=== PATIENT | female | born 1970 | race Two or more races ===

== ENCOUNTER 2016-12-11 11:17 | Emergency (ER) | payer OTHER ==
[2016-12-11 11:23] VITALS: BP 131/71; PULSE 110; TEMP 99.4; BMI 25.7
[2016-12-11] MEDS ORDERED: HYDROmorphone HCL CARPU-JECT 1 MG/1 ML DISP.SYRIN IM ONE ×2 (12:12→14:23)
[2016-12-11] MEDS ORDERED: HYDROmorphone HCL CARPU-JECT 1 MG/1 ML DISP.SYRIN ONE ×2 (12:18→14:25)
--- NOTE | 2016-12-11 12:35 | PDOC ---
History of Present Illness - General History Source: Patient Exam Limitations: No Limitations - History of Present Illness Initial Comments: 12/11/16 13:39 Patient is a 46 year old female with a significant past medical history of Baastrup syndrome, pancreatitis (s/p cholecystectomy), nephrolithiasis, and diverticulitis and chronic back pain, DVT (4 years ago), who presents to the ED with complaints of left lower leg pain that began 1 day ago. She reports lower left leg pain began suddenly yesterday when she attempted to sit up. Patient states lower left leg pain is a sharp pain that she rates as a 10/10 in intensity that she states feels similar to previous DVT experience. She reports being prescribed Levaquin, and Flagyl for 5 days after being discharged from [facility] for papillary necrosis of right kidney . She reports experiencing intermittent episodes of nausea, and vomiting x1 secondary left lower leg pain. Denies chest pain, SOB. Denies swelling, erythema. Denies recent trauma. Denies any other symptoms Allergies: Flagyl. Surgical history: Gallbladder removed, Appendectomy. Social history PMD: Dr. Baumann. <Joseph Restrepo - Last Filed: 12/11/16 13:39> - General History Source: Patient Exam Limitations: No Limitations <Corby Cotto - Last Filed: 12/11/16 14:17> - General Chief Complaint: Pain, Acute Stated Complaint: LT LEG PAIN Time Seen by Provider: 12/11/16 11:44 Past History <Joseph Restrepo - Last Filed: 12/11/16 13:39> - Past Medical History Anemia: No Asthma: No Cancer: No 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.) CVA: No COPD: No CHF: No Dementia: No Diabetes: No GI Disorders: Yes (PANCREATITIS,DIVERTICULITIS, COLITIS) Disorders: Yes (right renal papillary necrosis; kidney stones; renal stents on the right si) HTN: No Hypercholesterolemia: No Kidney Stones: Yes Liver Disease: No Seizures: No Thyroid Disease: No Other medical history: SPINAL STENOSIS. HERNIATED DISCS. - Surgical History Abdominal Surgery: Yes Appendectomy: Yes Cardiac Surgery: No Cholecystectomy: Yes Lung Surgery: No Neurologic Surgery: No Orthopedic Surgery: No - Family Disease History Family Disease History: Heart Disease: Father - Immunization History Immunization Up to Date: Yes - Suicide/Smoking/Psychosocial Hx Smoking Status: No Smoking History: Never smoked Have you smoked in the past 12 months: No Number of Cigarettes Smoked Daily: 0 Hx Alcohol Use: No Drug/Substance Use Hx: No Substance Use Type: None Hx Substance Use Treatment: No <Corby Cotto - Last Filed: 12/11/16 14:17> - Past Medical History Allergies/Adverse Reactions: Allergies Allergy/AdvReac Type Severity Reaction Status Date / Time lidocaine [From Lidoderm] Allergy Mild itchiness Verified 12/11/16 11:19 vancomycin Allergy Mild Hives Verified 12/11/16 11:19 morphine Allergy Difficulty Verified 12/11/16 11:19 Breathing ketorolac tromethamine AdvReac Verified 12/11/16 11:19 [From Toradol] NSAIDS (Non-Steroidal AdvReac Verified 12/11/16 11:19 Anti-Inflamma Home Medications: Ambulatory Orders FENTANYL 50mcg PATCH [DURAGESIC 50 mcg PATCH -] 1 each TD Q72H #10 patch.td72 Cyclobenzaprine HCl [Flexeril -] 10 mg PO TID 10/05/15 Gabapentin 300 mg PO TID 10/05/15 Hydrocodone/Acetaminophen [Lorcet 5-325 mg Tablet] 1 each PO PRN PRN 12/11/16 Tramadol HCl 50 mg PO Q6H PRN #12 tablet MDD 4 12/11/16 Review of Systems - Review of Systems Able to Perform ROS?: Yes Comments:: 12/11/16 13:39 GENERAL/CONSTITUTIONAL: No fever or chills. No weakness. HEAD, EYES, EARS, NOSE AND THROAT: No change in vision. No ear pain or discharge. No sore throat. CARDIOVASCULAR: No chest pain or shortness of breath. RESPIRATORY: No cough, wheezing, or hemoptysis. GASTROINTESTINAL: No nausea, vomiting, diarrhea or constipation. GENITOURINARY: No dysuria, frequency, or change in urination. MUSCULOSKELETAL: +Lower left extremity pain No joint or muscle swelling. No neck or back pain. SKIN: No rash NEUROLOGIC: No headache, vertigo, loss of consciousness, or change in strength/ sensation. ENDOCRINE: No increased thirst. No abnormal weight change. HEMATOLOGIC/LYMPHATIC: No anemia, easy bleeding, or history of blood clots. ALLERGIC/IMMUNOLOGIC: No hives or skin allergy. All Other Systems: Reviewed and Negative <Kaye,Joseph - Last Filed: 12/11/16 13:39> *Physical Exam - Vital Signs Last Vital Signs Temp Pulse Resp BP Pulse Ox 99.4 F 110 H 18 131/71 99 12/11/16 11:18 12/11/16 11:18 12/11/16 11:18 12/11/16 11:18 12/11/16 11:18 - Physical Exam Comments: 12/11/16 13:40 GENERAL: Awake, alert, and fully oriented, in no acute distress HEAD: No signs of trauma EYES: PERRLA, EOMI, sclera anicteric, conjunctiva clear ENT: Auricles normal inspection, hearing grossly normal, nares patent, oropharynx clear without exudates. Moist mucosa NECK: Normal ROM, supple, no lymphadenopathy, JVD, or masses LUNGS: Breath sounds equal, clear to auscultation bilaterally. No wheezes, and no crackles HEART: Regular rate and rhythm, normal S1 and S2, no murmurs, rubs or gallops ABDOMEN: Soft, nontender, normoactive bowel sounds. No guarding, no rebound. No masses EXTREMITIES: 2+ DP pulse. +Tenderness to distal calf. +sensation intact. + Tenderness to palpation distal left calf. Negative Margareth sign. Normal range of motion, no edema. No clubbing or cyanosis. No cords, erythema, or tenderness NEUROLOGICAL: Cranial nerves II through XII grossly intact. Normal speech, normal gait SKIN: Warm, Dry, normal turgor, no rashes or lesions noted. <Joseph Restrepo - Last Filed: 12/11/16 13:39> - Vital Signs Last Vital Signs Temp Pulse Resp BP Pulse Ox 99.4 F 110 H 18 131/71 99 12/11/16 11:18 12/11/16 11:18 12/11/16 11:18 12/11/16 11:18 12/11/16 11:18 <Corby Cotto - Last Filed: 12/11/16 14:17> ED Treatment Course - Medications Given in the ED: ED Medications Discontinued Medications Generic Name Dose Route Start Last Admin Trade Name Freq PRN Reason Stop Dose Admin Hydromorphone HCl 1 mg 12/11/16 12:12 12/11/16 12:17 Dilaudid Injection - IM 12/11/16 12:13 1 mg ONCE ONE Administration <Joseph Restrepo - Last Filed: 12/11/16 13:39> - RADIOLOGY Radiology Studies Ordered: Category Date Time Status DUPLEX VASCUL US-1 LEG [US] Stat Ultrasound 12/11/16 12:12 Ordered - Medications Given in the ED: ED Medications Discontinued Medications Generic Name Dose Route Start Last Admin Trade Name Freq PRN Reason Stop Dose Admin Hydromorphone HCl 1 mg 12/11/16 12:12 12/11/16 12:17 Dilaudid Injection - IM 12/11/16 12:13 1 mg ONCE ONE Administration <Corby Cotto - Last Filed: 12/11/16 14:17> Medical Decision Making - Medical Decision Making 12/11/16 12:30 A portion of this note was documented by scribe services under my direction. I have reviewed the details of the note, within reason, and agree with the documentation with the following case summary and management plan written by me. Patient treated in the ED. Nursing notes are reviewed and incorporated into the medical decision-making. Vital signs reviewed. Vital Signs Temp Pulse Resp BP Pulse Ox 99.4 F 110 H 18 131/71 99 12/11/16 11:18 12/11/16 11:18 12/11/16 11:18 12/11/16 11:18 12/11/16 11:18 46 year old female c/ hx of Baastrup Syndrome, DJD and chronic back pain p/w left lower calf pain. The patient reported sudden pain yesterday, and thought this was secondary to a DVT. However, pt was recently discharged several days ago for pseudomonas UTI and discharged on levaquin. No fevers, chills. Differential includes DVT vs. adverse reaction (tendonitis) 2/2 fluoroquinolone. Ultrasound reviewed. No DVTs. 12/11/16 14:[address] Alon Cabrera (ID). Dr. Cabrera at bedside and examined patient. Also feels that fluoroquinolones may be potential cause of leg pain. We both recommended to discontinue the fluoroquinolone. Given that the patient has no symptoms, no fever, no pain, will not recommend any new antibiotics. Return precautions given including reoccurence of fevers or urinary symptoms. Pt feels better and understands to be cautious with ambulation as to avoid tendon rupture. Pt verbalizes understanding and agrees with plan. Will discharge with tramadol. Pt states that she had tolerated tramadol with no allergic reaction I discussed the physical exam findings, ancillary test results and final diagnoses with the patient. I answered all of the patient's questions. The patient was satisfied with the care received and felt comfortable with the discharge plan and treatment plan. The patient will call their primary care physician within 24 hours to arrange follow-up and will return to the Emergency Department with any new, persistant or worsening symptoms. <Corby Cotto - Last Filed: 12/11/16 14:17> *DC/Admit/Observation/Transfer - Attestations Scribe Attestion: 12/11/16 13:40 Documentation prepared by Joseph Restrepo, acting as medical policy specialist for Corby Cotto MD. <Joseph Restrepo - Last Filed: 12/11/16 13:39> - Discharge Dispostion Admit: No <Corby Cotto - Last Filed: 12/11/16 14:17> Diagnosis at time of Disposition: Tendonitis - Discharge Dispostion Disposition: HOME Condition at time of disposition: Stable - Prescriptions Prescriptions: Tramadol HCl 50 mg PO Q6H PRN #12 tablet MDD 4 PRN Reason: Severe Pain - Referrals Referrals: Rina Baumann MD [Primary Care Provider] - - Patient Instructions Printed Discharge Instructions: DI for Tendinitis, DI for Achilles Tendinopathy Additional Instructions: Please STOP the levaquin. Your tendinitis may be from the antibiotics. Please elevate the leg and do not participate in heavy physical activity until your pain has resolved. Follow up with your doctor.
--- NOTE | 2016-12-11 13:47 | PN ---
Progress Note, Physician Chief Complaint: ID 46 year old Mike Erwin female recently discharged from [facility] where she was treated for Psuedomonal UTI. Apparently spent 3-4 days after she presented with RUQ pain and diagnosed with UTI per patient. She had no venous access and was given oral Levofloxacin for a few days in the hospital and given Rx at home whcih she took for a 2-3 days. She presents now complaining of pain in the left calf area radiating into her achilles area and heel. Pain ful to walk. A doppler here negative for DVT. She has no fever chills urinary complaints. She reports a history of papillary necrosis of the right kidney. Other history chronic back pain ?neprolithiasis DVT years ago cholecystectomy. Lives with her mom locally. - Objective Vital Signs: Vital Signs Temperature 99.4 F 12/11/16 11:18 Pulse Rate 110 H 12/11/16 11:18 Respiratory Rate 18 12/11/16 11:18 Blood Pressure 131/71 12/11/16 11:18 O2 Sat by Pulse Oximetry (%) 99 12/11/16 11:18 Constitutional: Yes: Well Nourished, No Distress Eyes: Yes: WNL, Conjunctiva Clear HENT: Yes: WNL, Atraumatic Neck: Yes: WNL, Supple Cardiovascular: Yes: WNL, Regular Rate and Rhythm, S1, S2 Respiratory: Yes: WNL, Regular, CTA Bilaterally Gastrointestinal: Yes: WNL, Normal Bowel Sounds, Soft. No: Tenderness, Tenderness, Epigastrium, Tenderness, Rebound Extremities: Yes: Other (Tender long left medialcalf area extendingto achilles tendon) Edema: No Problem List - Problems (1) Renal papillary necrosis Code(s): N17.2 - ACUTE KIDNEY FAILURE WITH MEDULLARY NECROSIS (2) Pseudomonas urinary tract infection Code(s): N39.0 - URINARY TRACT INFECTION, SITE NOT SPECIFIED B96.5 - PSEUDOMONAS (MALLEI) CAUSING DISEASES CLASSD ELSWHR (3) Achilles tendinitis Code(s): M76.60 - ACHILLES TENDINITIS, UNSPECIFIED LEG Assessment/Plan Assessment Suspect floroquinolone induced tendinitis involving the achilles tendon Recent pseudomonal UTI per patient with currently no symptoms Plan Would discontinue Levoflox immediately. Advise follow up with orthopedics should pain worsen or persist Minimize weight bearing for a while Patient has poor venous access She is not febrile and has no urinary complaints.The oral options are none and she did take 6 doses of a quinolone which hopefully is enough to treat ? UTI Follow up PMD Rick DELGADO
== END 2016-12-11 14:30 | disposition home or self-care (01) ==
LOC: JER 11:17
PROC: 3E023NZ Introduction of Analgesics, Hypnotics, Sedatives into Muscle, Percutaneous Approach (ICD-10-PCS; principal; 2016-12-11)
DX: M77.9 Enthesopathy, unspecified (principal); M48.20 Kissing spine, site unspecified; N20.0 Calculus of kidney; G89.29 Other chronic pain; Z86.718 Personal history of other venous thrombosis and embolism
CPT/HCPCS: 93971-TC; 96372; 99282-25

== ENCOUNTER 2017-03-08 09:35 | Inpatient (IN) | payer OTHER ==
--- NOTE | 2017-03-08 09:52 | PDOC ---
History of Present Illness - History of Present Illness Initial Comments: 03/08/17 10:07 CC: N/V/abdominal pain HPI: 46 year old female with a significant past medical history of Baastrup syndrome, pancreatitis (s/p cholecystectomy), nephrolithiasis, and diverticulitis and chronic back pain, DVT (4 years ago), who presents to the ED Nausea vomiting diffuse abdominal pain maximally in the epigastrium since yesterday greater than 10 episodes of vomiting inability tolerate fluids also complaining of decreased flatus symptoms are moderate to severe persistent constant no exacerbating or alleviating factors Allergies: Flagyl. Surgical history: Gallbladder removed, Appendectomy. Social history PMD: Dr. Baumann. <Jae King - Last Filed: 03/08/17 16:45> - General History Source: Patient Exam Limitations: No Limitations <Karen Mejia - Last Filed: 03/08/17 16:53> - General Chief Complaint: Nausea/Vomiting Stated Complaint: VOMITING, PAIN/ ABD, BACK Time Seen by Provider: 03/08/17 09:48 Past History - Past Medical History Anemia: No Asthma: No Cancer: No 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.) CVA: No COPD: No CHF: No Dementia: No Diabetes: No GI Disorders: Yes (PANCREATITIS,DIVERTICULITIS, COLITIS) Disorders: Yes (right renal papillary necrosis; kidney stones; renal stents on the right si) HTN: No Hypercholesterolemia: No Kidney Stones: Yes Liver Disease: No Seizures: No Thyroid Disease: No - Surgical History Abdominal Surgery: Yes Appendectomy: Yes Cardiac Surgery: No Cholecystectomy: Yes Lung Surgery: No Neurologic Surgery: No Orthopedic Surgery: No - Family Disease History Family Disease History: Heart Disease: Father - Immunization History Immunization Up to Date: Yes - Suicide/Smoking/Psychosocial Hx Smoking Status: No Smoking History: Never smoked Have you smoked in the past 12 months: No Number of Cigarettes Smoked Daily: 0 Hx Alcohol Use: No Drug/Substance Use Hx: No Substance Use Type: None Hx Substance Use Treatment: No <Jae King - Last Filed: 03/08/17 16:45> <Karen Mejia - Last Filed: 03/08/17 16:53> - Past Medical History Allergies/Adverse Reactions: Allergies Allergy/AdvReac Type Severity Reaction Status Date / Time lidocaine [From Lidoderm] Allergy Mild itchiness Verified 03/08/17 09:43 vancomycin Allergy Mild Hives Verified 03/08/17 09:43 gentamicin Allergy Verified 03/08/17 10:16 morphine Allergy Difficulty Verified 03/08/17 09:43 Breathing ketorolac tromethamine AdvReac Verified 03/08/17 09:43 [From Toradol] NSAIDS (Non-Steroidal AdvReac Verified 03/08/17 09:43 Anti-Inflamma Home Medications: Ambulatory Orders FENTANYL 50mcg PATCH [DURAGESIC 50 mcg PATCH -] 1 each TD Q72H #10 patch.td72 Cyclobenzaprine HCl [Flexeril -] 10 mg PO TID 10/05/15 Gabapentin 300 mg PO TID 10/05/15 Hydrocodone/Acetaminophen [Lorcet 5-325 mg Tablet] 1 each PO PRN PRN 12/11/16 Tramadol HCl 50 mg PO Q6H PRN #12 tablet MDD 4 12/11/16 Review of Systems - Review of Systems Comments:: 03/08/17 12:09 ROS: A complete review of 10 out of 10 review of systems is taken and is negative apart from what is previously mentioned below and in the HPI. <Jae King - Last Filed: 03/08/17 16:45> *Physical Exam - Physical Exam Comments: 03/08/17 12:09 Vitals: Triage Vital signs reviewed General Appearance: Moderate acute distress, well nourished well developed, Head: Atraumatic, Neck: Supple;No Nucal rigidity Chest Wall: Nontender Cardiac: Regular rate and rhythym, no murmurs, no rubs, no gallops, Lungs: Clear to auscultation bilateral, good air movement bilaterally, Abdomen: Soft, non distended, normal bowel sounds, epigastric tenderness to palpation Extremities: Full range of motion to all extremities, no cyanosis, clubbing, or edema Skin: Warm and dry, no rashes or lesions, no rash, no petechiae Neuro: AOX3; Cranial Nerves 2-12 grossly intact, Strength intact to all extremities, Sensation intact to all extremities,gait normal Psych: normal mood, normal affect <Jae King - Last Filed: 03/08/17 16:45> - Vital Signs Last Vital Signs Temp Pulse Resp BP Pulse Ox 101 H 20 139/95 100 03/08/17 10:14 03/08/17 10:14 03/08/17 10:14 03/08/17 10:14 <Karen Mejia - Last Filed: 03/08/17 16:53> ED Treatment Course - LABORATORY CBC & Chemistry Diagram: 03/08/17 11:41 03/08/17 11:41 <Jae King - Last Filed: 03/08/17 16:45> - LABORATORY CBC & Chemistry Diagram: 03/08/17 11:41 03/08/17 11:41 - Medications Given in the ED: ED Medications Discontinued Medications Generic Name Dose Route Start Last Admin Trade Name Freq PRN Reason Stop Dose Admin Ondansetron HCl 4 mg 03/08/17 10:07 03/08/17 10:10 Zofran Odt - SL 03/08/17 10:08 4 mg ONCE ONE Administration <Karen Mejia - Last Filed: 03/08/17 16:53> Medical Decision Making - Medical Decision Making 03/08/17 16:46 CT findings as dictated. Case discussed with radiologist. Slight stranding around the right kidney there is hydronephrosis and evidence of obstructing stone , urology consulted at 428pm. Patient will need stent placement. Patient made nothing by mouth preoperative labs ordered Zosyn given We will admit to medicine for further management patient to have stent placed this evening. <Jae King - Last Filed: 03/08/17 16:45> - Medical Decision Making 03/08/17 11:24 46 year old female with a significant past medical history of Baastrup syndrome , pancreatitis (s/p cholecystectomy), nephrolithiasis, and diverticulitis and chronic back pain, DVT (4 years ago), who presents to the ED with complaints of left lower leg pain that began 1 day ago. Imaging: CT Abdomen & Pelvis w/o contrast Reported by: Dr. Watkins Reviewed by: Dr. King Impression: A 1.0 * 0.5 cm distal right ureteral calculus is seen adjacent to the level of the ureterovesical junction. There is resultant hydronephrosis which is at least moderate. Plan Blood Bank: Type and Screen Medications: Fentanyl Injection, Zofran, Normal Saline, Hydromorphone, Lorazepam , Piperacillin CT Scan: Abdomen and Pelvis with contrast Cardiology: EKG Radiology: Chest XR Labs: CBC, CMP, lactic acid, lipase <Karen Mejia - Last Filed: 03/08/17 16:53> *DC/Admit/Observation/Transfer - Discharge Dispostion Admit: Yes <Jae King - Last Filed: 03/08/17 16:45> - Attestations Scribe Attestion: 03/08/17 11:28 Documentation prepared by Karen Mejia, acting as biomedical equipment tech for Jae King MD. <Karen Mejia - Last Filed: 03/08/17 16:53> Diagnosis at time of Disposition: Hydronephrosis with obstructing calculus
[2017-03-08] MEDS ORDERED: SODIUM CHLORIDE 0.9% 1000 ML INFUS.BAG IV ONE ×2 (09:59→12:59)
[2017-03-08] MEDS ORDERED: ONDANSETRON 4 MG/2 ML VIAL IVPUSH ONE (09:59)
[2017-03-08] MEDS ORDERED: ONDANSETRON *ODT* 4 MG TABLET SL ONE (10:07)
[2017-03-08] MEDS ORDERED: ONDANSETRON *ODT* 4 MG TABLET ONE (10:11)
[2017-03-08] MEDS ORDERED: ONDANSETRON 4 MG/2 ML VIAL ONE (10:11)
[2017-03-08 11:56] LABS: HEMATOCRIT 42.4 % (32.4-45.2); HEMOGLOBIN 13.6 GM/dL (10.7-15.3); MCHC 32.1 g/dl (32.0-36.0); MEAN CELL VOLUME 87.1 fl (80-96); MEAN PLT VOLUME 7.7 fl (7.5-11.1); PLATELET COUNT 439 K/MM3 (134-434); RBC 4.86 M/mm3 (3.60-5.2); RDW 15.9 % (11.6-15.6); WHITE BLOOD COUNT 21.4 K/mm3 (4.0-10.0)
[2017-03-08 12:23] LABS: ALBUMIN 4.4 g/dl (3.4-5.0); ANION GAP 12 (8-16); BILIRUBIN,TOTAL 0.8 mg/dL (0.2-1.0); BLOOD UREA NITROGEN 13 mg/dL (7-18); CHLORIDE 105 mmol/L (98-107); CO2 21 mmol/L (21-32); CREATININE 1.1 mg/dL (0.55-1.02); GLUCOSE,RANDOM 93 mg/dL (74-106); LIPASE 83 U/L (73-393); POTASSIUM 3.5 mmol/L (3.5-5.1); SGOT/AST 20 U/L (15-37); SGPT/ALT 28 U/L (12-78); SODIUM 138 mmol/L (136-145); TOT PROT 8.5 g/dl (6.4-8.2)
[2017-03-08 12:24] LABS: ALK PHOS 88 U/L (45-117)
[2017-03-08 12:51] LABS: PLATELET ESTIMATE INCREASED
[2017-03-08] MEDS ORDERED: PIPERACIL/TAZOB 3.375 GM 3.375 GM/50 ML PREMIX IVPB ONE (13:00)
[2017-03-08] MEDS ORDERED: PIPERACILLIN/TAZOB 3.375 GM 3.375 GM in DEXTROSE 5%-WATER - 100 ML IVPB ONE ×2 (14:00→14:45)
[2017-03-08] MEDS ORDERED: HYDROmorphone HCL CARPU-JECT 2 MG/1 ML DISP.SYRIN ONE (14:30)
[2017-03-08 15:11] LABS: URINE APPEARANCE CLEAR; URINE BILIRUBIN NEGATIVE (NEGATIVE); URINE BLOOD NEGATIVE (NEGATIVE); URINE COLOR STRAW; URINE GLUCOSE (UA) NEGATIVE (NEGATIVE); URINE KETONE TRACE (NEGATIVE); URINE LEUK ESTERASE TRACE (NEGATIVE); URINE NITRITE NEGATIVE (NEGATIVE); URINE PROTEIN NEGATIVE (NEGATIVE); URINE UROBILINOGEN NEGATIVE mg/dL (0.2-1.0)
[2017-03-08] MEDS ORDERED: HYDROmorphone HCL CARPU-JECT 1 MG/1 ML DISP.SYRIN IVPUSH ONE (15:11)
[2017-03-08 15:12] LABS: EPI CELLS RARE /HPF (FEW); URINE MUCUS RARE
--- NOTE | 2017-03-08 16:37 | HP ---
CHIEF COMPLAINT: " Right sided abdominal pain" PCP: WOLFGANG Baumann. HISTORY OF PRESENT ILLNESS: Patient is a 46 year old female presented to the ED with the chief complaint of worsening right abdominal pain since 3 days. As per the patient, the pain started 3 days ago, worsening since last night at around 11pm and this morning at 5am waking up from her sleep. She describes the pain to be excruciating, 10/ 10 in intensity, cramping in nature, non radiating, associated with nausea and more than 10 episodes of vomiting. Vomitus mainly contained food particles and later it was greenish in color. Also reports to have chills but no fever or rigors. She then came to the ED for further evaluation. Patient also mentions to have chest pain, occasionally, centrally located, pressure type, lasting for few seconds. Denies palpitation, sob, cough, headache, loc, trauma, hematuria, dysuria, urgency or frequency. Has chronic back pain for which she takes pain meds. Is on disabilty. Uses cane for support. Lives with her mother. Sleep/Appetite normal prior to illness. ER course was notable for: (1) Afebrile, tachycardic, Leukocytosis, lactic acidosis (2) Abdominal/Pelvis CT with IV contrast: Obstructed right uteteral stone at UVP junction with right moderate hydronephrosis (3) IV Fluids, IV Zosyn, Fentanyl, Zofran Recent Travel: PAST MEDICAL HISTORY: Baastrup syndrome, Gallstone pancreatitis, Had ERCP and cholecystectomy, diverticulitis, colitis, H.Pylori on 11/29, Renal Calculi, ( papillary necrosis, multiple renal stent- removed, chronic back pain, DVT (4 years ago) PAST SURGICAL HISTORY: Tubal ligation in 1997, Appendectomy, Cholecystectomy Social History: Smoking: Denies Alcohol: Denies Drugs: Denies Family History: Allergies lidocaine [From Lidoderm] Allergy (Mild, Verified 03/08/17 09:43) itchiness vancomycin Allergy (Mild, Verified 03/08/17 09:43) Hives gentamicin Allergy (Verified 03/08/17 10:16) morphine Allergy (Verified 03/08/17 09:43) Difficulty Breathing ketorolac tromethamine [From Toradol] Adverse Reaction (Verified 03/08/17 09:43) KIDNEY BLEEDING NSAIDS (Non-Steroidal Anti-Inflamma Adverse Reaction (Verified 03/08/17 09:43) due to increased bleeding due to necrosis HOME MEDICATIONS: Home Medications Medication Instructions Recorded FENTANYL 50mcg PATCH [DURAGESIC 50 1 each TD Q72H #10 patch.td72 07/16/14 mcg PATCH -] Cyclobenzaprine HCl [Flexeril -] 10 mg PO TID 10/05/15 Gabapentin 300 mg PO TID 10/05/15 Hydrocodone/Acetaminophen [Lorcet 1 each PO PRN PRN 12/11/16 5-325 mg Tablet] Tramadol HCl 50 mg PO Q6H PRN #12 tablet MDD 4 12/11/16 REVIEW OF SYSTEMS CONSTITUTIONAL: Present: generalized weakness, Absent: fever, chills, diaphoresis, malaise, loss of appetite, weight change HEENT: Absent: rhinorrhea, nasal congestion, throat pain, throat swelling, difficulty swallowing, mouth swelling, ear pain, eye pain, visual changes CARDIOVASCULAR: Absent: chest pain, syncope, palpitations, irregular heart rate, lightheadedness , peripheral edema RESPIRATORY: Absent: cough, shortness of breath, dyspnea with exertion, orthopnea, wheezing, stridor, hemoptysis GASTROINTESTINAL: Present: nausea, vomiting, Absent: abdominal pain, abdominal distension, diarrhea, constipation, melena, hematochezia GENITOURINARY: Present: flank pain Absent: dysuria, frequency, urgency, hesitancy, hematuria, genital pain MUSCULOSKELETAL: Absent: myalgia, arthralgia, joint swelling, back pain, neck pain SKIN: Absent: rash, itching, pallor HEMATOLOGIC/IMMUNOLOGIC: Absent: easy bleeding, easy bruising, lymphadenopathy, frequent infections ENDOCRINE: Absent: unexplained weight gain, unexplained weight loss, heat intolerance, cold intolerance NEUROLOGIC: Absent: headache, focal weakness or paresthesias, dizziness, unsteady gait, seizure, mental status changes, bladder or bowel incontinence PSYCHIATRIC: Absent: anxiety, depression, suicidal or homicidal ideation, hallucinations. PHYSICAL EXAMINATION Vital Signs - 24 hr 03/08/17 03/08/17 03/08/17 10:14 11:45 14:14 Temperature 98.2 F Pulse Rate 101 H Pulse Rate [ 103 H Apical] Respiratory 20 Rate Blood Pressure 139/95 Blood Pressure 129/67 [Left Arm] O2 Sat by Pulse 100 99 Oximetry (%) GENERAL: Awake, alert, and fully oriented, in no acute distress. HEAD: Normal with no signs of trauma. EYES: Pupils equal, round and reactive to light, extraocular movements intact, sclera anicteric, conjunctiva clear. No lid lag. EARS, NOSE, THROAT: Ears normal, nares patent, oropharynx clear without exudates. Moist mucous membranes. NECK: Normal range of motion, supple without lymphadenopathy, JVD, or masses. LUNGS: Breath sounds equal, clear to auscultation bilaterally. No wheezes, and no crackles. No accessory muscle use. HEART: Regular rate and rhythm, normal S1 and S2 without murmur, rub or gallop. ABDOMEN: Soft, nontender, not distended, normoactive bowel sounds, no guarding, no rebound, no masses. No hepatomegaly or splenomegaly. MUSCULOSKELETAL: Normal range of motion at all joints. No bony deformities or tenderness. No CVA tenderness. UPPER EXTREMITIES: 2+ pulses, warm, well-perfused. No cyanosis. No clubbing. No peripheral edema. LOWER EXTREMITIES: 2+ pulses, warm, well-perfused. No calf tenderness. No peripheral edema. NEUROLOGICAL: Cranial nerves II-XII intact. Normal speech. Normal gait. PSYCHIATRIC: Cooperative. Good eye contact. Appropriate mood and affect. SKIN: Warm, dry, normal turgor, no rashes or lesions noted, normal capillary refill. Laboratory Results - last 24 hr 03/08/17 03/08/17 03/08/17 11:41 11:41 11:41 WBC 21.4 H D RBC 4.86 Hgb 13.6 Hct 42.4 MCV 87.1 MCH 28.0 MCHC 32.1 RDW 15.9 H Plt Count 439 H MPV 7.7 Total Counted 100 Neutrophils % No Result Required. Neutrophils % (Manual) 80.0 Lymphocytes % No Result Required. Lymphocytes % (Manual) 12.0 Monocytes % (Manual) 8 Platelet Estimate Increased Platelet Comment No clumping noted Sodium 138 Potassium 3.5 Chloride 105 Carbon Dioxide 21 Anion Gap 12 BUN 13 D Creatinine 1.1 H D Creat Clearance w eGFR 53.71 Random Glucose 93 Lactic Acid 2.3 H* Calcium 9.0 Total Bilirubin 0.8 AST 20 ALT 28 Alkaline Phosphatase 88 Total Protein 8.5 H Albumin 4.4 Lipase 83 Urine Color Urine Appearance Urine pH Ur Specific Brandywine Urine Protein Urine Glucose (UA) Urine Ketones Urine Blood Urine Nitrite Urine Bilirubin Urine Urobilinogen Urine WBC (Auto) Urine RBC (Auto) Ur Epithelial Cells Urine Mucus 03/08/17 15:03 WBC RBC Hgb Hct MCV MCH MCHC RDW Plt Count MPV Total Counted Neutrophils % Neutrophils % (Manual) Lymphocytes % Lymphocytes % (Manual) Monocytes % (Manual) Platelet Estimate Platelet Comment Sodium Potassium Chloride Carbon Dioxide Anion Gap BUN Creatinine Creat Clearance w eGFR Random Glucose Lactic Acid Calcium Total Bilirubin AST ALT Alkaline Phosphatase Total Protein Albumin Lipase Urine Color Straw Urine Appearance Clear Urine pH 7.0 Ur Specific [place] 1.024 Urine Protein Negative Urine Glucose (UA) Negative Urine Ketones Trace H Urine Blood Negative Urine Nitrite Negative Urine Bilirubin Negative Urine Urobilinogen Negative Urine WBC (Auto) 1 Urine RBC (Auto) 1 Ur Epithelial Cells Rare Urine Mucus Rare ASSESSMENT/PLAN: Patient is a 46-year old female with significant past medical history of Baastrup syndrome, Gallstone pancreatitis, Had ERCP and cholecystectomy, diverticulitis, colitis, H.Pylori on 11/29, Renal Calculi, (papillary necrosis, multiple renal stent- removed, chronic back pain, DVT (4 years ago) presented with abdominal pain, vomiting was found to be in Obstructed right ureteral stone at UVP junction with right moderate hydronephrosis. # Sepsis secondary to Obstructed right ureteral stone at UVP junction with right moderate hydronephrosis/ likely has pyelonephritis c/o abdominal pain associated with >10 episodes of vomiting, h/o renal stent in the past On arrival, she was afebrile, tachycardic, Leukocytosis, lactic acidosis Patient going to OR from ED for a stent placement, Dr. Perez consult requested. Preop eval- EKG, CXR, Coags, type and screen. Admit in Med-Surg NPO Continue IV NS @ 100mls/hr IV Zosyn 3.375mg, will place ID consult for approval IV Dilaudid 0.5 mg Q4H PRN Fentanyl patch changed today, to be changed on 05/06/2017 midnight IV Phenargan Q6H PRN Villarreal catheter, monitor output Lactic acid resolved f/up urine and blood cultures Needs outpatient follow up with urology # Occasional Chest pain Needs stress test as outpatient. ON admission, EKG normal sinus # Chronic back pain likely due to Basstrup syndrome Hold home pain meds, patient is already on IV Dilaudid Continue Gabapentin 300mg TID after surgery Reevaluate in am and adjust the medication # FEN IV NS @ 100mls/hr Electrolytes to be repeated in AM NPO, can eat after surgery # Prophylaxis For DVT: Heparin 5000 IU sq TID, post operative care For GI: Not indicated # Code Status: Full Code Illness, Investigation and Plan of care to be explained to the patient. Case discussed with Dr. Valenzuela. Visit type - Emergency Visit Emergency Visit: Yes ED Registration Date: 03/08/17 Care time: The patient presented to the Emergency Department on the above date and was hospitalized for further evaluation of their emergent condition. - New Patient This patient is new to me today: Yes Date on this admission: 03/08/17 - Critical Care Critical Care patient: No
--- NOTE | 2017-03-08 16:47 | HP ---
CHIEF COMPLAINT: n/v/abdominal pain PCP: [facility] Management: Justin Min HISTORY OF PRESENT ILLNESS: 46yo woman with PMH of recurrent UTIs (h/o Pseudomonas in 12/2016), nephrolithiasis s/p multiple stents, R renal papillary necrosis, pancreatitis (s /p cholecystectomy), diverticulitis, H. pylori, mastoiditis, provoked DVT (4 years ago), chronic back pain who p/w acute onset of R abdominal/flank pain, nausea and vomiting since early this morning. For the past 2-3 days the patient initially had nausea, non-bloody diarrhea, and some abdominal pain. She ate some dinner last night, but starting around 3AM she had severe R-sided abdominal pain that woke her from her sleep. The pain is 10/10 concentrated in RUQ that is worse with movement. She has had over 10 episodes of non-bloody emesis since the pain started, including in the ED. Denies hematuria (but endorsed to Dr. Valenzuela). Endorses chills without fever. Patient also reports history of intermittent chest pressure that lasts for several minutes. She describes the pain as heavy pressure or sometimes a "burning" sensation. Currently denies any chest symptoms. Reports that she has had EKG in the past, which have all been "normal". 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, 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, , lives at home with mom and 2 of 3 daughters; ambulates with cane at baseline Smoking: Never smoker Alcohol: no Drugs: no Family History: Father - heart disease; uncles with renal stones; maternal grandmother - " of kidney disease" (no DM) Allergies: lidocaine [From Lidoderm] Allergy (Mild, Verified 03/08/17 09:43) --> itchiness vancomycin Allergy (Mild, Verified 03/08/17 09:43) -> Hives gentamicin Allergy (Verified 03/08/17 10:16) -> upset stomache morphine Allergy (Verified 03/08/17 09:43) -> tongue/lip swelling (reports hydromorphone no adverse reaction) Levoquin --> tendonitis HOME MEDICATIONS: Fentanyl 50mcg Patch q3days Gabapentin 300mg PO TID Hydrocodone 10mg PO PRN (MDD 60mg) REVIEW OF SYSTEMS CONSTITUTIONAL: +chills Absent: fever, chills, diaphoresis, generalized weakness, malaise, loss of appetite, weight change HEENT: Absent: rhinorrhea, nasal congestion, throat pain, throat swelling, difficulty swallowing, mouth swelling, ear pain, eye pain, visual changes CARDIOVASCULAR: +chest pressure Absent: chest pain, syncope, palpitations, irregular heart rate, lightheadedness , peripheral edema RESPIRATORY: Absent: cough, shortness of breath, dyspnea with exertion, orthopnea, wheezing, stridor, hemoptysis GASTROINTESTINAL: +nausea, vomiting, abdominal pain, diarrhea Absent: abdominal distension, constipation, melena, hematochezia GENITOURINARY: +R flank pain Absent: dysuria, frequency, urgency, hesitancy, hematuria, genital pain MUSCULOSKELETAL: +chronic back pain Absent: myalgia, arthralgia, joint swelling, neck pain SKIN: Absent: rash, itching, pallor HEMATOLOGIC/IMMUNOLOGIC: Absent: easy bleeding, easy bruising, lymphadenopathy, frequent infections ENDOCRINE: Absent: unexplained weight gain, unexplained weight loss, heat intolerance, cold intolerance NEUROLOGIC: Absent: headache, focal weakness or paresthesias, dizziness, unsteady gait, seizure, mental status changes, bladder or bowel incontinence PSYCHIATRIC: Absent: anxiety, depression, suicidal or homicidal ideation, hallucinations. PHYSICAL EXAMINATION Vital Signs - 24 hr 03/08/17 03/08/17 03/08/17 10:14 11:45 14:14 Temperature 98.2 F Pulse Rate 101 H Pulse Rate [ 103 H Apical] Respiratory 20 Rate Blood Pressure 139/95 Blood Pressure 129/67 [Left Arm] O2 Sat by Pulse 100 99 Oximetry (%) GENERAL: moderate distress, writhing in pain, aaox3 EYES: EOMI, PERRLA, sclera anicteric, conjunctiva clear ENT:oropharynx clear without exudates, cracked lips LUNGS: CTAB HEART: RRR, normal s1/s2, no m/r/g, (-) JVD ABDOMEN: soft, non-distended, ttp RUQ/RLQ, no rebound or guarding, well healed CCY scar : R CVA tenderness, no suprapubic tenderness MSK: lower lumbar/sacral paravertebral ttp LOWER EXTREMITIES: 2+ DP pulses, wwp, no no calf tenderness. no edema. NEUROLOGICAL: CN II-XII intact. Normal speech. gross sensation intact, MS 5/5 in all four extremities CBC, BMP 03/08/17 11:41 03/08/17 11:41 Hepatic Panel Total Bilirubin 0.8 mg/dL (0.2-1.0) 03/08/17 11:41 AST 20 U/L (15-37) 03/08/17 11:41 ALT 28 U/L (12-78) 03/08/17 11:41 Alkaline Phosphatase 88 U/L (45-117) 03/08/17 11:41 Albumin 4.4 g/dl (3.4-5.0) 03/08/17 11:41 Urine Test Results Urine Color Straw 03/08/17 15:03 Urine Appearance Clear 03/08/17 15:03 Urine pH 7.0 (5.0-8.0) 03/08/17 15:03 Ur Specific D[place] 1.024 (1.001-1.035) 03/08/17 15:03 Urine Protein Negative (NEGATIVE) 03/08/17 15:03 Urine Glucose (UA) Negative (NEGATIVE) 03/08/17 15:03 Urine Ketones Trace (NEGATIVE) H 03/08/17 15:03 Urine Blood Negative (NEGATIVE) 03/08/17 15:03 Urine Nitrite Negative (NEGATIVE) 03/08/17 15:03 Urine Bilirubin Negative (NEGATIVE) 03/08/17 15:03 Ur Epithelial Cells Rare /HPF (FEW) 03/08/17 15:03 Urine Mucus Rare 03/08/17 15:03 IMAGING: Addendum: The right renal nephrogram demonstrates a striated appearance within the upper and lower poles suggestive of superimposed acute pyelonephritis. ORIGINAL REPORT Abdomen and pelvis CT (without contrast) Clinical information: delayed study Multiplanar imaging was performed approximately 1 hour following completion of contrast-enhanced CT in order to allow opacification the right renal collecting system and ureter. The current exam demonstrates interval appearance of contrast within the right renal collecting system and ureter to the level of the ureterovesical junction. There is contrast opacification allows definite localization of a 1.0 x 0.5 cm calculus within the right ureter immediately above the level of the ureterovesical junction with resultant hydronephrosis which is at least moderate. In retrospect only this distal right ureteral calculus was present on a prior CT studies of 01/14/2014 and 11/23/2013 although simulating a phlebolith (given the lack of hydronephrosis or hydroureter at that time). Impression: A 1.0 x 0.5 cm distal right ureteral calculus is seen adjacent to the level of the ureterovesical junction. There is resultant hydronephrosis which is at least moderate. EKG: NSR, normal axis and intervals, QTc 469msec Active Medications Acetaminophen (Tylenol -) 325 mg PO Q6H PRN PRN Reason: PAIN Fentanyl (Duragesic 50mcg Patch -) 1 patch TD Q72H [facility] Last Admin: 03/08/17 19:59 Dose: Not Given Gabapentin (Neurontin -) 300 mg PO TID [facility] Heparin Sodium (Porcine) (Heparin -) 5,000 unit SQ TID [facility] Hydromorphone HCl (Dilaudid Injection -) 0.5 mg IVPB Q4H PRN PRN Reason: PAIN Sodium Chloride (Normal Saline -) 1,000 mls @ 125 mls/hr IV ASDIR [facility] Last Admin: 03/08/17 17:36 Dose: 125 mls/hr Piperacillin Sod/Tazobactam (Sod 3.375 gm/ Dextrose) 100 mls @ 200 mls/hr IVPB Q8H-IV [facility] Last Admin: 03/08/17 19:58 Dose: 200 mls/hr Miscellaneous (Duragesic Patch Waste) 1 each TD PRN PRN Oxycodone HCl (Roxicodone -) 5 mg PO Q6H PRN PRN Reason: PAIN Promethazine HCl (Phenergan Injection -) 12.5 mg IVPB Q6H PRN PRN Reason: NAUSEA AND/OR VOMITING ASSESSMENT/PLAN: 46yo woman with PMH of recurrent UTIs, recurrent nephrolithiasis s/p multiple stent placements and lithotripsy, R renal papillary necrosis, pancreatitis s/p CCY and other medical problems who p/w acute onset of severe RUQ abdominal pain , R flank pain with n/v and found to be septic with large 10mm obstructing stone in distal R ureter. #Sepsis 2/2 pyelonephritis due to obstructing stone in R distal ureter -Urology consulted. ED attending discussed with Dr. Perez, who will do urgent stent placement this evening -Continue IVF -ID consulted. Case d/w Dr. Ernandez. Will continue Zosyn 3.375mg Q8H for empiric treatment -f/u urine and blood cultures -pain control Dilaudid 0.5mg IVP Q4H PRN (reports no allergy) and Percocet 5- 325mg Q6H PRN -Phenergan PRN for nausea #SHELBY, last known baseline -Continue IVF #chronic back pain -Continue home fentanyl patch and gabapentin. will hold hydrocodone for now. #FEN: NS@125cc/ lytes wnl / NPO, can resume regular diet after procedure #DVT PPX - SCD's, encourage early ambulation #DISPO: M/S FULL code d/w Dr. Nicolas Cotter MD PGY1 - Internal Medicine Visit type - Emergency Visit Emergency Visit: Yes ED Registration Date: 03/08/17 Care time: The patient presented to the Emergency Department on the above date and was hospitalized for further evaluation of their emergent condition. - New Patient This patient is new to me today: Yes Date on this admission: 03/08/17 - Critical Care Critical Care patient: No
[2017-03-08] MEDS ORDERED: ONDANSETRON 4 MG/2 ML VIAL IVPUSH PRN (17:00)
--- NOTE | 2017-03-08 17:35 | PN ---
Teaching Attending Note Name of Resident: Sharonda Cotter ATTENDING PHYSICIAN STATEMENT I saw and evaluated the patient. I reviewed the resident's note and discussed the case with the resident. I agree with the resident's findings and plan as documented. CC: R abd pain, N/V HPI: 46 y/o lady with h/o nephrolithiasis, diverticulitis , pancreatitis , s/p CCY, chronic back pain due to herniated disks and spinal stenosis , R renal papillary necrosis , h/o pseudomonas UTI, Helicobacter pylori, LLe DVT, mastoiditis and other medical problems who presented with R upper abd pain. in past 2-3 days she has jazmyen having N/V/an non bloody diarhea as well as hematuria. with intermittent RUQ and R flank pain. this am at 3 am, she developed severe , constant, pain in RUQ and R flank. pain is worse with body movements and with palpating the area. in ER she was given IVf, zosyn and urology was called after finding an obstructing stone in R distal ureter with R hydronephrosis . She reports an intermittent CP which feels like pressure, lasts for 2 min .now Cp free OBJECTIVE: AAOx3 , shivering in bed. HEENT: EOMI, round equal pupils , reactive to light , no facial droop, slightly dry MM. No JVD. CV: RRR, no MRG Lungs : ctab ext : no edema or erythema abd: soft, TTP in RLQ, RUQ with no rebound tenderness or guarding. NL BS . R CVA tenderness Neuro : EOMI, round equal pupils , reactive to light , no facial droop, tongue and uvula at mid line . strength 5/5 in upper and lower extremities proximally and distally. ASSESSMENT AND PLAN: 6 y/o lady with h/o nephrolithiasis, diverticulitis , pancreatitis , s/p CCY, chronic back pain due to herniated disks and spinal stenosis , R renal papillary necrosis , h/o pseudomonas UTI, Helicobacter pylori, mastoiditis and other medical problems who presented with R upper abd pain, she was found to be septic with an obstructing R distal ureteral stone . 1- Sepsis 2/2 complicated UTI/pyelonephritis from an obstructing R distal ureteral stone with hydronephrosis. - Stat dose of zosyn given after urine and blood cx were sent - Dr. Perez was called by Dr. King, and is on way for stent placement - Give IVF - cont zosyn. will call ID - pain control, cont her fentanyl patch and give morphine if needed - lactic normalized - follow urine and blood cx - pain control with 0.5 mg of dilaudid q 4 hrs , and percocet in addition to her fentanyl patch. can probably dc dilaudid in am - Pre-op risk stratification: this is an urgent intermediate risk procedure . Due to the urgency of the procedure , cardiac w/u is not indicated as it will delay the procedure and infection could be life threatening. 2- SHELBY: due to volume depletion and obstruction - IVF 3- H/o chronic back pain: - cont fentayl patch - cont neurontin, - for now on dilaudid and percocet for the acute pain. 5-H/o CP; need stress test as out pt 6- DVT PX
[2017-03-08] MEDS: SODIUM CHLORIDE 1,000 ML IV SCH ×2 (17:36→22:55)
[2017-03-08 17:38] LABS: INR 0.97 (0.82-1.09)
[2017-03-08 17:40] LABS: ACTIVATED PTT 23.6 SECONDS (26.9-34.4)
[2017-03-08 18:45] VITALS: BMI 27.3
[2017-03-08] MEDS ORDERED: HYDROmorphone HCL CARPU-JECT 1 MG/1 ML DISP.SYRIN IVPUSH PRN (19:04)
[2017-03-08] MEDS ORDERED: HYDROmorphone HCL CARPU-JECT 1 MG/1 ML DISP.SYRIN IVPB PRN (19:43)
[2017-03-08] MEDS ORDERED: FENTANYL PATCH WASTE TD PRN (19:47)
[2017-03-08] MEDS ORDERED: ACETAMINOPHEN 325 MG TABLET (FP) PO PRN (19:50)
[2017-03-08] MEDS ORDERED: oxyCODONE HCL 5 MG TABLET PO PRN (19:50)
[2017-03-08] MEDS: PIPERACILLIN/TAZOB 3.375 GM 3.375 GM in DEXTROSE 5%-WATER - 100 ML IVPB SCH (19:58)
[2017-03-08] MEDS: fentaNYL 50mcg/hr PATCH.TD72 TD SCH (19:59)
[2017-03-08] MEDS: HYDROmorphone HCL CARPU-JECT 2 MG/1 ML DISP.SYRIN IVPB PRN (20:08)
--- NOTE | 2017-03-08 20:27 | CON.GU ---
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 UTI/pyelo and cons req. - History Source History Provided By: Medical Record Limitations to Obtaining History: No Limitations - Past Medical History Gastrointestinal: Yes: Diverticulitis, Diverticulosis, Pancreatitis ( recurrent... 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 Home Medications - Allergies Allergies/Adverse Reactions: Allergies Allergy/AdvReac Type Severity Reaction Status Date / Time lidocaine [From Lidoderm] Allergy Mild itchiness Verified 03/08/17 09:43 vancomycin Allergy Mild Hives Verified 03/08/17 09:43 gentamicin Allergy Verified 03/08/17 10:16 morphine Allergy Difficulty Verified 03/08/17 09:43 Breathing ketorolac tromethamine AdvReac Verified 03/08/17 09:43 [From Toradol] NSAIDS (Non-Steroidal AdvReac Verified 03/08/17 09:43 Anti-Inflamma - Home Medications Home Medications: Ambulatory Orders FENTANYL 50mcg PATCH [DURAGESIC 50 mcg PATCH -] 1 each TD Q72H #10 patch.td72 Cyclobenzaprine HCl [Flexeril -] 10 mg PO TID 10/05/15 Gabapentin 300 mg PO TID 10/05/15 Hydrocodone/Acetaminophen [Lorcet 5-325 mg Tablet] 1 each PO PRN PRN 12/11/16 Tramadol HCl 50 mg PO Q6H PRN #12 tablet MDD 4 12/11/16 Family Disease History - Family Disease History Family Disease History: Diabetes: Mother (HTN, breast cancer), CA: Mother Review of Systems - Review of Systems Gastrointestinal: reports: Abdominal Pain Genitourinary: reports: Flank Pain Physical Exam- Vital Signs: Vital Signs Temperature 98.2 F 03/08/17 11:45 Pulse Rate 81 03/08/17 18:10 Respiratory Rate 20 03/08/17 10:14 Blood Pressure 140/71 03/08/17 18:10 O2 Sat by Pulse Oximetry (%) 100 03/08/17 18:10 Constitutional: Yes: Well Nourished, Calm Eyes: Yes: WNL, Conjunctiva Clear, EOM Intact HENT: Yes: WNL Cardiovascular: Yes: WNL Respiratory: Yes: WNL, Regular, CTA Bilaterally Gastrointestinal: Yes: WNL, Soft, Tenderness Renal/: Yes: CVA Tenderness - Right Labs: CBC, BMP 03/08/17 11:41 03/08/17 11:41 Imaging - Results Cat Scan: Report Reviewed, Image Reviewed Problem List - Problems (1) Ureteral calculus Code(s): N20.1 - CALCULUS OF URETER (2) Hydronephrosis Code(s): N13.30 - UNSPECIFIED HYDRONEPHROSIS Qualifiers: Hydronephrosis type: with ureteral calculous obstruction Qualified Code(s) : N13.2 - Hydronephrosis with renal and ureteral calculous obstruction (3) Leukocytosis Code(s): D72.829 - ELEVATED WHITE BLOOD CELL COUNT, UNSPECIFIED Qualifiers: Leukocytosis type: unspecified Qualified Code(s): D72.829 - Elevated white blood cell count, unspecified Assessment/Plan Imp: 1 cm obstructing R UVJ calculus w mod R hydro, UTI/pyelo, leukocytosis Rec: urine c+s, iv ceftriaxone, flomax, strain urine, analgesia, cysto R JJ stent insertion. F/U after disch to schedule ESWL vs RULL JJ change after UTI resolved.
--- NOTE | 2017-03-08 20:36 | OP ---
Operative Note - Note: Operative Date: 03/08/17 Pre-Operative Diagnosis: R ureteral calculus, R hydronephrosis, UTI Operation: cystoscopy R JJ stent insertion Findings: 1 cm R UVJ calculus w mod R hydronephrosis Post-Operative Diagnosis: Same as Pre-op Surgeon: Deni Perez Anesthesiologist/SCRIBING MACHINE OPERATOR: Destiny Couch Anesthesia: General Estimated Blood Loss (mls): 0 Drains & Tubes with Location: 6 fr 24 cm R JJ stent Operative Report Dictated: Yes
[2017-03-08] MEDS ORDERED: LACTATED RINGERS SOLUTION 1,000 ML IV SCH (20:45)
[2017-03-08] MEDS ORDERED: PROPOFOL 20 ML ONE ×2 (20:54→21:25)
[2017-03-08] MEDS ORDERED: GENTAMICIN SO4 80 MG/2 ML VIAL ONE (21:32)
[2017-03-08] MEDS ORDERED: GENTAMICIN SO4 80 MG/2 ML VIAL IVPB ONE (21:35)
[2017-03-08] MEDS ORDERED: DEXAMETHASONE SOD PHOSPHATE 4 MG/1 ML VIAL ONE (21:35)
[2017-03-08] MEDS ORDERED: IOHEXOL 300 MG/ML INFUS..BTL IJ ONE (21:38)
--- NOTE | 2017-03-08 21:59 | OP ---
DATE OF OPERATION: 03/08/2017 PREOPERATIVE DIAGNOSIS: Right ureteral calculus, right hydronephrosis urinary tract infection. POSTOPERATIVE DIAGNOSIS: Right ureteral calculus, right hydronephrosis urinary tract infection. PROCEDURE: Cystoscopy, right Double J stent insertion. SURGEON: Deni Perez M.D. FULL SERVICE VENDING DRIVER: None. ANESTHESIA: General via laryngeal mask. ANESTHESIOLOGIST: Destiny Couch D.O. SPECIMENS: None. CULTURES: None. DRAINS: 6 B[place]ud[place] 24 cm right Double J stent. ESTIMATED BLOOD LOSS: Negligible. COMPLICATIONS: None. DESCRIPTION OF PROCEDURE: Patient was brought into the operating room, placed on the operating table in the supine position. After administration of intravenous antibiotics, general anesthesia was administered via laryngeal mask, the patient was positioned in a dorsal lithotomy position. The vagina and perineum were prepped and draped in the usual sterile manner. The 22 B[place] cystoscope was inserted into the bladder wit the obturator in place. The obturator was removed, and urine was evacuated. A 30-degree telescope was inserted, and cystoscopy was performed. This demonstrated no foreign bodies, tumors, stones, inflammation. Both ureteral orifices were in the usual location with no efflux from right ureteral orifice. The right ureteral orifice was now cannulated with a 0.03 guidewire, which was advanced to the level of the right renal pelvis under fluoroscopic and direct visual guidance. The lumen catheter was inserted, retrograde pyelogram done demonstrating the wire was coiled in the right renal pelvis which was moderately distended. The lumen catheter was removed, and a 6 [place] 24 cm right Double J stent was inserted over the guidewire under direct visual and fluoroscopic guidance, leaving 1 coil in the renal pelvis and 1 coil in the bladder. She tolerated procedure well was awoken from anesthesia, instruments removed, and she was transferred to recovery room in stable condition. DENI PEREZ M.D. [id number]
[2017-03-08] MEDS ORDERED: ACETAMINOPHEN INJECTION 100 ML IVPB ONE (22:03)
[2017-03-08] MEDS ORDERED: ACETAMINOPHEN 1000 MG/100 ML VIAL (NON FORMULARY) IVPB ONE (22:06)
[2017-03-08] MEDS: GABAPENTIN 300 MG CAPSULE (FP) PO SCH (23:25)
[2017-03-09] MEDS ORDERED: PIPERACILLIN/TAZOB 3.375 GM 50 ML IVPB SCH (02:00)
[2017-03-09] MEDS: PIPERACILLIN/TAZOB 3.375 GM 3.375 GM in DEXTROSE 5%-WATER - 100 ML IVPB SCH ×3 (02:03→17:35)
[2017-03-09] MEDS: HYDROmorphone HCL CARPU-JECT 2 MG/1 ML DISP.SYRIN IVPB PRN ×2 (02:16→10:34)
[2017-03-09] MEDS: ONDANSETRON 4 MG/2 ML VIAL IVPUSH PRN ×2 (03:10→14:24)
[2017-03-09] MEDS ORDERED: PIPERACILLIN/TAZOB 3.375 GM 50 ML IVPB ONE ×2 (05:00→23:00)
[2017-03-09] MEDS: GABAPENTIN 300 MG CAPSULE (FP) PO SCH ×3 (06:22→21:29)
[2017-03-09] MEDS: HEPARIN NA (PORCINE) 5,000 UNITS/ML 1ML VIAL SQ SCH ×3 (06:22→21:28)
--- NOTE | 2017-03-09 06:40 | PN ---
Physical Exam: SUBJECTIVE: Patient seen and examined. Continues to have nausea, no vomiting or diarrhea. No fever or chills. continues to have RUQ/ R flank pain. OBJECTIVE: Vital Signs Period Temp Pulse Resp BP Sys/Jackson Pulse Ox Last 24 Hr 98.2 F-100.5 F 65-105 18-22 95-140/53-95 96-100 GENERAL: lying comfortably in bed, nad, aaox3 EYES: sclera anicteric, conjunctiva clear LUNGS: CTAB HEART: RRR, normal s1/s2, no m/r/g, (-) JVD ABDOMEN: soft, non-distended, ttp RLQ, no rebound or guarding, normoactive BS LOWER EXTREMITIES: 2+ DP pulses, wwp, no no calf tenderness. no edema. CBC, BMP 03/09/17 07:35 03/09/17 07:35 Hepatic Panel Total Bilirubin 0.9 mg/dL (0.2-1.0) 03/09/17 07:35 AST 19 U/L (15-37) 03/09/17 07:35 ALT 19 U/L (12-78) D 03/09/17 07:35 Alkaline Phosphatase 66 U/L (45-117) D 03/09/17 07:35 Albumin 3.0 g/dl (3.4-5.0) L D 03/09/17 07:35 Microbiology 03/08/17 16:00 Blood - Peripheral Venous Blood Culture - Preliminary NO GROWTH OBTAINED AFTER 24 HOURS, INCUBATION TO CONTINUE FOR 4 DAYS. 03/08/17 16:00 Blood - Peripheral Venous Blood Culture - Preliminary NO GROWTH OBTAINED AFTER 24 HOURS, INCUBATION TO CONTINUE FOR 4 DAYS. 03/08/17 15:03 Urine - Urine Clean Catch Urine Culture - Final Contaminated: Please Repeat Active Medications Acetaminophen (Tylenol -) 325 mg PO Q4H PRN PRN Reason: PAIN Last Admin: 03/09/17 21:28 Dose: 325 mg Fentanyl (Duragesic 50mcg Patch -) 1 patch TD Q72H [facility] Last Admin: 03/08/17 19:59 Dose: Not Given Gabapentin (Neurontin -) 300 mg PO TID [facility] Last Admin: 03/09/17 21:29 Dose: 300 mg Heparin Sodium (Porcine) (Heparin -) 5,000 unit SQ TID [facility] Last Admin: 03/09/17 21:28 Dose: 5,000 unit Piperacillin Sod/Tazobactam (Sod 3.375 gm/ Dextrose) 100 mls @ 200 mls/hr IVPB Q8H-IV [facility] Last Admin: 03/09/17 17:35 Dose: 200 mls/hr Miscellaneous (Duragesic Patch Waste) 1 each TD PRN PRN PRN Reason: PAIN Oxycodone HCl (Roxicodone -) 5 mg PO Q4H PRN PRN Reason: PAIN Last Admin: 03/09/17 21:29 Dose: 5 mg Promethazine HCl (Phenergan Injection -) 12.5 mg IVPB Q6H PRN PRN Reason: NAUSEA AND/OR VOMITING Last Admin: 03/09/17 21:27 Dose: 12.5 mg Tamsulosin HCl (Flomax -) 0.4 mg PO DAILY@0830 [facility] ASSESSMENT/PLAN: 46yo woman with PMH of recurrent UTIs, recurrent nephrolithiasis s/p multiple stent placements and lithotripsy, R renal papillary necrosis, pancreatitis s/p CCY and other medical problems who p/w acute onset of severe RUQ abdominal pain , R flank pain with n/v and found to be septic with large 10mm obstructing stone in distal R ureter. #Sepsis 2/2 UTI/pyelonephritis due to obstructing stone in R distal ureter, s/p R Stent placed yesterday; Stone not removed, will require OP lithotripsy -started on daily flomax per urology -ID consulted. Will continue Zosyn 3.375mg Q8H for empiric treatment -f/u urine and blood cultures -Pain meds: dilaudid d/c; patient refusing increase in fentanyl patch and toradol; will continue home fentanyl patch and Percocet 5-325mg Q4H PRN -Zofran and Phenergan PRN for nausea #SHELBY, resolved - d/c IVFs #chronic back pain -Continue home fentanyl patch and gabapentin. will hold hydrocodone for now. #FEN: PO hydration/ lytes wnl / Regular diet #DVT PPX - SCD's, encourage early ambulation #DISPO: anticipate d/c home in next 24-48hours FULL code d/w Dr. Nicolas Cotter MD PGY1 - Internal Medicine Visit type - Emergency Visit Emergency Visit: No - New Patient This patient is new to me today: No - Critical Care Critical Care patient: No
[2017-03-09 08:23] LABS: BASO % 0.3 % (0-2.0); HEMATOCRIT 34.9 % (32.4-45.2); HEMOGLOBIN 11.2 GM/dL (10.7-15.3); LYMPH % 10.6 % (8-40); MEAN CELL VOLUME 87.5 fl (80-96); MEAN PLT VOLUME 7.6 fl (7.5-11.1); MONO % 3.4 % (3.8-10.2); NEUT % 85.7 % (42.8-82.8); PLATELET COUNT 345 K/MM3 (134-434); RBC 3.98 M/mm3 (3.60-5.2); RDW 16.1 % (11.6-15.6); WHITE BLOOD COUNT 10.6 K/mm3 (4.0-10.0)
[2017-03-09] MEDS: SODIUM CHLORIDE 1,000 ML IV SCH (08:36)
--- NOTE | 2017-03-09 08:49 | PN ---
Progress Note (short form) - Note Progress Note: Anesthesia Post Op Pt seen and examined S:alert and awake,c/o pain and nausea O: Vital Signs Temperature 98.4 F 03/09/17 08:23 Pulse Rate 102 H 03/09/17 08:23 Respiratory Rate 20 03/09/17 08:23 Blood Pressure 128/61 03/09/17 08:23 O2 Sat by Pulse Oximetry (%) 96 03/08/17 23:42 CBC, BMP 03/09/17 07:35 A/P; Current Active Problems Hydronephrosis (Acute) Leukocytosis (Acute) Ureteral calculus (Acute) s/p cysto doing well post op control pain. Continue current care Angel Rodriguez MD
[2017-03-09 09:01] LABS: ANION GAP 9 (8-16); BLOOD UREA NITROGEN 7 mg/dL (7-18); CALCIUM 7.6 mg/dL (8.5-10.1); CHLORIDE 112 mmol/L (98-107); CO2 20 mmol/L (21-32); CREATININE 0.7 mg/dL (0.55-1.02); GLUCOSE,RANDOM 108 mg/dL (74-106); POTASSIUM 4.1 mmol/L (3.5-5.1); SGOT/AST 19 U/L (15-37); SGPT/ALT 19 U/L (12-78); SODIUM 141 mmol/L (136-145)
[2017-03-09 09:03] LABS: ALK PHOS 66 U/L (45-117); BILIRUBIN,TOTAL 0.9 mg/dL (0.2-1.0)
--- NOTE | 2017-03-09 09:16 | PN ---
Progress Note (short form) - Note Progress Note: ID Consult dictated Obstructing R ureteral nephrolith s/p cysto/ stent Recurrent UTI Leukocytosis- improved Lactic acidosis- resolved Multiple antibiotic allergies Await c/s Continue zosyn
--- NOTE | 2017-03-09 10:19 | CONS ---
INFECTIOUS DISEASE CONSULTATION DATE OF CONSULTATION: DATE OF DICTATION: 03/09/2017 HISTORY OF PRESENT ILLNESS: A 46-year-old female with a history of recurrent nephrolithiasis, history of obstructive uropathies in the past requiring percutaneous nephrostomy tubes and ureteral stents, now evaluated for recurrent obstructive nephrolithiasis and sepsis. She presented to the hospital on March 08, 2017, with complaints of abdominal pain, nausea, vomiting. She describes pain in the epigastric area as well as the periumbilical area, associated with nausea and non-bilious vomiting. She denied any dysuria or hematuria. A CAT scan of the abdomen and pelvis showed a stone at the right UV junction with resultant hydronephrosis. Cultures were obtained, and she was empirically treated with Zosyn. She was taken to the operating room last night, where a cystoscopy and right ureteral stent placement was done. Her course was complicated by fever, elevated white blood cell count, lactic acidosis, tachycardia. Patient reports having multiple episodes of nephrolithiasis, had been hospitalized at [facility] earlier this year with a pseudomonas urinary tract infection. She has a history of MULTIPLE ANTIBIOTIC ALLERGIES. At the present time, she is awake and alert. She complains of right mid abdominal pain and nausea. PAST MEDICAL HISTORY: Positive for recurrent nephrolithiasis with obstructive uropathy, history of recurrent urinary tract infections, Baastrup syndrome, a history of pancreatitis, diverticulitis, and DVT. PAST SURGICAL HISTORY: Status post cholecystectomy, appendectomy, history of nephrostomies, and ureteral stents. ALLERGIES: LIDOCAINE, VANCOMYCIN (hives), GENTAMICIN (GI upset), MORPHINE, NONSTEROIDALS, and LEVAQUIN (tendinitis). LABORATORY DATA: White count on admission 21,000, presently 10.6; hematocrit 34.9; platelet count 345. BUN 7, creatinine 0.7. Urinalysis: White cells 1. Cultures pending. Lactic acid 2.3. PHYSICAL EXAMINATION: General: She is awake. She is in moderate distress secondary to abdominal pain and nausea. Vital Signs: Temperature 98.4, T-max 100.5; blood pressure 128/61; pulse 102; respirations 20 per minute. HEENT: Sclerae are anicteric. Heart: Sounds S1, S2. Lungs: Clear. Abdomen: Soft. There is right upper quadrant and periumbilical tenderness. There is right CVA tenderness to palpation. Extremities: Positive for edema. IMPRESSION: 1. Obstructing right ureteral stone status post cystoscopy and stent placement. 2. Fever, leukocytosis, lactic acidosis; possible sepsis secondary to urinary tract focus. 3. History of MULTIPLE ANTIBIOTIC ALLERGIES. 4. History of positive urine culture, pseudomonas. RECOMMENDATIONS: Await culture results, empiric antibiotic coverage with Zosyn 3.375 g IV piggyback every 8 hours, urology followup. Will follow. Thank you for the kind referral. BONNIE MARQUES M.D. [id number]
[2017-03-09] MEDS ORDERED: FENTANYL PATCH WASTE TD PRN (12:44)
[2017-03-09] MEDS ORDERED: fentaNYL 12mcg/hr PATCH.TD72 TD SCH (12:45)
[2017-03-09] MEDS ORDERED: KETOROLAC TROMETHAMINE 30 MG/1 ML VIAL IVPUSH ONE (13:28)
[2017-03-09] MEDS ORDERED: PT OWN MED DRAWER 7, Y5N ONE ×2 (17:23→22:48)
--- NOTE | 2017-03-09 19:29 | PN ---
Teaching Attending Note Name of Resident: Sharonda Cotter ATTENDING PHYSICIAN STATEMENT I saw and evaluated the patient. I reviewed the resident's note and discussed the case with the resident. I agree with the resident's findings and plan as documented. SUBJECTIVE: No fever or chills. complains of pain in RLQ. no vomiting , but a little nauseous OBJECTIVE: AAOx3. comfortable in bed HEENT:MMM CV: RRR, no MRG Lungs : CTAB Ext : no edema or erythema Abd: soft, TTP in RLQ, no rebound tenderness or guarding ASSESSMENT AND PLAN: 6 y/o lady with h/o nephrolithiasis, diverticulitis , pancreatitis , s/p CCY, chronic back pain due to herniated disks and spinal stenosis , R renal papillary necrosis , h/o pseudomonas UTI, Helicobacter pylori, mastoiditis and other medical problems who presented with R upper abd pain, she was found to be septic with an obstructing R distal ureteral stone . 1- Sepsis 2/2 complicated UTI/pyelonephritis from an obstructing R distal ureteral stone with hydronephrosis. S/p stent placement. stone was not removed. - cont zosyn - repeat urine cx to r/o resistant organism - follow blood cx - for pain : dc dilaudid. pt was offered increasing fentanyl patch dose and adding toradol, she refused . will cont with oxycodone + her home dose fentanyl patch 2- SHELBY: due to volume depletion and obstruction - resolved - dc IVF 3- H/o chronic back pain: - cont fentayl patch - cont neurontin, - oxycodone PRN while here only . she follows with a pain management doctor 5-H/o CP; need stress test as out pt 6- DVT PX
[2017-03-09] MEDS: PROMETHAZINE HCL 25 MG/1 ML VIAL IVPB PRN (21:27)
[2017-03-09] MEDS: ACETAMINOPHEN 325 MG TABLET (FP) PO PRN (21:28)
[2017-03-09] MEDS: oxyCODONE HCL 5 MG TABLET PO PRN (21:29)
[2017-03-09] MEDS ORDERED: MELATONIN 5 MG TABLETS PO ONE (22:45)
[2017-03-10] MEDS: PIPERACILLIN/TAZOB 3.375 GM 3.375 GM in DEXTROSE 5%-WATER - 100 ML IVPB SCH ×3 (01:38→18:28)
[2017-03-10] MEDS: HEPARIN NA (PORCINE) 5,000 UNITS/ML 1ML VIAL SQ SCH ×3 (05:33→21:03)
[2017-03-10] MEDS: GABAPENTIN 300 MG CAPSULE (FP) PO SCH ×3 (05:33→21:03)
[2017-03-10] MEDS: PROMETHAZINE HCL 25 MG/1 ML VIAL IVPB PRN ×3 (05:44→20:25)
[2017-03-10] MEDS: ACETAMINOPHEN 325 MG TABLET (FP) PO PRN ×3 (05:52→20:26)
[2017-03-10] MEDS: oxyCODONE HCL 5 MG TABLET PO PRN ×3 (05:52→20:26)
[2017-03-10] MEDS: TAMSULOSIN HCL 0.4 MG CAP.ER.24H (FP) PO SCH (08:10)
[2017-03-10] MEDS ORDERED: PT OWN MED DRAWER 7, Y5N ONE ×2 (09:28→18:06)
[2017-03-10 09:37] LABS: HEMATOCRIT 35.5 % (32.4-45.2); HEMOGLOBIN 11.5 GM/dL (10.7-15.3); MCH 28.4 pg (25.7-33.7); MCHC 32.3 g/dl (32.0-36.0); MEAN CELL VOLUME 87.8 fl (80-96); PLATELET COUNT 338 K/MM3 (134-434); RBC 4.05 M/mm3 (3.60-5.2); RDW 15.9 % (11.6-15.6); WHITE BLOOD COUNT 9.8 K/mm3 (4.0-10.0)
[2017-03-10 09:57] LABS: ANION GAP 11 (8-16); BLOOD UREA NITROGEN 6 mg/dL (7-18); CALCIUM 8.7 mg/dL (8.5-10.1); CHLORIDE 108 mmol/L (98-107); CO2 23 mmol/L (21-32); CREATININE 0.8 mg/dL (0.55-1.02); GLUCOSE,RANDOM 130 mg/dL (74-106); POTASSIUM 3.4 mmol/L (3.5-5.1); SODIUM 142 mmol/L (136-145)
--- NOTE | 2017-03-10 10:22 | PN ---
Progress Note, Physician History of Present Illness: C/O R sided abdominal pain and R flank pain + Urinary frequency No c/o dysuria/ hematuria Temps, WBC improved BC no growth Repeat urine c/s pending - Current Medication List Current Medications: Active Medications Acetaminophen (Tylenol -) 325 mg PO Q4H PRN PRN Reason: PAIN Last Admin: 03/10/17 05:52 Dose: 325 mg Fentanyl (Duragesic 50mcg Patch -) 1 patch TD Q72H [facility] Last Admin: 03/08/17 19:59 Dose: Not Given Gabapentin (Neurontin -) 300 mg PO TID [facility] Last Admin: 03/10/17 05:33 Dose: 300 mg Heparin Sodium (Porcine) (Heparin -) 5,000 unit SQ TID [facility] Last Admin: 03/10/17 05:33 Dose: 5,000 unit Piperacillin Sod/Tazobactam (Sod 3.375 gm/ Dextrose) 100 mls @ 200 mls/hr IVPB Q8H-IV [facility] Last Admin: 03/10/17 09:35 Dose: 200 mls/hr Miscellaneous (Duragesic Patch Waste) 1 each TD PRN PRN PRN Reason: PAIN Oxycodone HCl (Roxicodone -) 5 mg PO Q4H PRN PRN Reason: PAIN Last Admin: 03/10/17 05:52 Dose: 5 mg Promethazine HCl (Phenergan Injection -) 12.5 mg IVPB Q6H PRN PRN Reason: NAUSEA AND/OR VOMITING Last Admin: 03/10/17 05:44 Dose: 12.5 mg Tamsulosin HCl (Flomax -) 0.4 mg PO DAILY@0830 [facility] Last Admin: 03/10/17 08:10 Dose: 0.4 mg - Objective Vital Signs: Vital Signs Temperature 98.6 F 03/10/17 08:00 Pulse Rate 88 03/10/17 08:00 Respiratory Rate 18 03/10/17 08:00 Blood Pressure 112/70 03/10/17 08:00 O2 Sat by Pulse Oximetry (%) 97 03/10/17 08:51 Constitutional: Yes: No Distress Eyes: Yes: Conjunctiva Clear Cardiovascular: Yes: Regular Rate and Rhythm, S1 Respiratory: Yes: CTA Bilaterally Gastrointestinal: Yes: Normal Bowel Sounds, Soft, Tenderness, Other (R mid abdominal tenderness) Genitourinary: Yes: CVA Tenderness - Right Edema: No Labs: CBC, BMP 03/10/17 09:14 03/10/17 09:14 INR, PTT INR 0.97 (0.82-1.09) 03/08/17 16:00 Assessment/Plan Nephrolithiasis/ obstructive uropathy s/p cysto/ ureteral stent Recurrent UTIs Fever/ leukocytosis Multiple antibiotic allergies Check repeat urine c/s--> switch to po ?Augmentin ( multiple antibiotic allergies)
--- NOTE | 2017-03-10 13:21 | EKG ---
Test Reason : Blood Pressure : / mmHG Vent. Rate : 097 BPM Atrial Rate : 097 BPM P-R Int : 138 ms QRS Dur : 070 ms QT Int : 370 ms P-R-T Axes : 073 052 048 degrees QTc Int : 469 ms NORMAL SINUS RHYTHM NORMAL ECG WHEN COMPARED WITH ECG OF 05-OCT-2015 15:42, NO SIGNIFICANT CHANGE WAS FOUND Confirmed by LUKE AKHTAR MD ([id number]) on 03/10/2017 1:21:47 PM Referred By: Confirmed By:LUKE AKHTAR MD
[2017-03-10] MEDS ORDERED: POTASSIUM CHLORIDE ORAL LIQUID 20 MEQ/15 ML PO ONE (13:51)
--- NOTE | 2017-03-10 14:14 | PN ---
Physical Exam: SUBJECTIVE: Patient seen and examined. Continues to have R abdominal and flank pain. Some discomfort when voiding. No fever or chills. No vomiting. OBJECTIVE: Vital Signs Period Temp Pulse Resp BP Sys/Jackson Pulse Ox Last 24 Hr 97.9 F-98.6 F 84-88 18-20 112-121/70-80 97-98 GENERAL: nad, aaox3 EYES: sclera anicteric, conjunctiva clear LUNGS: CTAB HEART: RRR, normal s1/s2, no m/r/g, (-) JVD ABDOMEN: soft, non-distended, mild RUQ ttp, no rebound or guarding, normoactive BS : R CVA tenderness, no suprapubic ttp LOWER EXTREMITIES: 2+ DP pulses, wwp, no no calf tenderness. no edema. CBC, BMP 03/10/17 09:14 03/10/17 09:14 Hepatic Panel Total Bilirubin 0.9 mg/dL (0.2-1.0) 03/09/17 07:35 AST 19 U/L (15-37) 03/09/17 07:35 ALT 19 U/L (12-78) D 03/09/17 07:35 Alkaline Phosphatase 66 U/L (45-117) D 03/09/17 07:35 Albumin 3.0 g/dl (3.4-5.0) L D 03/09/17 07:35 Microbiology 03/08/17 16:00 Blood - Peripheral Venous Blood Culture - Preliminary NO GROWTH OBTAINED AFTER 24 HOURS, INCUBATION TO CONTINUE FOR 4 DAYS. 03/08/17 16:00 Blood - Peripheral Venous Blood Culture - Preliminary NO GROWTH OBTAINED AFTER 24 HOURS, INCUBATION TO CONTINUE FOR 4 DAYS. 03/08/17 15:03 Urine - Urine Clean Catch Urine Culture - Final Contaminated: Please Repeat Active Medications Acetaminophen (Tylenol -) 325 mg PO Q4H PRN PRN Reason: PAIN Last Admin: 03/10/17 13:00 Dose: 325 mg Fentanyl (Duragesic 50mcg Patch -) 1 patch TD Q72H [facility] Last Admin: 03/08/17 19:59 Dose: Not Given Gabapentin (Neurontin -) 300 mg PO TID [facility] Last Admin: 03/10/17 05:33 Dose: 300 mg Heparin Sodium (Porcine) (Heparin -) 5,000 unit SQ TID [facility] Last Admin: 03/10/17 05:33 Dose: 5,000 unit Piperacillin Sod/Tazobactam (Sod 3.375 gm/ Dextrose) 100 mls @ 200 mls/hr IVPB Q8H-IV [facility] Last Admin: 03/10/17 09:35 Dose: 200 mls/hr Miscellaneous (Duragesic Patch Waste) 1 each TD PRN PRN PRN Reason: PAIN Oxycodone HCl (Roxicodone -) 5 mg PO Q4H PRN PRN Reason: PAIN Last Admin: 03/10/17 13:01 Dose: 5 mg Potassium Chloride (Potassium Chloride Oral Liquid) 40 meq PO ONCE ONE Stop: 03/10/17 13:52 Promethazine HCl (Phenergan Injection -) 12.5 mg IVPB Q6H PRN PRN Reason: NAUSEA AND/OR VOMITING Last Admin: 03/10/17 11:49 Dose: 12.5 mg Tamsulosin HCl (Flomax -) 0.4 mg PO DAILY@0830 [facility] Last Admin: 03/10/17 08:10 Dose: 0.4 mg ASSESSMENT/PLAN: 46yo woman with PMH of recurrent UTIs, recurrent nephrolithiasis s/p multiple stent placements and lithotripsy, R renal papillary necrosis, pancreatitis s/p CCY and other medical problems who p/w acute onset of severe RUQ abdominal pain , R flank pain with n/v and found to be septic with large 10mm obstructing stone in distal R ureter. #Sepsis 2/2 UTI/pyelonephritis due to obstructing stone in R distal ureter, s/p R Stent placed 03/08; Stone not removed, will require OP lithotripsy -Continue daily flomax per urology -ID consulted. Continue Zosyn 3.375mg Q8H for empiric treatment - Day 3, will switch to PO after urine c/s results -Repeat UCx pending to r/o resistant organism -Pain control with Percocet 5-325 q4h prn and home fentanyl patch -Zofran and Phenergan PRN for nausea #SHELBY, resolved - d/c IVFs #chronic back pain -Continue home fentanyl patch and gabapentin. will hold hydrocodone for now. #FEN: PO hydration/ hypoK - repleting with 40mEq KCl PO/ Regular diet #DVT PPX - SCD's, encourage early ambulation #DISPO: anticipate d/c in next 24-48hours FULL code d/w Dr. Eva Cotter MD PGY1 - Internal Medicine Visit type - Emergency Visit Emergency Visit: No - New Patient This patient is new to me today: No - Critical Care Critical Care patient: No
--- NOTE | 2017-03-10 16:56 | PN ---
Teaching Attending Note Name of Resident: Sharonda Cotter ATTENDING PHYSICIAN STATEMENT I saw and evaluated the patient. I reviewed the resident's note and discussed the case with the resident. I agree with the resident's findings and plan as documented. SUBJECTIVE: Patient feels better post stent. No fever or chills, no shortness of breath. OBJECTIVE: Vital Signs Temperature 99.3 F 03/10/17 15:13 Pulse Rate 91 H 03/10/17 15:13 Respiratory Rate 18 03/10/17 08:00 Blood Pressure 104/60 03/10/17 15:13 O2 Sat by Pulse Oximetry (%) 97 03/10/17 08:51 CBCD WBC 9.8 K/mm3 (4.0-10.0) 03/10/17 09:14 RBC 4.05 M/mm3 (3.60-5.2) 03/10/17 09:14 Hgb 11.5 GM/dL (10.7-15.3) 03/10/17 09:14 Hct 35.5 % (32.4-45.2) 03/10/17 09:14 MCV 87.8 fl (80-96) 03/10/17 09:14 MCHC 32.3 g/dl (32.0-36.0) 03/10/17 09:14 RDW 15.9 % (11.6-15.6) H 03/10/17 09:14 Plt Count 338 K/MM3 (134-434) 03/10/17 09:14 MPV 8.0 fl (7.5-11.1) 03/10/17 09:14 CMP Sodium 142 mmol/L (136-145) 03/10/17 09:14 Potassium 3.4 mmol/L (3.5-5.1) L 03/10/17 09:14 Chloride 108 mmol/L (98-107) H 03/10/17 09:14 Carbon Dioxide 23 mmol/L (21-32) 03/10/17 09:14 Anion Gap 11 (8-16) 03/10/17 09:14 BUN 6 mg/dL (7-18) L 03/10/17 09:14 Creatinine 0.8 mg/dL (0.55-1.02) 03/10/17 09:14 Creat Clearance w eGFR > 60 (>60) 03/09/17 07:35 Random Glucose 130 mg/dL (74-106) H D 03/10/17 09:14 Calcium 8.7 mg/dL (8.5-10.1) 03/10/17 09:14 Total Bilirubin 0.9 mg/dL (0.2-1.0) 03/09/17 07:35 AST 19 U/L (15-37) 03/09/17 07:35 ALT 19 U/L (12-78) D 03/09/17 07:35 Alkaline Phosphatase 66 U/L (45-117) D 03/09/17 07:35 Total Protein 6.0 g/dl (6.4-8.2) L D 03/09/17 07:35 Albumin 3.0 g/dl (3.4-5.0) L D 03/09/17 07:35 Current Medications Generic Name Dose Route Start Last Admin Trade Name Freq PRN Reason Stop Dose Admin Acetaminophen 325 mg 03/09/17 18:59 03/10/17 13:00 Tylenol - PO 325 mg Q4H PRN Administration PAIN Fentanyl 1 patch 03/08/17 19:30 03/08/17 19:59 Duragesic 50mcg Patch - TD Not Given Q72H JACQUELYN Gabapentin 300 mg 03/08/17 22:00 03/10/17 14:57 Neurontin - PO 300 mg TID JACQUELYN Administration Heparin Sodium (Porcine) 5,000 unit 03/09/17 07:00 03/10/17 14:56 Heparin - SQ 5,000 unit TID JACQUELYN Administration Piperacillin Sod/Tazobactam 100 mls @ 200 mls/hr 03/08/17 19:30 03/10/17 09: 35 Sod 3.375 gm/ Dextrose IVPB 200 mls/hr Q8H-IV JACQUELYN Administration Miscellaneous 1 each 03/09/17 12:44 Duragesic Patch Waste TD PRN PRN PAIN Oxycodone HCl 5 mg 03/09/17 19:00 03/10/17 13:01 Roxicodone - PO 5 mg Q4H PRN Administration PAIN Promethazine HCl 12.5 mg 03/08/17 19:00 03/10/17 11:49 Phenergan Injection - IVPB 12.5 mg Q6H PRN Administration NAUSEA AND/OR VOMITING Tamsulosin HCl 0.4 mg 03/10/17 08:30 03/10/17 08:10 Flomax - PO 0.4 mg DAILY@0830 [facility] Administration Home Medications Medication Instructions Recorded FENTANYL 50mcg PATCH [DURAGESIC 50 1 each TD Q72H #10 patch.td72 07/16/14 mcg PATCH -] Cyclobenzaprine HCl [Flexeril -] 10 mg PO TID 10/05/15 Gabapentin 300 mg PO TID 10/05/15 Hydrocodone/Acetaminophen [Lorcet 1 each PO PRN PRN 12/11/16 5-325 mg Tablet] Tramadol HCl 50 mg PO Q6H PRN #12 tablet MDD 4 12/11/16 PE: per resident's note ASSESSMENT AND PLAN: Patient is a 46 y/o lady with PMHx of nephrolithiasis, pseudomonas UTI, diverticulitis , pancreatitis , s/p CCY, chronic back pain due to herniated disks and spinal stenosis , R renal papillary necrosis , Helicobacter pylori, mastoiditis who presented with abdominal pain and was found to be septic with an obstructing Right distal ureteral stone . # S/p Sepsis due to a complicated UTI/pyelonephritis/ obstructive uropathy s/p cysto and ureteral stent placement, due to having an obstructing Right distal ureteral stone with hydronephrosis s/p stent placement by urologist Dr.Janice Cheema but stone was not removed hence needs Lithotripsy , will have it as an outpatient. On IV zosyn , ID on the case, follow Urine and Blood Cx. Patient has multiple antibiotic allergies. As per ID can go home with Augmentin, follow repeat urine cx. result. Continue Oxycodone, patient keeps asking for Dilaudid since was discontinued . On Flomax continue. # SHELBY: due to dehydration s/p IVF , resolved #H/o chronic back pain: on Fentayl patch , neurontin, oxycodone PRN while here only . Follow with her own pain management doctor upon discharge. # H/o CP; need stress test as out pt DVT PX: Heparin sq
[2017-03-10] MEDS ORDERED: MELATONIN 5 MG TABLETS PO PRN (23:43)
[2017-03-10 23:51] LABS: URINE APPEARANCE CLOUDY; URINE BILIRUBIN NEGATIVE (NEGATIVE); URINE BLOOD 3+ (NEGATIVE); URINE COLOR LTYELLOW; URINE GLUCOSE (UA) NEGATIVE (NEGATIVE); URINE KETONE NEGATIVE (NEGATIVE); URINE NITRITE NEGATIVE (NEGATIVE); URINE PROTEIN 1+ (NEGATIVE); URINE UROBILINOGEN NEGATIVE mg/dL (0.2-1.0)
[2017-03-10 23:52] LABS: URINE LEUK ESTERASE 3+ (NEGATIVE)
[2017-03-11 01:20] LABS: EPI CELLS MANY /HPF (FEW); URINE MUCUS RARE
[2017-03-11] MEDS: PIPERACILLIN/TAZOB 3.375 GM 3.375 GM in DEXTROSE 5%-WATER - 100 ML IVPB SCH ×2 (02:53→09:43)
[2017-03-11] MEDS: PROMETHAZINE HCL 25 MG/1 ML VIAL IVPB PRN (03:11)
[2017-03-11] MEDS: oxyCODONE HCL 5 MG TABLET PO PRN ×2 (03:12→14:54)
[2017-03-11] MEDS: ACETAMINOPHEN 325 MG TABLET (FP) PO PRN (03:12)
[2017-03-11] MEDS: HEPARIN NA (PORCINE) 5,000 UNITS/ML 1ML VIAL SQ SCH ×3 (05:58→21:10)
[2017-03-11] MEDS: GABAPENTIN 300 MG CAPSULE (FP) PO SCH ×3 (05:58→21:10)
[2017-03-11 08:40] LABS: HEMATOCRIT 35.5 % (32.4-45.2); HEMOGLOBIN 11.4 GM/dL (10.7-15.3); MCH 28.4 pg (25.7-33.7); MCHC 32.2 g/dl (32.0-36.0); MEAN CELL VOLUME 88.3 fl (80-96); MEAN PLT VOLUME 7.8 fl (7.5-11.1); PLATELET COUNT 336 K/MM3 (134-434); RBC 4.02 M/mm3 (3.60-5.2); RDW 15.9 % (11.6-15.6); WHITE BLOOD COUNT 8.9 K/mm3 (4.0-10.0)
[2017-03-11 09:09] LABS: ANION GAP 5 (8-16); BLOOD UREA NITROGEN 10 mg/dL (7-18); CALCIUM 8.6 mg/dL (8.5-10.1); CHLORIDE 109 mmol/L (98-107); CO2 27 mmol/L (21-32); CREATININE 0.6 mg/dL (0.55-1.02); GLUCOSE,RANDOM 84 mg/dL (74-106); MAGNESIUM 1.8 mg/dL (1.8-2.4); POTASSIUM 4.1 mmol/L (3.5-5.1); SODIUM 141 mmol/L (136-145)
[2017-03-11] MEDS ORDERED: PT OWN MED DRAWER 7, Y5N ONE (09:41)
[2017-03-11] MEDS: TAMSULOSIN HCL 0.4 MG CAP.ER.24H (FP) PO SCH (09:43)
--- NOTE | 2017-03-11 10:27 | PN ---
Progress Note, Physician History of Present Illness: Less R sided abdominal pain and R flank pain C/O suprapubic pressure + Urinary frequency No c/o dysuria/ hematuria Temps, WBC improved BC no growth Repeat urine c/s no growth - Current Medication List Current Medications: Active Medications Acetaminophen (Tylenol -) 325 mg PO Q4H PRN PRN Reason: PAIN Last Admin: 03/11/17 03:12 Dose: 325 mg Fentanyl (Duragesic 50mcg Patch -) 1 patch TD Q72H [facility] Last Admin: 03/08/17 19:59 Dose: Not Given Gabapentin (Neurontin -) 300 mg PO TID [facility] Last Admin: 03/11/17 05:58 Dose: 300 mg Heparin Sodium (Porcine) (Heparin -) 5,000 unit SQ TID [facility] Last Admin: 03/11/17 05:58 Dose: 5,000 unit Piperacillin Sod/Tazobactam (Sod 3.375 gm/ Dextrose) 100 mls @ 200 mls/hr IVPB Q8H-IV [facility] Last Admin: 03/11/17 09:43 Dose: 200 mls/hr Melatonin (Melatonin) 5 mg PO HS PRN PRN Reason: INSOMNIA Last Admin: 03/11/17 00:24 Dose: 5 mg Miscellaneous (Duragesic Patch Waste) 1 each TD PRN PRN PRN Reason: PAIN Oxycodone HCl (Roxicodone -) 5 mg PO Q4H PRN PRN Reason: PAIN Last Admin: 03/11/17 03:12 Dose: 5 mg Promethazine HCl (Phenergan Injection -) 12.5 mg IVPB Q6H PRN PRN Reason: NAUSEA AND/OR VOMITING Last Admin: 03/11/17 03:11 Dose: 12.5 mg Tamsulosin HCl (Flomax -) 0.4 mg PO DAILY@0830 [facility] Last Admin: 03/11/17 09:43 Dose: 0.4 mg - Objective Vital Signs: Vital Signs Temperature 99.0 F 03/11/17 08:37 Pulse Rate 90 03/11/17 08:37 Respiratory Rate 18 03/11/17 08:37 Blood Pressure 120/65 03/11/17 08:37 O2 Sat by Pulse Oximetry (%) 98 03/11/17 08:47 Constitutional: Yes: No Distress Eyes: Yes: Conjunctiva Clear Cardiovascular: Yes: Regular Rate and Rhythm, S1, S2 Respiratory: Yes: CTA Bilaterally Gastrointestinal: Yes: Normal Bowel Sounds, Soft, Tenderness, Other (mild R sided abdominal tenderness) Edema: No Labs: CBC, BMP 03/11/17 08:10 INR, PTT INR 0.97 (0.82-1.09) 03/08/17 16:00 Assessment/Plan Nephrolithiasis/ obstructive uropathy s/p cysto/ ureteral stent Recurrent UTIs Fever/ leukocytosis resolved Multiple antibiotic allergies switch to po Augmentin x 3d
[2017-03-11] MEDS ORDERED: ONDANSETRON 4 MG TABLET PO ONE ×2 (14:16→23:45)
--- NOTE | 2017-03-11 15:08 | PN ---
Physical Exam: SUBJECTIVE: Patient seen and examined. No fever or chill. Tolerating diet and voiding well. C/o discomfort when urinating due to stent. R abdominal/flank pain improved. OBJECTIVE: Vital Signs Period Temp Pulse Resp BP Sys/Jackson Pulse Ox Last 24 Hr 98.6 F-99.9 F 75-93 18-20 104-131/60-80 98-98 GENERAL: nad, aaox3 EYES: sclera anicteric, conjunctiva clear LUNGS: CTAB HEART: RRR, normal s1/s2, no m/r/g, (-) JVD ABDOMEN: soft, ntnd, mild discomfort in RUQ and R flank LOWER EXTREMITIES: 2+ DP pulses, wwp, no no calf tenderness. no edema. CBC, BMP 03/11/17 08:10 03/11/17 08:10 Hepatic Panel Total Bilirubin 0.9 mg/dL (0.2-1.0) 03/09/17 07:35 AST 19 U/L (15-37) 03/09/17 07:35 ALT 19 U/L (12-78) D 03/09/17 07:35 Alkaline Phosphatase 66 U/L (45-117) D 03/09/17 07:35 Albumin 3.0 g/dl (3.4-5.0) L D 03/09/17 07:35 Microbiology 03/09/17 16:45 Urine - Urine Clean Catch Urine Culture - Final NO GROWTH OBTAINED 03/08/17 16:00 Blood - Peripheral Venous Blood Culture - Preliminary NO GROWTH OBTAINED AFTER 48 HOURS, INCUBATION TO CONTINUE FOR 3 DAYS. 03/08/17 16:00 Blood - Peripheral Venous Blood Culture - Preliminary NO GROWTH OBTAINED AFTER 48 HOURS, INCUBATION TO CONTINUE FOR 3 DAYS. 03/08/17 15:03 Urine - Urine Clean Catch Urine Culture - Final Contaminated: Please Repeat Active Medications Acetaminophen (Tylenol -) 325 mg PO Q4H PRN PRN Reason: PAIN Last Admin: 03/11/17 03:12 Dose: 325 mg Amoxicillin/Clavulanate Potassium (Augmentin - 875mg Tablet) 1 tab PO BID@0800, 1730 [facility] Fentanyl (Duragesic 50mcg Patch -) 1 patch TD Q72H [facility] Last Admin: 03/08/17 19:59 Dose: Not Given Gabapentin (Neurontin -) 300 mg PO TID [facility] Last Admin: 03/11/17 14:15 Dose: 300 mg Heparin Sodium (Porcine) (Heparin -) 5,000 unit SQ TID [facility] Last Admin: 03/11/17 14:15 Dose: 5,000 unit Melatonin (Melatonin) 5 mg PO HS PRN PRN Reason: INSOMNIA Last Admin: 03/11/17 00:24 Dose: 5 mg Miscellaneous (Duragesic Patch Waste) 1 each TD PRN PRN PRN Reason: PAIN Oxycodone HCl (Roxicodone -) 5 mg PO Q4H PRN PRN Reason: PAIN Last Admin: 03/11/17 14:54 Dose: 5 mg Promethazine HCl (Phenergan Injection -) 12.5 mg IVPB Q6H PRN PRN Reason: NAUSEA AND/OR VOMITING Last Admin: 03/11/17 03:11 Dose: 12.5 mg Tamsulosin HCl (Flomax -) 0.4 mg PO DAILY@0830 [facility] Last Admin: 03/11/17 09:43 Dose: 0.4 mg ASSESSMENT/PLAN: 46yo woman with PMH of recurrent UTIs, recurrent nephrolithiasis s/p multiple stent placements and lithotripsy, R renal papillary necrosis, pancreatitis s/p CCY and other medical problems who p/w acute onset of severe RUQ abdominal pain , R flank pain with n/v and found to be septic with large 10mm obstructing stone in distal R ureter. #Sepsis, resolved, repeat urine cultures negative 2/2 UTI/pyelonephritis due to obstructing stone in R distal ureter, s/p R Stent placed 03/08; Stone not removed, will require OP lithotripsy -Continue daily flomax per urology -ID consulted. Treated with 3days Zosyn. Switched to Augmentin PO today, continue for 3 days total -Pain control with Percocet 5-325 q4h prn and home fentanyl patch -Zofran and Phenergan PRN for nausea #SHELBY, resolved - d/c IVFs #chronic back pain -Continue home fentanyl patch and gabapentin. will hold hydrocodone for now. #FEN: PO hydration/ lytes wnl / Regular diet #DVT PPX - SCD's, encourage early ambulation #DISPO: can be discharged home within next 24hours FULL code d/w Dr. Eva Cotter MD PGY1 - Internal Medicine Visit type - Emergency Visit Emergency Visit: No - New Patient This patient is new to me today: No - Critical Care Critical Care patient: No - Discharge Referral Referred to [facility] No
[2017-03-11] MEDS: AMOX TR/POT CLAV 875MG/125MG TABLETS (FP) PO SCH (17:32)
[2017-03-11] MEDS: fentaNYL 50mcg/hr PATCH.TD72 TD SCH (19:31)
--- NOTE | 2017-03-11 20:14 | PN ---
Teaching Attending Note Name of Resident: Sharonda Cotter ATTENDING PHYSICIAN STATEMENT I saw and evaluated the patient. I reviewed the resident's note and discussed the case with the resident. I agree with the resident's findings and plan as documented. SUBJECTIVE: Patient is feeling better , tolerating diet well, decreased abdominal pain without having any urinary difficulty. OBJECTIVE: Vital Signs Temperature 99.9 F H 03/11/17 14:17 Pulse Rate 93 H 03/11/17 14:17 Respiratory Rate 18 03/11/17 08:37 Blood Pressure 124/75 03/11/17 14:17 O2 Sat by Pulse Oximetry (%) 98 03/11/17 08:47 CBCD WBC 8.9 K/mm3 (4.0-10.0) 03/11/17 08:10 RBC 4.02 M/mm3 (3.60-5.2) 03/11/17 08:10 Hgb 11.4 GM/dL (10.7-15.3) 03/11/17 08:10 Hct 35.5 % (32.4-45.2) 03/11/17 08:10 MCV 88.3 fl (80-96) 03/11/17 08:10 MCHC 32.2 g/dl (32.0-36.0) 03/11/17 08:10 RDW 15.9 % (11.6-15.6) H 03/11/17 08:10 Plt Count 336 K/MM3 (134-434) 03/11/17 08:10 MPV 7.8 fl (7.5-11.1) 03/11/17 08:10 CMP Sodium 141 mmol/L (136-145) 03/11/17 08:10 Potassium 4.1 mmol/L (3.5-5.1) D 03/11/17 08:10 Chloride 109 mmol/L (98-107) H 03/11/17 08:10 Carbon Dioxide 27 mmol/L (21-32) 03/11/17 08:10 Anion Gap 5 (8-16) L 03/11/17 08:10 BUN 10 mg/dL (7-18) D 03/11/17 08:10 Creatinine 0.6 mg/dL (0.55-1.02) D 03/11/17 08:10 Creat Clearance w eGFR > 60 (>60) 03/09/17 07:35 Random Glucose 84 mg/dL (74-106) D 03/11/17 08:10 Calcium 8.6 mg/dL (8.5-10.1) 03/11/17 08:10 Total Bilirubin 0.9 mg/dL (0.2-1.0) 03/09/17 07:35 AST 19 U/L (15-37) 03/09/17 07:35 ALT 19 U/L (12-78) D 03/09/17 07:35 Alkaline Phosphatase 66 U/L (45-117) D 03/09/17 07:35 Total Protein 6.0 g/dl (6.4-8.2) L D 03/09/17 07:35 Albumin 3.0 g/dl (3.4-5.0) L D 03/09/17 07:35 Current Medications Generic Name Dose Route Start Last Admin Trade Name Freq PRN Reason Stop Dose Admin Acetaminophen 325 mg 03/09/17 18:59 03/11/17 03:12 Tylenol - PO 325 mg Q4H PRN Administration PAIN Amoxicillin/Clavulanate Potassium 1 tab 03/11/17 17:30 03/11/17 17:32 Augmentin - 875mg Tablet PO 1 tab BID@0800,1730 JACQUELYN Administration Fentanyl 1 patch 03/08/17 19:30 03/11/17 19:31 Duragesic 50mcg Patch - TD 1 patch Q72H JACQUELYN Administration Gabapentin 300 mg 03/08/17 22:00 03/11/17 14:15 Neurontin - PO 300 mg TID JACQUELYN Administration Heparin Sodium (Porcine) 5,000 unit 03/09/17 07:00 03/11/17 14:15 Heparin - SQ 5,000 unit TID JACQUELYN Administration Melatonin 5 mg 03/10/17 23:43 03/11/17 00:24 Melatonin PO 5 mg HS PRN Administration INSOMNIA Miscellaneous 1 each 03/09/17 12:44 Duragesic Patch Waste TD PRN PRN PAIN Oxycodone HCl 5 mg 03/09/17 19:00 03/11/17 14:54 Roxicodone - PO 5 mg Q4H PRN Administration PAIN Promethazine HCl 12.5 mg 03/08/17 19:00 03/11/17 03:11 Phenergan Injection - IVPB 12.5 mg Q6H PRN Administration NAUSEA AND/OR VOMITING Tamsulosin HCl 0.4 mg 03/10/17 08:30 03/11/17 09:43 Flomax - PO 0.4 mg DAILY@0830 JACQUELYN Administration Home Medications Medication Instructions Recorded FENTANYL 50mcg PATCH [DURAGESIC 50 1 each TD Q72H #10 patch.td72 07/16/14 mcg PATCH -] Cyclobenzaprine HCl [Flexeril -] 10 mg PO TID 10/05/15 Gabapentin 300 mg PO TID 10/05/15 Hydrocodone/Acetaminophen [Lorcet 1 each PO PRN PRN 12/11/16 5-325 mg Tablet] Tramadol HCl 50 mg PO Q6H PRN #12 tablet MDD 4 12/11/16 Microbiology 03/08/17 16:00 Blood - Peripheral Venous Blood Culture - Preliminary NO GROWTH OBTAINED AFTER 72 HOURS, INCUBATION TO CONTINUE FOR 2 DAYS. 03/08/17 16:00 Blood - Peripheral Venous Blood Culture - Preliminary NO GROWTH OBTAINED AFTER 72 HOURS, INCUBATION TO CONTINUE FOR 2 DAYS. 03/09/17 16:45 Urine - Urine Clean Catch Urine Culture - Final NO GROWTH OBTAINED 03/08/17 15:03 Urine - Urine Clean Catch Urine Culture - Final Contaminated: Please Repeat PE: per resident's note ASSESSMENT AND PLAN: Patient is a 46 y/o lady with PMHx of nephrolithiasis, pseudomonas UTI, diverticulitis , pancreatitis , s/p CCY, chronic back pain due to herniated disks and spinal stenosis , R renal papillary necrosis , Helicobacter pylori, mastoiditis who presented with abdominal pain and was found to be septic with an obstructing Right distal ureteral stone . # S/p Sepsis due to a complicated UTI/pyelonephritis/ obstructive uropathy s/p cysto and ureteral stent placement, due to having an obstructing Right distal ureteral stone with hydronephrosis s/p stent placement by urologist Dr.Janice Cheema but stone was not removed hence needs Lithotripsy , will have it as an outpatient. s/p Iv zosyn , will start the patient on po Augmentin. No growth so far. Patient has multiple antibiotic allergies. As per ID can go home with Augmentin. Continue Oxycodone, patient keeps asking for Dilaudid since was discontinued . On Flomax continue. # SHELBY: due to dehydration s/p IVF , resolved #H/o chronic back pain: on Fentayl patch , neurontin, oxycodone PRN while here only . Follow with her own pain management doctor upon discharge. # H/o CP; need stress test as out pt DVT PX: Heparin sq if stabke can go home in AM
[2017-03-11] MEDS ORDERED: MELATONIN 5 MG TABLETS PO ONE (23:45)
[2017-03-12] MEDS: oxyCODONE HCL 5 MG TABLET PO PRN ×2 (00:13→08:42)
[2017-03-12] MEDS: ACETAMINOPHEN 325 MG TABLET (FP) PO PRN ×2 (00:13→08:43)
[2017-03-12] MEDS: GABAPENTIN 300 MG CAPSULE (FP) PO SCH (06:13)
[2017-03-12] MEDS: HEPARIN NA (PORCINE) 5,000 UNITS/ML 1ML VIAL SQ SCH (06:13)
[2017-03-12] MEDS: AMOX TR/POT CLAV 875MG/125MG TABLETS (FP) PO SCH (08:42)
[2017-03-12] MEDS: TAMSULOSIN HCL 0.4 MG CAP.ER.24H (FP) PO SCH (08:43)
--- NOTE | 2017-03-12 09:32 | PN ---
Teaching Attending Note Name of Resident: Sharonda Cotter ATTENDING PHYSICIAN STATEMENT I saw and evaluated the patient. I reviewed the resident's note and discussed the case with the resident. I agree with the resident's findings and plan as documented. SUBJECTIVE: Patient is comfortable feeling better with no acute distress. Pain is better, no difficulty with urination. OBJECTIVE: Vital Signs Temperature 98.6 F 03/12/17 06:00 Pulse Rate 70 03/12/17 06:00 Respiratory Rate 16 03/12/17 06:00 Blood Pressure 127/77 03/12/17 06:00 O2 Sat by Pulse Oximetry (%) 98 03/11/17 20:24 CBCD WBC 8.9 K/mm3 (4.0-10.0) 03/11/17 08:10 RBC 4.02 M/mm3 (3.60-5.2) 03/11/17 08:10 Hgb 11.4 GM/dL (10.7-15.3) 03/11/17 08:10 Hct 35.5 % (32.4-45.2) 03/11/17 08:10 MCV 88.3 fl (80-96) 03/11/17 08:10 MCHC 32.2 g/dl (32.0-36.0) 03/11/17 08:10 RDW 15.9 % (11.6-15.6) H 03/11/17 08:10 Plt Count 336 K/MM3 (134-434) 03/11/17 08:10 MPV 7.8 fl (7.5-11.1) 03/11/17 08:10 CMP Sodium 141 mmol/L (136-145) 03/11/17 08:10 Potassium 4.1 mmol/L (3.5-5.1) D 03/11/17 08:10 Chloride 109 mmol/L (98-107) H 03/11/17 08:10 Carbon Dioxide 27 mmol/L (21-32) 03/11/17 08:10 Anion Gap 5 (8-16) L 03/11/17 08:10 BUN 10 mg/dL (7-18) D 03/11/17 08:10 Creatinine 0.6 mg/dL (0.55-1.02) D 03/11/17 08:10 Creat Clearance w eGFR > 60 (>60) 03/09/17 07:35 Random Glucose 84 mg/dL (74-106) D 03/11/17 08:10 Calcium 8.6 mg/dL (8.5-10.1) 03/11/17 08:10 Total Bilirubin 0.9 mg/dL (0.2-1.0) 03/09/17 07:35 AST 19 U/L (15-37) 03/09/17 07:35 ALT 19 U/L (12-78) D 03/09/17 07:35 Alkaline Phosphatase 66 U/L (45-117) D 03/09/17 07:35 Total Protein 6.0 g/dl (6.4-8.2) L D 03/09/17 07:35 Albumin 3.0 g/dl (3.4-5.0) L D 03/09/17 07:35 Current Medications Generic Name Dose Route Start Last Admin Trade Name Freq PRN Reason Stop Dose Admin Acetaminophen 325 mg 03/09/17 18:59 03/12/17 08:43 Tylenol - PO 325 mg Q4H PRN Administration PAIN Amoxicillin/Clavulanate Potassium 1 tab 03/11/17 17:30 03/12/17 08:42 Augmentin - 875mg Tablet PO 1 tab BID@0800,1730 JACQUELYN Administration Fentanyl 1 patch 03/08/17 19:30 03/11/17 19:31 Duragesic 50mcg Patch - TD 1 patch Q72H JACQUELYN Administration Gabapentin 300 mg 03/08/17 22:00 03/12/17 06:13 Neurontin - PO 300 mg TID JACQUELYN Administration Heparin Sodium (Porcine) 5,000 unit 03/09/17 07:00 03/12/17 06:13 Heparin - SQ 5,000 unit TID JACQUELYN Administration Melatonin 5 mg 03/10/17 23:43 03/11/17 00:24 Melatonin PO 5 mg HS PRN Administration INSOMNIA Miscellaneous 1 each 03/09/17 12:44 Duragesic Patch Waste TD PRN PRN PAIN Oxycodone HCl 5 mg 03/09/17 19:00 03/12/17 08:42 Roxicodone - PO 5 mg Q4H PRN Administration PAIN Promethazine HCl 12.5 mg 03/08/17 19:00 03/11/17 03:11 Phenergan Injection - IVPB 12.5 mg Q6H PRN Administration NAUSEA AND/OR VOMITING Tamsulosin HCl 0.4 mg 03/10/17 08:30 03/12/17 08:43 Flomax - PO 0.4 mg DAILY@0830 JACQUELYN Administration Home Medications Medication Instructions Recorded FENTANYL 50mcg PATCH [DURAGESIC 50 1 each TD Q72H #10 patch.td72 07/16/14 mcg PATCH -] Cyclobenzaprine HCl [Flexeril -] 10 mg PO TID 10/05/15 Gabapentin 300 mg PO TID 10/05/15 Hydrocodone/Acetaminophen [Lorcet 1 each PO PRN PRN 12/11/16 5-325 mg Tablet] Tramadol HCl 50 mg PO Q6H PRN #12 tablet MDD 4 12/11/16 Amox-Tr/K Cl [Augmentin 875-125mg 1 tab PO BID@0800,1730 #5 tablet 03/12/17 Tablet -] Tamsulosin HCl [Flomax -] 0.4 mg PO DAILY@0830 #14 cap.er.24h 03/12/17 PE: per resident's note ASSESSMENT AND PLAN: Patient is a 46 y/o lady with PMHx of nephrolithiasis, pseudomonas UTI, diverticulitis , pancreatitis , s/p CCY, chronic back pain due to herniated disks and spinal stenosis , R renal papillary necrosis , Helicobacter pylori, mastoiditis who presented with abdominal pain and was found to be septic with an obstructing Right distal ureteral stone . # S/p Sepsis due to a complicated UTI/pyelonephritis/ obstructive uropathy s/p cysto and ureteral stent placement, due to having an obstructing Right distal ureteral stone with hydronephrosis s/p stent placement by urologist Dr.Janice Cheema but stone was not removed hence needs Lithotripsy as an outpatient. Patient will will followed with dr.Marc Sagastume as an outpatient. s/p Iv zosyn , will continue with po Augmentin. No growth so far. Patient has multiple antibiotic allergies. As per ID can go home with Augmentin. Patient has pain meds at home since she follows with the pain management doctor. Continue Flomax. # SHELBY: due to dehydration s/p IVF , resolved #H/o chronic back pain: Follow with her own pain management doctor. # H/o CP; need stress test as out pt discharge patient home today.
[2017-03-12 11:22] VITALS: BP 125/75; PULSE 89; TEMP 98.5
--- NOTE | 2017-03-12 11:39 | DS ---
Physical Exam: SUBJECTIVE: Patient seen and examined OBJECTIVE: Vital Signs Period Temp Pulse Resp BP Sys/Jackson Pulse Ox Last 24 Hr 98.5 F-99.9 F 70-93 16-20 120-127/70-77 98-98 PHYSICAL EXAM GENERAL: The patient is awake, alert, and fully oriented, in no acute distress. HEAD: Normal with no signs of trauma. EYES: PERRL, extraocular movements intact, sclera anicteric, conjunctiva clear. ENT: Ears normal, nares patent, oropharynx clear without exudates, moist mucous membranes. NECK: Trachea midline, full range of motion, supple. LUNGS: Breath sounds equal, clear to auscultation bilaterally, no wheezes, no crackles, no accessory muscle use. HEART: Regular rate and rhythm, S1, S2 without murmur, rub or gallop. ABDOMEN: Soft, nontender, nondistended, normoactive bowel sounds, no guarding, no rebound, no hepatosplenomegaly, no masses. EXTREMITIES: 2+ pulses, warm, well-perfused, no edema. NEUROLOGICAL: Cranial nerves II through XII grossly intact. Normal speech, gait not observed. PSYCH: Normal mood, normal affect. SKIN: Warm, dry, normal turgor, no rashes or lesions noted. LABS Laboratory Results - last 24 hr 03/11/17 08:10 Sodium 141 Potassium 4.1 D Chloride 109 H Carbon Dioxide 27 Anion Gap 5 L BUN 10 D Creatinine 0.6 D Random Glucose 84 D Calcium 8.6 Magnesium 1.8 HOSPITAL COURSE: Date of Admission:03/08/17 Date of Discharge: 03/12/17 Discharge Summary Reason For Visit: HYDRONEPHROSIS W/ OBSTRUCTING CALCULUS Current Active Problems Hydronephrosis (Acute) Ureteral calculus (Acute) Condition: Improved - Instructions Diet, Activity, Other Instructions: You were admitted to the hospital for a large (1cm) kidney stone affecting your right kidney. You were treated with antibiotics and a stent was placed in your right ureter. You need to have the stent removed and the stone removed by a procedure called lithotripsy next week by Dr. Perez. Recommendations: -You may resume your regular daily activities and diet as tolerated. Drink plenty of fluids to stay hydrated. Medications: -Continue taking your regular daily medications with the following additions below. Please call your pain management doctor for pain medications. (1) Take Augmentin 875mg (an antibiotic) once this evening with food. On Wednesday and Wednesday you will take it two times per day (12 hours apart). Take the pills with food. (2) Take Flomax 0.4mg daily until you see Dr. Perez. Discuss with him when you should stop taking this medication. (3) Take Bacid (a probiotic) two times per day with meals for 2 weeks. (4) You are prescribed two tablets of Zofran. You can it every 6 hours apart for severe nausea. Follow-ups: -Make an appointment next week with Dr. Perez to have the stent and kidney stone removed. Discuss with him when you should stop taking Flomax. -Make an appointment with a zoogler to have a stress test performed for the chest pressure/pain you have been experiencing. This will help your doctors determine if you have any heart disease. Please return to the Emergency Department if you have worsening abdominal pain, pain in your side, fever, chills, chest pain, or any new or concerning symptoms. Referrals: Deni Perez MD [Staff Physician] - 1 Week Eber Mims MD [Staff Physician] - Disposition: HOME - Home Medications Comprehensive Discharge Medication List: Ambulatory Orders FENTANYL 50mcg PATCH [DURAGESIC 50 mcg PATCH -] 1 each TD Q72H #10 patch.td72 Cyclobenzaprine HCl [Flexeril -] 10 mg PO TID 10/05/15 Gabapentin 300 mg PO TID 10/05/15 Hydrocodone/Acetaminophen [Lorcet 5-325 mg Tablet] 1 each PO PRN PRN 12/11/16 Tramadol HCl 50 mg PO Q6H PRN #12 tablet MDD 4 12/11/16 Amox-Tr/K Cl [Augmentin 875-125mg Tablet -] 1 tab PO BID@0800,1730 #5 tablet 07/23 Lactobacillus Acidophilus [Bacid -] 1 each PO BID #28 capsule 03/12/17 Ondansetron HCl [Zofran] 4 mg PO Q6H PRN #2 tablet 03/12/17 Tamsulosin HCl [Flomax -] 0.4 mg PO DAILY@0830 #14 cap.er.24h 03/12/17 - Discharge Referral Referred to [facility] No
== END 2017-03-12 13:11 | disposition home or self-care (01) | DRG 720 ==
LOC: JER 09:35 → JERBED 16:47 → J6S 19:36
PROVIDERS: ADMIT Internal Medicine; ATTEND Internal Medicine
PROC: BT1DYZZ Fluoroscopy of Right Kidney, Ureter and Bladder using Other Contrast (ICD-10-PCS; 2017-03-08)
PROC: 0T768DZ Dilation of Right Ureter with Intraluminal Device, Via Natural or Artificial Opening Endoscopic (ICD-10-PCS; principal; 2017-03-08 20:57)
DX: A41.9 Sepsis, unspecified organism (principal); N13.2 Hydronephrosis with renal and ureteral calculous obstruction; N17.9 Acute kidney failure, unspecified; E87.2 Acidosis; N39.0 Urinary tract infection, site not specified; E86.0 Dehydration; N10 Acute pyelonephritis; Z87.440 Personal history of urinary (tract) infections; R07.9 Chest pain, unspecified; Z86.718 Personal history of other venous thrombosis and embolism; M48.20 Kissing spine, site unspecified; E86.9 Volume depletion, unspecified
CPT/HCPCS: 36415; 71045-TC; 74176-TC; 74177-TC; 76000-TC; 80048; 80053; 81003; 81015; 83605; 83690; 83735; 85025; 85027; 85610; 85730; 86850; 86900; 86901; 87040; 87086; 93005; 93010; 94760; 99284-25; J1644

== ENCOUNTER 2017-07-16 12:12 | Emergency (ER) | payer OTHER ==
[2017-07-16 12:17] VITALS: BMI 27.7
--- NOTE | 2017-07-16 12:35 | PDOC ---
Attending Attestation - Resident Resident Name: Sharon Pack - ED Attending Attestation I have performed the following: I have examined & evaluated the patient, The case was reviewed & discussed with the resident, I agree w/resident's findings & plan, Exceptions are as noted - HPI HPI: 07/16/17 13:35 47y F hx of renal papillary necrosis, kidney stones, spinal stenosis/herniated disks with chronic back pain (on fentanyl patch) gall stone pancreatitis s/p cholecystectomy presents wiht diffuse upper abdominal pain since yesterday approx 4pm, pain is intermittent, crampy, associated vomiting/diarrhea. voimting x5 or so, is yellowish, 1x streaked with blood approx, preceede diarrhe which are yellowish and watery. no fever/chills/ pt endorsed brief episode of sharp pain lasting a second when she was vomiting earlier today. no recent traval, or abx use. GENERAL: The patient is awake, alert, and fully oriented, Nontoxic - in no acute distress. HEAD: Normocephalic, atraumatic. EYES: extraocular movements intact, sclera anicteric, conjunctiva clear. ENT: Normal voice, dry mucous membranes. NECK: Normal range of motion, supple LUNGS: Breath sounds equal, clear to auscultation bilaterally. No wheezes, no rhonchi, no rales. HEART: tacchcyardic, ABDOMEN: Soft, mild epigastric tenderness, no CVA tenderness, no rebound/guardng EXTREMITIES: Normal range of motion, no edema. No clubbing or cyanosis. No cords, erythema, or tenderness. NEUROLOGICAL: No facial assymetry, Normal speech, PSYCH: Normal mood, normal affect. SKIN: Warm, Dry, normal turgor, - Physicial Exam PE: 07/20/17 05:47 see above - Medical Decision Making 07/16/17 13:38 hr elevated, will hydration with fliuds ddx - gastritis, pancreattis, kidney stones, gastroenteritis, pyelo/uti will obtain blood work, consider ct abd Heart Score/ECG Review - ECG Impressions Comment:: 07/16/17 14:20 Twelve-lead EKG was performed and reviewed by me. There is normal sinus rhythm with a normal rate. Rate of 93 The axis is normal. The intervals are normal. There is normal R wave progression There are no ST or T wave abnormalities. Impression: Normal twelve-lead EKG
[2017-07-16] MEDS ORDERED: FAMOTIDINE 20 MG/50 ML IVPB 20 MG/50 ML MG IVPB ONE ×2 (12:58→13:14)
[2017-07-16] MEDS ORDERED: ACETAMINOPHEN 1000 MG/100 ML VIAL (NON FORMULARY) IVPB ONE (12:58)
--- NOTE | 2017-07-16 12:58 | PDOC ---
History of Present Illness - General Chief Complaint: Pain, Acute Stated Complaint: ABD PAIN, VOMITING Time Seen by Provider: 07/16/17 12:26 History Source: Patient Exam Limitations: No Limitations - History of Present Illness Initial Comments: This is a 47 YOF with h/o gallstone pancreatitis now s/p cholecystectomy, renal stones (c/b obstructive uropathy and infection in 03/2017), renal papillary necrosis, chronic back pain (DDD and spinal stenosis), appendectomy, and undifferentiated chest pain/palpitations for which she has not yet followed up with recommended stress test, who p/w one day of worsening diffuse L>R sharp non -radiating upper abdominal pain up to 10/ similar to her prior gallstone pancreatitis and to her prior kidney stones. She additionally notes nausea and 5 episodes of vomiting since yesterday with her one most recent episode with green and streaks of blood. She reports brown watery diarrhea as well. She expresses concern that her uncle (with whom she has spent a great deal of time with lately) was recently admitted to the ICU and has MRSA, and she is sure she had exposure to this. She additionally endorses chills, congestion, and throat itching, but denies any fever or other symptoms. She has been using her normal Fentanyl patch for pain. Past History - Past Medical History Allergies/Adverse Reactions: Allergies Allergy/AdvReac Type Severity Reaction Status Date / Time lidocaine [From Lidoderm] Allergy Mild itchiness Verified 07/16/17 12:14 vancomycin Allergy Mild Hives Verified 07/16/17 12:14 gentamicin Allergy Verified 07/16/17 12:14 morphine Allergy Difficulty Verified 07/16/17 12:14 Breathing ketorolac tromethamine AdvReac Verified 07/16/17 12:14 [From Toradol] NSAIDS (Non-Steroidal AdvReac Verified 07/16/17 12:14 Anti-Inflamma Home Medications: Ambulatory Orders FENTANYL 50mcg PATCH [DURAGESIC 50 mcg PATCH -] 1 each TD Q72H #10 patch.td72 Cyclobenzaprine HCl [Flexeril -] 10 mg PO TID 10/05/15 Gabapentin 300 mg PO TID 10/05/15 Hydrocodone/Acetaminophen [Lorcet 5-325 mg Tablet] 1 each PO PRN PRN 12/11/16 Tramadol HCl 50 mg PO Q6H PRN #12 tablet MDD 4 10/06/17 Lactobacillus Acidophilus [Bacid -] 1 each PO BID #28 capsule 03/12/17 Ondansetron HCl [Zofran] 4 mg PO Q6H PRN #2 tablet 03/12/17 Tamsulosin HCl [Flomax -] 0.4 mg PO DAILY@0830 #14 cap.er.24h 03/12/17 Amoxicillin/Potassium Clav [Augmentin 875-125 Tablet] 1 each PO TID #24 tablet 07/16/17 Anemia: No Asthma: No Cancer: No 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.) CVA: No COPD: No CHF: No Dementia: No Diabetes: No GI Disorders: Yes (PANCREATITIS,DIVERTICULITIS, COLITIS) Disorders: Yes (right renal papillary necrosis; kidney stones; renal stents on the right si) HTN: No Hypercholesterolemia: No Kidney Stones: Yes Liver Disease: No Seizures: No Thyroid Disease: No - Surgical History Abdominal Surgery: Yes Appendectomy: Yes Cardiac Surgery: No Cholecystectomy: Yes Lung Surgery: No Neurologic Surgery: No Orthopedic Surgery: No - Family Disease History Family Disease History: Heart Disease: Father - Immunization History Immunization Up to Date: Yes - Suicide/Smoking/Psychosocial Hx Smoking Status: No Smoking History: Never smoked Have you smoked in the past 12 months: No Number of Cigarettes Smoked Daily: 0 Information on smoking cessation initiated: No Hx Alcohol Use: No Drug/Substance Use Hx: No Substance Use Type: None Hx Substance Use Treatment: No Abd/GI Specific PMHX - Complaint Specific PMHX Colitis: Yes Diverticulitis: Yes Pancreatitis: Yes Review of Systems - Review of Systems Able to Perform ROS?: Yes Constitutional: No: Chills, Fever, Unexplained wgt Loss HEENTM: Yes: Nose Congestion. No: Throat Pain Respiratory: Yes: Cough. No: Shortness of Breath Cardiac (ROS): No: Chest Pain, Palpitations ABD/GI: Yes: Diarrhea, Nausea, Vomiting, Other (abdominal pain). No: Constipated : No: Burning, Dysuria Musculoskeletal: No: Back Pain, Neck Pain Integumentary: No: Bruising, Rash Neurological: No: Headache, Numbness, Tingling, Weakness, Dizziness Endocrine: No: Unexplained Weight Gain, Unexplained Weight Loss *Physical Exam - Vital Signs Last Vital Signs Temp Pulse Resp BP Pulse Ox 99.1 F 119 H 18 117/97 100 07/16/17 12:14 07/16/17 12:14 07/16/17 12:14 07/16/17 12:14 07/16/17 12:14 - Physical Exam General Appearance: Yes: Nourished, Appropriately Dressed, Mild Distress, Other (uncomfortable appearing adult female who is splinting her upper abdomen with her right hand and laying on her left side, answering questions appropriately) HEENT: positive: EOMI, NEERAJ, Normal Voice, Hearing Grossly Normal. negative: Scleral Icterus (R), Scleral Icterus (L), Nasal Congestion Neck: positive: Trachea midline, Supple. negative: Tender, Rigid Respiratory/Chest: positive: Lungs Clear, Normal Breath Sounds. negative: Respiratory Distress, Crackles, Rhonchi, Stridor, Wheezing Cardiovascular: positive: Regular Rhythm, Regular Rate. negative: Murmur Gastrointestinal/Abdominal: positive: Normal Bowel Sounds, Tender (diffuse upper abdominal tenderness worse in the epigastrium and LUQ, no rebound), Soft. negative: Organomegaly, Pulsatile Mass, Guarding Musculoskeletal: positive: Normal Inspection. negative: Decreased Range of Motion, Vertebral Tenderness Extremity: positive: Normal Capillary Refill, Normal Inspection, Normal Range of Motion. negative: Tender, Cyanosis Integumentary: positive: Normal Color, Dry, Warm. negative: Erythema, Rash, Bruising Neurologic: positive: pet caregiver II-XII NML intact (grossly), Fully Oriented, Alert, Normal Mood/Affect, Normal Response, Motor Strength 5/5 Heart Score/ECG Review #1 NSR, rate of 93, normal axis and intervals, no ischemic changes ED Treatment Course - LABORATORY CBC & Chemistry Diagram: 07/16/17 15:51 07/16/17 15:51 Medical Decision Making - Medical Decision Making Adult female patient p/w epigastric and left-sided abdominal pain. Initial Vital Signs Temp Pulse Resp BP Pulse Ox 99.1 F 119 H 18 117/97 100 07/16/17 12:14 07/16/17 12:14 07/16/17 12:14 07/16/17 12:14 07/16/17 12:14 Exam: appears uncomfortable, diffuse upper abdominal tenderness worse in the epigastrium and LUQ, no rebound DDX IBNLT: UTI/pyelonephritis, diverticulitis wwo abscess or perforation, colitis, ovarian torsion, PID, TOA, ovarian cyst, malignancy, hernia, AAA/AD, pancreatitis, appendicitis, gastritis, PUD, ACS, renal colic, SBO, bowel ischemia, bowel perforation, cholecystitis, musculoskeletal, constipation, etc. W/U ordered: CBCD CMP UA UCx GC/Chlamydia/Trich TOLU US TX ordered: IVF, Ofirmev, Zofran SL, Pepcid Patient is a very difficult stick. US guided EJ placement attempted and failed. US guided left AC PIV is placed and blood is drawn but line infiltrates. Patient was able to receive IVF and Ofirmev and Pepcid before line infiltrated. Will get non-contrast ab/pel CT as patient remains tender. Unlikely UTI/pyelonephritis as patient has no dysuria, strange colors/smells, no h/o recurrent UTI. Unlikely diverticulitis as patient has no known h/o diverticulosis/ diverticulitis. Unlikely colitis as clinically pts abdomen is not distended/no ascites, no fever, other VS wnl. Unlikely ovarian torsion as patient has no adnexal ttp on bimanual exam. Unlikely PID/TOA as patient denies h/o STIs, no report of abnormal discharge no adnexal ttp, VS are wnl. Unlikely ovarian cyst as patient denies h/o ovarian cysts, unlikely hemorrhagic as pt denies sxs of anemia. Unlikely malignancy as patient has no palpable mass, no reported recent B symptoms. Unlikely hernia as there is no outwardly palpable lump. Unlikely AAA/AD as no midline pulsatile mass or h/o AAA/AD, denies h/o HTN or connective tissue d/o. Unlikely pancreatitis as pt denies EtOH use, h/o gallstones, no known hypercalcemia. Unlikely appendicitis as pt has no fever, RLQ or umbilical abdominal pain, or anorexia. Unlikely gastritis as pt denies h/o significant GERD, no overuse of EtOH. Unlikely PUD as pt does not report relief of pain ~2 hours postprandially or with antacids. Unlikely ACS as patient has few risk factors, no associated SOB or typical arm/ neck radiation. Unlikely renal stone as patient notes no clinical hematuria, has no CVA ttp. Unlikely SBO as patient has been passing stool and gas normally per their baseline. Unlikely mesenteric ischemia as patient has no known A-fib or coagulopathy, no pain out of proportion. Unlikely bowel perforation as patient does not appear to have acute abdomen, no peritoneal signs. Unlikely cholecystitis as no postprandial worsening. Causes of splenomegaly: SPLEEN -Sequestration (RBC defects) -Proliferation (hyperreactive lymphocyte generation from infection like EBV, or autoimmune process) -Lipid deposition (inborn error of metabolism like Gauchers, Neimann-Pick, amyloidosis, etc) -Endowment (e.g. cyst or congenital) -Engorgement (backup from portal HTN) -Neoplasm (mets or leukemia/lymphoma) EKG: NSR, rate of 93, normal axis and intervals, no ischemic changes CXR: NADP Laboratory Tests 07/16/17 07/16/17 07/16/17 15:51 15:51 15:51 WBC 10.1 H RBC 4.04 Hgb 11.7 Hct 34.7 MCV 86.0 MCH 29.0 MCHC 33.8 RDW 15.8 H Plt Count 395 MPV 7.8 Neutrophils % 61.8 D Lymphocytes % 31.3 D Monocytes % 6.0 Eosinophils % 0.2 D Basophils % 0.7 Sodium 142 Potassium 3.7 Chloride 109 H Carbon Dioxide 24 Anion Gap 9 BUN 7 Creatinine 0.7 Creat Clearance w eGFR > 60 Random Glucose 84 Lactic Acid Calcium 8.9 Phosphorus 2.8 Magnesium 2.1 Total Bilirubin 0.4 D AST 18 ALT 26 Alkaline Phosphatase 73 Creatine Kinase 79 Cancelled Troponin I < 0.02 Cancelled Total Protein 7.4 Albumin 3.9 Lipase 109 Urine Color Urine Appearance Urine pH Ur Specific [place] Urine Protein Urine Glucose (UA) Urine Ketones Urine Blood Urine Nitrite Urine Bilirubin Urine Urobilinogen Ur Leukocyte Esterase Urine WBC (Auto) Urine RBC (Auto) Ur Epithelial Cells Urine Bacteria Urine Mucus Urine HCG, Qual 07/16/17 07/16/17 07/16/17 15:51 15:51 17:00 WBC RBC Hgb Hct MCV MCH MCHC RDW Plt Count MPV Neutrophils % Lymphocytes % Monocytes % Eosinophils % Basophils % Sodium Potassium Chloride Carbon Dioxide Anion Gap BUN Creatinine Creat Clearance w eGFR Random Glucose Lactic Acid 1.4 Calcium Phosphorus Magnesium Total Bilirubin AST ALT Alkaline Phosphatase Creatine Kinase Troponin I Total Protein Albumin Lipase Cancelled Urine Color Yellow Urine Appearance Slcloudy Urine pH 8.0 D Ur Specific [place] 1.023 Urine Protein Negative Urine Glucose (UA) Negative Urine Ketones Negative Urine Blood Negative Urine Nitrite Negative Urine Bilirubin Negative Urine Urobilinogen Negative Ur Leukocyte Esterase Trace Urine WBC (Auto) 10 Urine RBC (Auto) 1 Ur Epithelial Cells Moderate Urine Bacteria Moderate Urine Mucus Few Urine HCG, Qual Negative CT A/P: On reassessment: Repeat VS: DISCHARGE The patient has gotten significant relief of symptoms with ED medications. Workup is not concerning for emergency-level pathology at this time. The patient is appropriate for discharge with close outpatient follow up. She comfortable with this plan and will follow up with her PCP in 1-3 days. Return precautions are discussed and they will come back to the ER if necessary. *DC/Admit/Observation/Transfer Diagnosis at time of Disposition: Colitis, Renal stones Abdominal pain Qualifiers: Abdominal location: unspecified location Qualified Code(s): R10.9 - Unspecified abdominal pain Vomiting Qualifiers: Vomiting type: unspecified Vomiting Intractability: non-intractable Nausea presence: with nausea Qualified Code(s): R11.2 - Nausea with vomiting, unspecified - Discharge Dispostion Disposition: HOME Condition at time of disposition: Stable Decision to Admit order: No - Prescriptions Prescriptions: Amoxicillin/Potassium Clav [Augmentin 875-125 Tablet] 1 each PO TID #24 tablet - Referrals Referrals: Rina Baumann MD [Primary Care Provider] - Vivek Fuentes MD [Staff Physician] - - Patient Instructions Printed Discharge Instructions: DI for Colitis Additional Instructions: You were seen in the ER for abdominal pain, vomiting, and diarrhea. We did lab work, an X-ray, an EKG, and a CT scan and found inflammation of the colon with possible infection. Your pain and nausea improved with medications here in the ER. After our assessment, we do not believe you are having a medical emergency at this time, and we believe you are safe to go home. Please follow up with your regular PCP doctor in 1-3 days. Call their clinic as soon as possible, tell them you were seen in the ER, and tell them you need an appointment. 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 Take Tylenol and your regular pain medications for pain. If you have any new or worsening symptoms, please come back to the ER at any time (24 hours a day). If you are having severe or life threatening symptoms, or symptoms that make it unsafe to drive or have someone drive you, please call 911. - Post Discharge Activity
[2017-07-16] MEDS ORDERED: ONDANSETRON 4 MG/2 ML VIAL IVPUSH ONE (12:59)
[2017-07-16] MEDS ORDERED: SODIUM CHLORIDE 0.9% 500 ML INFUS.BAG IV ONE (13:00)
[2017-07-16] MEDS ORDERED: ACETAMINOPHEN INJECTION 100 ML IVPB ONE (13:14)
[2017-07-16] MEDS ORDERED: ONDANSETRON 4 MG/2 ML VIAL ONE (13:14)
[2017-07-16] MEDS ORDERED: ONDANSETRON *ODT* 4 MG TABLET SL ONE (13:33)
[2017-07-16] MEDS ORDERED: ONDANSETRON *ODT* 4 MG TABLET ONE (14:05)
[2017-07-16 16:13] LABS: BASO % 0.7 % (0-2.0); EOS % 0.2 % (0-4.5); HEMATOCRIT 34.7 % (32.4-45.2); HEMOGLOBIN 11.7 GM/dL (10.7-15.3); LYMPH % 31.3 % (8-40); MCHC 33.8 g/dl (32.0-36.0); MEAN PLT VOLUME 7.8 fl (7.5-11.1); NEUT % 61.8 % (42.8-82.8); PLATELET COUNT 395 K/MM3 (134-434); RBC 4.04 M/mm3 (3.60-5.2); RDW 15.8 % (11.6-15.6); WHITE BLOOD COUNT 10.1 K/mm3 (4.0-10.0)
[2017-07-16 16:41] LABS: ALBUMIN 3.9 g/dl (3.4-5.0); ANION GAP 9 (8-16); BILIRUBIN,TOTAL 0.4 mg/dL (0.2-1.0); BLOOD UREA NITROGEN 7 mg/dL (7-18); CALCIUM 8.9 mg/dL (8.5-10.1); CHLORIDE 109 mmol/L (98-107); CO2 24 mmol/L (21-32); CREATININE 0.7 mg/dL (0.55-1.02); GLUCOSE,RANDOM 84 mg/dL (74-106); LIPASE 109 U/L (73-393); MAGNESIUM 2.1 mg/dL (1.8-2.4); PHOSPHOROUS 2.8 mg/dL (2.5-4.9); POTASSIUM 3.7 mmol/L (3.5-5.1); SGOT/AST 18 U/L (15-37); SGPT/ALT 26 U/L (12-78); SODIUM 142 mmol/L (136-145); TOT PROT 7.4 g/dl (6.4-8.2)
[2017-07-16 16:42] LABS: ALK PHOS 73 U/L (45-117)
[2017-07-16 17:10] VITALS: BP 129/88; PULSE 94; TEMP 99
[2017-07-16 17:19] LABS: HCG,QUALITATIVE URINE NEGATIVE
[2017-07-16 17:33] LABS: URINE APPEARANCE SLCLOUDY; URINE BILIRUBIN NEGATIVE (<2.0 mg/dL); URINE COLOR YELLOW; URINE GLUCOSE (UA) NEGATIVE (NEGATIVE); URINE KETONE NEGATIVE (NEGATIVE); URINE LEUK ESTERASE TRACE (NEGATIVE); URINE NITRITE NEGATIVE (NEGATIVE); URINE PROTEIN NEGATIVE (NEGATIVE); URINE UROBILINOGEN NEGATIVE mg/dL (0.2-1.0)
[2017-07-16 17:49] LABS: EPI CELLS MODERATE /HPF (FEW); URINE BACTERIA MODERATE /hpf (NONE SEEN); URINE MUCUS FEW
[2017-07-16] MEDS ORDERED: ACETAMINOPHEN 500 MG TABLET (FP) PO ONE (20:15)
[2017-07-16] MEDS ORDERED: ACETAMINOPHEN 325 MG TABLET (FP) ONE (20:42)
--- NOTE | 2017-07-17 08:21 | EKG ---
Test Reason : Blood Pressure : / mmHG Vent. Rate : 093 BPM Atrial Rate : 093 BPM P-R Int : 138 ms QRS Dur : 070 ms QT Int : 356 ms P-R-T Axes : 075 048 043 degrees QTc Int : 442 ms NORMAL SINUS RHYTHM NORMAL ECG WHEN COMPARED WITH ECG OF 08-MAR-2017 17:17, NO SIGNIFICANT CHANGE WAS FOUND Confirmed by BETY ELIZABETH MD ([id number]) on 07/17/2017 8:20:50 AM Referred By: Confirmed By:BETY ELIZABETH MD
--- NOTE | 2017-07-19 07:35 | PDOC ---
Patient Follow-up (Call Back) - Post ED Follow - Up Condition at time of discharge: Stable Disposition at time of original discharge: HOME Reason for Call Back: Abnwl. Microbiology Signs/Symptoms Improved: No - Disposition Additional Instructions/Notes: Urine culture +. Spoke to patient. Sent rx for cipro to treat pseudomonas UTI
== END 2017-07-16 20:46 | disposition home or self-care (01) ==
LOC: JER 12:12
PROC: 3E033GC Introduction of Other Therapeutic Substance into Peripheral Vein, Percutaneous Approach (ICD-10-PCS; principal; 2017-07-16)
PROC: 3E033NZ Introduction of Analgesics, Hypnotics, Sedatives into Peripheral Vein, Percutaneous Approach (ICD-10-PCS; 2017-07-16)
DX: K52.9 Noninfective gastroenteritis and colitis, unspecified (principal); N20.0 Calculus of kidney; Z87.442 Personal history of urinary calculi; M54.5 Low back pain; G89.29 Other chronic pain; Z87.19 Personal history of other diseases of the digestive system; Z90.49 Acquired absence of other specified parts of digestive tract
CPT/HCPCS: 36415; 71045-TC-FY; 74176-TC; 80053; 81003; 81015; 82550; 83605; 83690; 83735; 84100; 84484; 84703; 85025; 87086; 87186; 93005; 93010; 96365; 96375; 99283-25; J0131; Q0162

== ENCOUNTER 2017-12-30 20:14 | Emergency (ER) | payer OTHER ==
[2017-12-30 20:25] VITALS: BMI 27.9
--- NOTE | 2017-12-30 20:25 | PDOC ---
Rapid Medical Evaluation Chief Complaint: Pain Time Seen by Provider: 12/30/17 20:19 Medical Evaluation: Allergies Allergy/AdvReac Type Severity Reaction Status Date / Time lidocaine [From Lidoderm] Allergy Mild itchiness Verified 07/16/17 12:14 vancomycin Allergy Mild Hives Verified 07/16/17 12:14 gentamicin Allergy Verified 07/16/17 12:14 morphine Allergy Difficulty Verified 07/16/17 12:14 Breathing ketorolac tromethamine AdvReac Verified 07/16/17 12:14 [From Toradol] NSAIDS (Non-Steroidal AdvReac Verified 07/16/17 12:14 Anti-Inflamma 12/30/17 20:20 I have performed a brief in person evaluation of this patient. The patient present with a CC of: Bilateral UE pain and "burning on the plantar aspect of feet bilaterally Pt is a 47 YO chronic pain patient who states over the past 2-3 days she has had bilateral UE and LE pain. Pain 9/10. Pt has a Fentanyl patch, Hydrocodone. Pertinent PE findings: Lungs Clear Heart RRR MS: Moves all extremities without difficulty. Neuro: Alert and oriented Psych: Appropriate affect Basic labs with influenza swab The patient will proceed to the ED for further evaluation: Discharge Disposition - Diagnosis Fever Qualifiers: Fever type: unspecified Qualified Code(s): R50.9 - Fever, unspecified - Referrals - Patient Instructions - Post Discharge Activity
[2017-12-30] MEDS ORDERED: ACETAMINOPHEN 1000 MG/100 ML VIAL (NON FORMULARY) IVPB ONE (21:46)
[2017-12-30] MEDS ORDERED: SODIUM CHLORIDE 0.9% 500 ML INFUS.BAG IV ONE ×2 (21:46→23:49)
--- NOTE | 2017-12-30 21:59 | PDOC ---
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 Ms Turner states that she always has low back pain, but recently she has had severe, 10/10 sharp and burning pain in both her hands that radiates up her forearms. She additoinally has continued low back pain that moves up to her b/l shoulders as well as burning to the soles of both feet. She has tried her usual home fentanyl patch but states that it "must not be working." She tried a hot water bottle without relief. She additionally reports that she had 5-6 episodes of vomiting two days ago, 3- 4 episodes today, and an additional episode of emesis this morning. She has been unable to eat or drink much for several days as she had emesis whenever she tried to eat or drink. Additionally, she reports nasal congestion and rhinorrhea. She denies fevers, shaking chills, change in bowel habits, hematemesis, urinary frequency, or dysuria at home. Past History - Past Medical History Allergies/Adverse Reactions: Allergies Allergy/AdvReac Type Severity Reaction Status Date / Time lidocaine [From Lidoderm] Allergy Mild itchiness Verified 12/30/17 21:09 vancomycin Allergy Mild Hives Verified 12/30/17 21:09 gentamicin Allergy Verified 12/30/17 21:09 ketorolac tromethamine AdvReac Verified 12/30/17 21:09 [From Toradol] NSAIDS (Non-Steroidal AdvReac Verified 12/30/17 21:09 Anti-Inflamma Home Medications: Ambulatory Orders FENTANYL 50mcg PATCH [DURAGESIC 50 mcg PATCH -] 1 each TD Q72H #10 patch.td72 Cyclobenzaprine HCl [Flexeril -] 10 mg PO TID 10/05/15 Gabapentin 300 mg PO TID 10/05/15 Hydrocodone/Acetaminophen [Lorcet 5-325 mg Tablet] 1 each PO PRN PRN 12/11/16 Tramadol HCl 50 mg PO Q6H PRN #12 tablet MDD 4 12/11/16 Lactobacillus Acidophilus [Bacid -] 1 each PO BID #28 capsule 03/12/17 Ondansetron HCl [Zofran] 4 mg PO Q6H PRN #2 tablet 03/12/17 Tamsulosin HCl [Flomax -] 0.4 mg PO DAILY@0830 #14 cap.er.24h 03/12/17 Amoxicillin/Potassium Clav [Augmentin 875-125 Tablet] 1 each PO TID #24 tablet 07/16/17 Ciprofloxacin [Cipro -] 500 mg PO Q12H #14 tablet 07/19/17 Anemia: No Asthma: No Cancer: No 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.) CVA: No COPD: No CHF: No Dementia: No Diabetes: No GI Disorders: Yes (PANCREATITIS,DIVERTICULITIS, COLITIS) Disorders: Yes (right renal papillary necrosis; kidney stones; renal stents on the right si) HTN: No Hypercholesterolemia: No Kidney Stones: Yes Liver Disease: No Seizures: No Thyroid Disease: No Other medical history: herniated disc, spinal stenosis - Surgical History Abdominal Surgery: Yes Appendectomy: Yes Cardiac Surgery: No Cholecystectomy: Yes Lung Surgery: No Neurologic Surgery: No Orthopedic Surgery: No - Family Disease History Family Disease History: Heart Disease: Father - Immunization History Immunization Up to Date: Yes - Suicide/Smoking/Psychosocial Hx Smoking Status: No Smoking History: Never smoked Have you smoked in the past 12 months: No Number of Cigarettes Smoked Daily: 0 Information on smoking cessation initiated: No Hx Alcohol Use: No Drug/Substance Use Hx: No Substance Use Type: None Hx Substance Use Treatment: No Review of Systems - Review of Systems Comments:: General: No fevers, no chills, no weight or appetite change, no malaise HEENT: No changes in vision, no changes in hearing. +Congestion, +runny nose CV: No chest pain, no palpitations, no LE edema Pulm: No SOB, no cough, no wheezing GI: +Nausea, vomiting. No change in bowel habits, no melena : No frequency, no urgency, no dysuria Musc: +Chronic and acute back pain. BUE and B/L foot pain. No joint swelling, no recent injury Skin: No rash, no lesions, no erythema Endo: No excessive thirst, no heat/cold intolerance Heme: No unusual bruising or bleeding, no swollen glands Neuro: No syncope, no numbness/tingling, no focal weakness Vasc: No claudication Psych: No recent change in mood, no SI or HI *Physical Exam - Vital Signs Last Vital Signs Temp Pulse Resp BP Pulse Ox 100.5 F H 113 H 22 H 146/80 100 12/30/17 20:21 12/30/17 20:21 12/30/17 20:21 12/30/17 20:21 12/30/17 20:21 - Physical Exam Comments: General: Uncomfortable HEENT: PERRL, EOMI, MMM, voice normal. No pharyngeal erythema or exudate. No sinus tenderness. Cards: Tacycardic, regular Pulm: Comfortable on room air, clear to auscultation bilaterally Abd: Soft, nontender, nondistended. Healing linear wound to abdomen, no surrounding erythema or edema, no drainage or purulence. Back: Tender to tough along entire spine and paraspinal muscles. Ext: Atraumatic. No LE edema. ROM intact. Trigger finger in R 4th finger Vasc: Extremities WWP. Skin: Normal color, no rashes or lesions Neuro: A&Ox3, CN grossly intact, normal speech. Strength 5/5 and equal bilaterally in shoulders, elbows, wrists, hands, hips, knees, and feet. Sensation to light touch grossly intact in b/l upper and lower extremities. No focal deficits. Psych: Upset ED Treatment Course - LABORATORY CBC & Chemistry Diagram: 12/30/17 22:04 12/30/17 21:21 Medical Decision Making - Medical Decision Making Carmen Turner is a 47yo woman with a PMH of chronic back pain and renal papillary necrosis who presents to the ED complaining of b/l hand, forearm, shoulder and foot pain for 3 days along with multiple episodes of vomiting. - Tachycardic and febrile on arrival - No neurological deficits on exam, reassuring given h/o spinal stenosis - Most likely ddx dehydration secondary to vomiting, electrolyte abnormality, body aches secondary to sepsis w/ as yet undetermined source - Symptoms of nasal congestion, vomiting, body aches consistent with viral illness. Flu sent in triage - negative. - Labs sent aside from cultures. Patient is a hard stick and required multiple attempts. Will evaluate CBC prior to additional attempts to obtain cultures. - 1L fluid bolus and IV Tylenol for low grade fever, pain, and dehydration. 12/30/17 23:36 - CBC returned without abnormalities - 1x doses of Valium, dilaudid, gabapentin for continued pain per Dr Wiseman - Chemistry pending. UA needs to be collected. 12/31/17 00:16 - Chemistry unremarkable - Additional 1L IVF for suspected dehydration - EKG completed. NSR, no abnormalities noted - CXR to be completed, UA needs to be collected. Patient signed out to Dr Villarreal for the remainder of her care. Seen and discussed with Dr Wiseman. Ashlie Davis PGY1 *DC/Admit/Observation/Transfer Diagnosis at time of Disposition: Low back pain, Vomiting Fever Qualifiers: Fever type: unspecified Qualified Code(s): R50.9 - Fever, unspecified - Referrals Referrals: Rina Baumann MD [Primary Care Provider] - - Patient Instructions - Post Discharge Activity
[2017-12-30] MEDS ORDERED: ACETAMINOPHEN INJECTION 100 ML IVPB ONE (22:10)
[2017-12-30] MEDS ORDERED: ONDANSETRON 4 MG/2 ML VIAL IVPUSH ONE (22:53)
[2017-12-30] MEDS ORDERED: FAMOTIDINE 20 MG/50 ML IVPB 20 MG/50 ML MG IVPB ONE (22:53)
[2017-12-30 23:22] LABS: EOS % 0.8 % (0-4.5); HEMATOCRIT 35.4 % (32.4-45.2); HEMOGLOBIN 11.8 GM/dL (10.7-15.3); LYMPH % 39.2 % (8-40); MCH 29.3 pg (25.7-33.7); MCHC 33.5 g/dl (32.0-36.0); MEAN CELL VOLUME 87.6 fl (80-96); MEAN PLT VOLUME 8.3 fl (7.5-11.1); MONO % 6.7 % (3.8-10.2); NEUT % 52.3 % (42.8-82.8); PLATELET COUNT 345 K/MM3 (134-434); RBC 4.04 M/mm3 (3.60-5.2); RDW 16.2 % (11.6-15.6); WHITE BLOOD COUNT 8.6 K/mm3 (4.0-10.0)
[2017-12-30] MEDS ORDERED: GABAPENTIN 300 MG CAPSULE (FP) PO ONE (23:24)
[2017-12-30] MEDS ORDERED: diazePAM 5 MG TABLET PO ONE (23:24)
[2017-12-30] MEDS ORDERED: HYDROmorphone HCL CARPU-JECT 2 MG/1 ML DISP.SYRIN IVPUSH ONE (23:24)
[2017-12-30] MEDS ORDERED: HYDROmorphone HCl 2 MG/ML VIAL ONE (23:38)
[2017-12-30] MEDS ORDERED: diazePAM 5 MG TABLET ONE (23:38)
[2017-12-30] MEDS ORDERED: GABAPENTIN 100 MG CAPSULE (FP) ONE (23:39)
--- NOTE | 2017-12-30 23:50 | PDOC ---
Attending Attestation - [facility] HPI: 12/31/17 00:24 The patient is a 47 year old woman with a significant past medical history of chronic pain (degenerative disk, lumbar disk herniation, spinal stenosis), and renal papillary necrosis who presents to the ED with complaints of 3 days of hand and forearm pain, pain on the soles of her feet, shoulder pain, and vomiting.The patient states that she has chronic lower back pain, but recently she has had severe, 8/10 sharp and burning pain in both her hands that radiates up her forearms. She reports lower back pain that radiates to her bilateral shoulders as well as a burning like sensation to her bilateral feet. Patient also reports that she had 5-6 episodes of vomiting two days ago, 3-4 episodes today, and an additional episode of emesis this morning. She states she developed a subjective fever earlier today. Denies focal numbness/weakness/tingling. Denies any other symptoms. - Physicial Exam PE: 12/31/17 00:24 Constitutional: Awake, alert, oriented. No acute distress. Head: Normocephalic. Atraumatic Eyes: PERRL. EOMI. Conjunctivae are not pale. ENT: Mucous membranes are moist and intact. Posterior pharynx without exudates or erythema. Uvula midline. Neck: Supple. Full ROM. No lymphadenopathy. Cardiovascular: + tachycardia. Regular rhythm. S1, S2 regular. Distal pulses are 2+ and symmetric. Pulmonary/Chest: No evidence of respiratory distress. Clear to auscultation bilaterally No wheezing, rales or rhonchi. Abdominal: Soft and non-distended. There is no tenderness. No rebound, guarding or rigidity. No organomegaly. No palpable masses. Good bowel sounds. Back: + tenderness along the left paraspinal region down back. Musculoskeletal: No edema. No cyanosis. No clubbing. Full range of motion in all extremities. No calf tenderness. Radial/pedal pulses are intact and 2+ bilaterally. Muscle strength sensation intact. Skin: Skin is warm and dry. No petechiae. No purpura. Neurological: Alert and oriented to person, place, and time. Cranial nerves II -XII are grossly intact. Normal speech. Strength is grossly symmetric. No sensory deficits. Psychiatric: Good eye contact. Normal interaction, affect and behavior. <Alma Torres - Last Filed: 12/31/17 00:24> - Medical Decision Making 12/31/17 00:34 I, Dr. Bere Wiseman, DO, attest that this document has been prepared under my direction and personally reviewed by me in its entirety. I further attest, that it accurately reflects all work, treatment, procedures and medical decision -making performed by me. 12/31/17 00:34 a/p: 47yo female with hx of chronic pain with low grade temp today and burning sensation to hands and feet -neuropathic pain - on chronic opiates, but states neuropathic pain to palms of hands and feet has been present x 3 days -no new weakness, no trauma to back or neck -c/o L paraspinal neck ttp -pt with low grade temp - will send labs, flu, cxr, ua -will give tylenol for fever -pt states she used to take gabapentin for pain - but ran out a few weeks ago -no new weakness, no cough, no abd pain -has had n/v -will send labs, ekg, cxr, ua -will medicate -will monitor and reassess 12/31/17 01:40 cxr clear pending ua wbc wnl renal and liver function stable 12/31/17 02:26 ua negative <Bere Wiseman - Last Filed: 12/31/17 02:26> Heart Score/ECG Review - ECG Intrepretation Comment:: 12/31/17 01:39 sinus at 71, nl axis, nl interval, no acute st/t wave findings <Bere Wiseman - Last Filed: 12/31/17 02:26> Attestations - Attestations 12/31/17 00:24 Documentation prepared by Alma Torres, acting as medical director of hospice for Bere Wiseman DO <Alma Torres - Last Filed: 12/31/17 00:24>
[2017-12-30 23:56] LABS: ALBUMIN 3.5 g/dl (3.4-5.0); ALK PHOS 69 U/L (45-117); ANION GAP 11 MMOL/L (8-16); BILIRUBIN,TOTAL 0.2 mg/dL (0.2-1); BLOOD UREA NITROGEN 13 mg/dL (7-18); CALCIUM 8.6 mg/dL (8.5-10.1); CHLORIDE 109 mmol/L (98-107); CO2 22 mmol/L (21-32); CREATININE 0.8 mg/dL (0.55-1.3); GLUCOSE,RANDOM 92 mg/dL (74-106); MAGNESIUM 2.1 mg/dL (1.8-2.4); PHOSPHOROUS 2.3 mg/dL (2.5-4.9); SGOT/AST 11 U/L (15-37); SGPT/ALT 15 U/L (13-61); SODIUM 142 mmol/L (136-145); TOT PROT 6.8 g/dl (6.4-8.2)
--- NOTE | 2017-12-30 23:57 | PDOC ---
*Physical Exam - Vital Signs Last Vital Signs Temp Pulse Resp BP Pulse Ox 100.5 F H 113 H 22 H 146/80 100 12/30/17 20:21 12/30/17 20:21 12/30/17 20:21 12/30/17 20:21 12/30/17 20:21 - Physical Exam Comments: 12/31/17 00:58 General: Comfortable, no acute distress HEENT: PERRL, EOMI, MMM, voice normal, normal neck ROM, no LAD Cards: RRR, no murmur appreciated Pulm: Comfortable on room air, clear to auscultation bilaterally Abd: Soft, nontender, nondistended : No CVA tenderness Rectal: Normal tone, no blood noted, no perianal lesions Ext: Atraumatic. No LE edema. ROM intact. Strength 5/5 and equal bilaterally; Back: no point tenderness; paraspinal muscle spasm Vasc: Extremities WWP. Palpable radial and pedal pulses bilaterally Skin: Normal color, no rashes or lesions Neuro: A&Ox3, CN grossly intact, normal speech, motor/sensory grossly intact and symmetric Psych: Mood appropriate to situation 12/31/17 00:59 ED Treatment Course - LABORATORY CBC & Chemistry Diagram: 12/30/17 22:04 12/30/17 21:21 - ADDITIONAL ORDERS Additional order review: Laboratory Results 12/30/17 12/30/17 22:04 21:21 Sodium 142 Potassium 4.0 Chloride 109 H Carbon Dioxide 22 Anion Gap 11 BUN 13 Creatinine 0.8 Creat Clearance w eGFR > 60 Random Glucose 92 Calcium 8.6 Phosphorus Cancelled 2.3 L Magnesium Cancelled 2.1 Total Bilirubin 0.2 AST 11 L ALT 15 Alkaline Phosphatase 69 Total Protein 6.8 Albumin 3.5 12/30/17 20:20 Influenza Types A,B Antigen - Final Nasopharyngeal Swab - Final 12/30/17 22:04 RBC 4.04 MCV 87.6 MCHC 33.5 RDW 16.2 H MPV 8.3 Neutrophils % 52.3 Lymphocytes % 39.2 D Monocytes % 6.7 Eosinophils % 0.8 D Basophils % 1.0 - Medications Given in the ED: ED Medications Discontinued Medications Generic Name Dose Route Start Last Admin Trade Name Freq PRN Reason Stop Dose Admin Acetaminophen 1,000 mg 12/30/17 21:46 12/30/17 23:12 Ofirmev Injection - IVPB 12/30/17 21:47 1,000 mg ONCE ONE Administration Diazepam 5 mg 12/30/17 23:24 12/30/17 23:43 Valium - PO 12/30/17 23:25 5 mg ONCE ONE Administration Gabapentin 300 mg 12/30/17 23:24 12/30/17 23:43 Neurontin - PO 12/30/17 23:25 300 mg ONCE ONE Administration Hydromorphone HCl 0.5 mg 12/30/17 23:24 12/30/17 23:43 Dilaudid Injection - IVPUSH 12/30/17 23:25 0.5 mg ONCE ONE Administration Famotidine/Sodium Chloride 20 mg in 50 mls @ 100 mls/hr 12/30/17 22:53 23:12 Pepcid 20 Mg Premixed Ivpb - IVPB 12/30/17 23:22 100 mls/hr ONCE ONE Administration Ondansetron HCl 4 mg 12/30/17 22:53 12/30/17 23:12 Zofran Injection IVPUSH 12/30/17 22:54 4 mg ONCE ONE Administration Sodium Chloride 1,000 ml 12/30/17 21:46 12/30/17 23:12 Normal Saline - IV 12/30/17 21:47 1,000 ml ONCE ONE Administration Medical Decision Making - Medical Decision Making 12/31/17 00:19 47yo woman with a H chronic pain (degenerative disk, lumbar disk herniation, spinal stenosis), 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 #chronic pain #muscle spasm #viral syndrome: -ecg wnl -cbc/bmp wnl -influenza negative -pain control -chest xray negative for acute pathology -UA negative for acute infection 12/31/17 01:00 12/31/17 01:50 Disposition: chronic pain with muscle spam; possible viral infection; all ancillary studies wnl; will dc home and advise adequate fluid intake. Follow up with neurology and primary care.Robaxin and gabapentin prescribed. 12/31/17 02:22 *DC/Admit/Observation/Transfer Diagnosis at time of Disposition: Viral syndrome, Muscle spasm Fever Qualifiers: Fever type: unspecified Qualified Code(s): R50.9 - Fever, unspecified Low back pain Qualifiers: Chronicity: chronic Back pain laterality: unspecified Sciatica presence: without sciatica Qualified Code(s): M54.5 - Low back pain; G89.29 - Other chronic pain Vomiting Qualifiers: Vomiting type: unspecified Vomiting Intractability: non-intractable Nausea presence: unspecified Qualified Code(s): R11.10 - Vomiting, unspecified Chronic pain Qualifiers: Chronic pain type: chronic pain syndrome Qualified Code(s): G89.4 - Chronic pain syndrome - Discharge Dispostion Disposition: HOME Condition at time of disposition: Fair Decision to Admit order: No - Prescriptions Prescriptions: Gabapentin 400 mg PO TID 7 Days #21 capsule Methocarbamol [Robaxin -] 500 mg PO TID PRN 3 Days #9 tablet PRN Reason: Muscle Spasms - Referrals Referrals: Rina Baumann MD [Primary Care Provider] - Vasu Chen MD [Staff Physician] - - Patient Instructions Additional Instructions: Ms. Turner, you have been diagnosed with a viral infection along with muscle spasms. Stay hydrated and rest. We have prescribed you muscle relaxer and increased your gabapentin to 400mg three times a day. We have provided you with information for a neurologist to follow up with. Please return to ER if you experience any worsening of symptoms. - Post Discharge Activity
[2017-12-31 02:13] LABS: URINE APPEARANCE CLEAR; URINE BILIRUBIN NEGATIVE (<2.0 mg/dL); URINE COLOR LTYELLOW; URINE GLUCOSE (UA) NEGATIVE (NEGATIVE); URINE KETONE NEGATIVE (NEGATIVE); URINE LEUK ESTERASE 1+ (NEGATIVE); URINE NITRITE NEGATIVE (NEGATIVE); URINE PROTEIN NEGATIVE (NEGATIVE); URINE UROBILINOGEN NEGATIVE mg/dL (0.2-1.0)
[2017-12-31] MEDS ORDERED: diazePAM 5 MG TABLET PO ONE (02:15)
[2017-12-31 02:19] LABS: EPI CELLS FEW /HPF (FEW); URINE HYALINE CAST 3 /lpf; URINE MUCUS RARE
[2017-12-31 02:22] VITALS: BP 138/89; PULSE 66; TEMP 97.8
--- NOTE | 2017-12-31 09:30 | EKG ---
Test Reason : Blood Pressure : / mmHG Vent. Rate : 071 BPM Atrial Rate : 071 BPM P-R Int : 146 ms QRS Dur : 082 ms QT Int : 408 ms P-R-T Axes : 075 051 051 degrees QTc Int : 443 ms NORMAL SINUS RHYTHM NORMAL ECG WHEN COMPARED WITH ECG OF 16-JUL-2017 13:56, NO SIGNIFICANT CHANGE WAS FOUND Confirmed by BONNIE NG MD ([id number]) on 12/31/2017 9:30:21 AM Referred By: Confirmed By:BONNIE NG MD
== END 2017-12-31 02:35 | disposition home or self-care (01) ==
LOC: JER 20:14
PROC: 3E0337Z Introduction of Electrolytic and Water Balance Substance into Peripheral Vein, Percutaneous Approach (ICD-10-PCS; principal; 2017-12-30)
PROC: 3E033NZ Introduction of Analgesics, Hypnotics, Sedatives into Peripheral Vein, Percutaneous Approach (ICD-10-PCS; 2017-12-30)
PROC: 3E033GC Introduction of Other Therapeutic Substance into Peripheral Vein, Percutaneous Approach (ICD-10-PCS; 2017-12-30)
DX: R50.9 Fever, unspecified (principal); R11.10 Vomiting, unspecified; M54.5 Low back pain; G89.29 Other chronic pain
CPT/HCPCS: 36415; 71046-TC-FY; 80053; 81003; 81015; 83605; 83735; 84100; 84703; 85025; 87086; 87804; 93005; 93010; 99282-25; J0131

== ENCOUNTER 2018-10-05 06:46 | Emergency (ER) | payer OTHER ==
[2018-10-05 07:19] VITALS: TEMP 98.2; BMI 26.4
[2018-10-05] MEDS ORDERED: morphine CARPU-JECT 4 MG/1 ML DISP.SYRIN IVPUSH ONE ×2 (07:34→09:59)
[2018-10-05] MEDS ORDERED: LACTATED RINGERS SOLUTION 1,000 ML/1,000 ML INFUS.BAG IV STA ×2 (07:34→12:56)
[2018-10-05] MEDS ORDERED: ONDANSETRON 4 MG/2 ML VIAL IVPUSH ONE (07:34)
[2018-10-05] MEDS ORDERED: ONDANSETRON 4 MG/2 ML VIAL ONE (07:46)
[2018-10-05] MEDS ORDERED: morphine SULFATE 4 MG/ML VIAL ONE ×2 (07:46→10:11)
--- NOTE | 2018-10-05 08:18 | PDOC ---
Documentation entered by Ghulam Rodriguez SCRIBE, acting as scribe for Ruy Weaver MD. Ruy Weaver MD: This documentation has been prepared by the Jennifer cano Elijah, SCRIBE, under my direction and personally reviewed by me in its entirety. I confirm that the documentation accurately reflects all work, treatment, procedures, and medical decision making performed by me. History of Present Illness - General Chief Complaint: Pain, Acute Stated Complaint: ABD PAIN Time Seen by Provider: 10/05/18 07:32 History Source: Patient Exam Limitations: No Limitations - History of Present Illness Initial Comments: 10/05/18 09:22 Patient is a 48 year old female with a significant past medical history of chronic pain (degenerative disk, lumbar disk herniation, spinal stenosis), and renal papillary necrosis who presents to the ED with x5-6 days of sickness and R -Sided rib pain beginning last night. Patient associates having watery diarrhea (with the last episode being yesterday) and vomiting with the sickness. The patient reports that the Rib pain she is experiencing is shooting across her abdomen. Denies sick contacts. Allergies: Lidocaine, Vandomycin, gentamicin, ketorolac tromethamine, and NSAIDS PCP: Dr. Michel Past History - Past Medical History Allergies/Adverse Reactions: Allergies Allergy/AdvReac Type Severity Reaction Status Date / Time lidocaine [From Lidoderm] Allergy Mild itchiness Verified 12/30/17 21:09 vancomycin Allergy Mild Hives Verified 12/30/17 21:09 gentamicin Allergy Verified 12/30/17 21:09 ketorolac tromethamine AdvReac Verified 12/30/17 21:09 [From Toradol] NSAIDS (Non-Steroidal AdvReac Verified 12/30/17 21:09 Anti-Inflamma Home Medications: Ambulatory Orders Fentanyl 1 each TD DAILY 10/05/18 Gabapentin 300 mg PO TID 10/05/18 Hydrocodone/Acetaminophen [Lorcet 5-325 mg Tablet] 1 each PO ASDIR 10/05/18 Anemia: No Asthma: No Cancer: No 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.) CVA: No COPD: No CHF: No Dementia: No Diabetes: No GI Disorders: Yes (PANCREATITIS,DIVERTICULITIS, COLITIS) Disorders: Yes (right renal papillary necrosis; kidney stones; renal stents on the right si) HTN: No Hypercholesterolemia: No Kidney Stones: Yes Liver Disease: No Seizures: No Thyroid Disease: No - Surgical History Abdominal Surgery: Yes Appendectomy: Yes Cardiac Surgery: No Cholecystectomy: Yes Lung Surgery: No Neurologic Surgery: No Orthopedic Surgery: No - Family Disease History Family Disease History: Heart Disease: Father - Immunization History Immunization Up to Date: Yes - Suicide/Smoking/Psychosocial Hx Smoking Status: No Smoking History: Never smoked Have you smoked in the past 12 months: No Number of Cigarettes Smoked Daily: 0 Information on smoking cessation initiated: No Hx Alcohol Use: No Drug/Substance Use Hx: No Substance Use Type: None Hx Substance Use Treatment: No Abd/GI Specific PMHX - Complaint Specific PMHX Colitis: Yes Diverticulitis: Yes Pancreatitis: Yes Review of Systems - Review of Systems Comments:: 10/05/18 09:23 CONSTITUTIONAL: No fever, no chills, no fatigue EYES: No visual changes ENT: No ear pain, no sore throat CARDIOVASCULAR: No chest pain, no palpitations RESPIRATORY: No cough, no SOB GI: +R-Sided Pain Under Ribs +Nausea, +Vomiting +Diarrhea. No constipation GENITOURINARY: No dysuria, no frequency, no hematuria MUSKULOSKELETAL: No backpain, no joint pain, no myalgias SKIN: No rash NEURO: No headache *Physical Exam - Vital Signs Last Vital Signs Temp Pulse Resp BP Pulse Ox 98.2 F 78 16 128/78 100 10/05/18 07:12 10/05/18 07:12 10/05/18 07:12 10/05/18 07:12 10/05/18 07:12 - Physical Exam Comments: 10/05/18 08:15 Patient is awake and alert, well-nourished, writhing in pain EXAMINATION CONSTITUTIONAL: well-nourished; in moderate distress HEAD: Normocephalic; atraumatic EYES: PERRL; EOM intact, no scleral icterus ENMT: External appears normal; mm-dy NECK: Supple; non-tender; CARD: Normal S1, S2; no murmurs, rubs, or gallops RESP: Normal chest excursion with respiration; breath sounds clear and equal bilaterally; no wheezes, rhonchi, or rales ABD: Soft, non-distended; diffuse abd ttp most pronounced in the ruq with volunt guarding, no rebound; no palpable organomegaly, no palpable hernias EXT: Normal ROM in all four extremities; non-tender to palpation; distal pulses intact SKIN: Warm, dry, no rash NEURO: No focal neurological deficiencies. ED Treatment Course - LABORATORY CBC & Chemistry Diagram: 10/05/18 08:00 10/05/18 08:00 - RADIOLOGY Radiology Studies Ordered: Category Date Time Status ABDOMEN & PELVIS CT W/O CONTR [CT] Stat CT Scan 10/05/18 08:14 Ordered Progress Note - Progress Note Progress Note: Patient received subcutaneous lidocaine without effect. Continue to observe. Medical Decision Making - Medical Decision Making 10/05/18 08:35 Patient is a 48-year-old female with history of chronic upper and lower pain treated with transdermal fentanyl at 50 g, recurrent nephrolithiasis with right renal papillary necrosis, history of colitis presents with diffuse abdominal pain most pronounced in the right upper quadrant, associated with numerous episodes of bilious vomiting and nonbloody diarrhea for the past 5-6 days with decreased by mouth intake of solids and liquids. In the ER, patient is initially noted to be writhing in pain, with right upper quadrant tenderness to palpation with voluntary guarding as well as right CVA tenderness to palpation. Differential diagnosis includes pancreatitis versus colitis versus pyelonephritis versus nephrolithiasis versus gastroenteritis. Will obtain CBC/ CMP/lipase/magnesium. Will hydrate. We'll administer additional pain meds, antiemetics, we'll resuscitated with IV fluids. Will obtain CT that and pelvis with by mouth contrast only. Will reassess. 10/05/18 13:08 Patient reassessed. Patient is resting comfortably with minimal right-sided abdominal discomfort. There is no tenderness at McBurney's, Crooks's is negative. CT that and pelvis reveals no evidence of acute intra-abdominal pathology. 2 small left intrarenal stones are noted. Will continue to hydrate. Likely discharge of tolerates by mouth. 10/05/18 14:22 Patient tolerates by mouth. Patient has received 2 L of lactated Ringer's. Will discharge. *DC/Admit/Observation/Transfer Diagnosis at time of Disposition: Abdominal pain Qualifiers: Abdominal location: right upper quadrant Qualified Code(s): R10.11 - Right upper quadrant pain Vomiting Qualifiers: Vomiting type: unspecified Vomiting Intractability: non-intractable Nausea presence: with nausea Qualified Code(s): R11.2 - Nausea with vomiting, unspecified Diarrhea Qualifiers: Diarrhea type: unspecified type Qualified Code(s): R19.7 - Diarrhea, unspecified - Discharge Dispostion Disposition: HOME Condition at time of disposition: Stable - Referrals Referrals: Rina Baumann MD [Primary Care Provider] - Paresh Hernandez DO [Staff Physician] - - Patient Instructions Printed Discharge Instructions: DI for Abdominal Pain-Adult, DI for Vomiting - - Adult, DI for Diarrhea and Traveler's Diarrhea -- Adult - Post Discharge Activity - Attestations Physician Attestion: 10/05/18 08:15 The documentation was prepared by the scribe under my direct supervision. I have reviewed the documentation which correctly represents the findings, medical decision-making and critical action taken by me.
[2018-10-05] MEDS ORDERED: LIDOCAINE HCL 1%, 10 MG/ML (20ML VIAL) ONE (08:22)
[2018-10-05 08:42] LABS: BASO % 0.6 % (0-2.0); EOS % 0.8 % (0-4.5); HEMATOCRIT 39.5 % (32.4-45.2); HEMOGLOBIN 13.2 GM/dL (10.7-15.3); LYMPH % 32.4 % (8-40); MCH 29.6 pg (25.7-33.7); MCHC 33.5 g/dl (32.0-36.0); MEAN CELL VOLUME 88.4 fl (80-96); MEAN PLT VOLUME 8.1 fl (7.5-11.1); NEUT % 58.2 % (42.8-82.8); PLATELET COUNT 261 K/MM3 (134-434); RBC 4.47 M/mm3 (3.60-5.2); RDW 16.3 % (11.6-15.6); WHITE BLOOD COUNT 10.1 K/mm3 (4.0-10.0)
[2018-10-05 09:09] LABS: MAGNESIUM 2.2 mg/dL (1.8-2.4)
[2018-10-05 09:15] LABS: BILIRUBIN,TOTAL 0.5 mg/dL (0.2-1); BLOOD UREA NITROGEN 8.1 mg/dL (7-18); CALCIUM 9.8 mg/dL (8.5-10.1); CREATININE 0.6 mg/dL (0.55-1.3); EPI CELLS 8.9 /HPF (0-5/HPF); HYALINE CASTS 18 /lpf (0-8); POTASSIUM 4.1 mmol/L (3.5-5.1); TOT PROT 7.6 g/dl (6.4-8.2); URINE APPEARANCE CLEAR; URINE BACTERIA 114.3 /hpf (NEGATIVE); URINE BILIRUBIN NEGATIVE (NEGATIVE); URINE COLOR YELLOW; URINE GLUCOSE (UA) NEGATIVE (NEGATIVE); URINE KETONE TRACE (NEGATIVE); URINE LEUK ESTERASE TRACE (NEGATIVE); URINE NITRITE NEGATIVE (NEGATIVE); URINE PROTEIN NEGATIVE (NEGATIVE); URINE RBC 4 /hpf (0-4); URINE UROBILINOGEN 0.2 mg/dL (0.2-1.0); URINE WBC 2 /hpf (0-5)
[2018-10-05 11:26] LABS: PLATELET ESTIMATE ADEQUATE
[2018-10-05] MEDS ORDERED: morphine CARPU-JECT 2 MG/1 ML DISP.SYRIN IVPUSH ONE (13:22)
[2018-10-05] MEDS ORDERED: MORPHINE SULFATE 2 MG/ML VIAL ONE (13:53)
[2018-10-05 14:52] VITALS: BP 125/79; PULSE 73
== END 2018-10-05 15:24 | disposition home or self-care (01) ==
LOC: JER 06:46
PROC: 3E0337Z Introduction of Electrolytic and Water Balance Substance into Peripheral Vein, Percutaneous Approach (ICD-10-PCS; principal; 2018-10-05)
PROC: 3E033NZ Introduction of Analgesics, Hypnotics, Sedatives into Peripheral Vein, Percutaneous Approach (ICD-10-PCS; 2018-10-05)
PROC: 3E033GC Introduction of Other Therapeutic Substance into Peripheral Vein, Percutaneous Approach (ICD-10-PCS; 2018-10-05)
DX: R10.11 Right upper quadrant pain (principal); R11.2 Nausea with vomiting, unspecified; R19.7 Diarrhea, unspecified; G89.29 Other chronic pain
CPT/HCPCS: 36415; 74176-TC; 80053; 81003; 83690; 83735; 84703; 85025; 87086; 96361; 96374; 96375; 96376; 99283-25

== ENCOUNTER 2019-01-06 22:08 | Emergency (ER) | payer OTHER ==
[2019-01-06 22:16] VITALS: TEMP 98.1; BMI 26.7
[2019-01-06] MEDS ORDERED: ACETAMINOPHEN 1000 MG/100 ML VIAL (NON FORMULARY) IVPB ONE (22:47)
[2019-01-06] MEDS ORDERED: SODIUM CHLORIDE 1,000 ML IV STA (22:47)
[2019-01-06] MEDS ORDERED: ACETAMINOPHEN INJECTION 100 ML IVPB ONE (22:59)
[2019-01-06] MEDS ORDERED: ONDANSETRON 4 MG/2 ML VIAL IVPB ONE (23:01)
[2019-01-06] MEDS ORDERED: ONDANSETRON 4 MG/2 ML VIAL ONE (23:02)
--- NOTE | 2019-01-06 23:33 | PDOC ---
History of Present Illness - General Chief Complaint: Pain Stated Complaint: ABD PAIN Time Seen by Provider: 01/06/19 22:22 History Source: Patient Exam Limitations: No Limitations - History of Present Illness Initial Comments: 01/06/19 23:35 48y F with PMH of R Renal Papillary Necrosis, Kidney Stones, Pancreatitis, Appendectomy, Cholecystectomy, Tubal Ligation presenting to ED with complaints of lower abdominal pain that started 2h ago. Patient said she was in bed when she felt a sharp pain in the RLQ radiating to the LLQ, comes in waves. She had pain earlier today but it got worse a few hours ago. Associated with nausea and abdominal distension. Denies vomiting, diarrhea, blood in stools, hematuria, dysuria, frequency, chills, back pain, chest pain, fevers. Last BM was this AM and it was normal. She has had pain similar to this in the past. PMD: PMH:see hpi PSH: see hpi Meds: Allergies: see allergy list. Past History - Past Medical History Allergies/Adverse Reactions: Allergies Allergy/AdvReac Type Severity Reaction Status Date / Time lidocaine [From Lidoderm] Allergy Mild itchiness Verified 12/30/17 21:09 vancomycin Allergy Mild Hives Verified 12/30/17 21:09 gentamicin Allergy Verified 12/30/17 21:09 ketorolac tromethamine AdvReac Verified 12/30/17 21:09 [From Toradol] NSAIDS (Non-Steroidal AdvReac Verified 12/30/17 21:09 Anti-Inflamma Home Medications: Ambulatory Orders Fentanyl 1 each TD DAILY 10/05/18 Gabapentin 300 mg PO TID 10/05/18 Hydrocodone/Acetaminophen [Lorcet 5-325 mg Tablet] 1 each PO ASDIR 10/05/18 Anemia: No Asthma: No Cancer: No 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.) CVA: No COPD: No CHF: No Dementia: No Diabetes: No GI Disorders: Yes (PANCREATITIS,DIVERTICULITIS, COLITIS) Disorders: Yes (right renal papillary necrosis; kidney stones; renal stents on the right si) HTN: No Hypercholesterolemia: No Kidney Stones: Yes Liver Disease: No Seizures: No Thyroid Disease: No - Surgical History Abdominal Surgery: Yes Appendectomy: Yes Cardiac Surgery: No Cholecystectomy: Yes Lung Surgery: No Neurologic Surgery: No Orthopedic Surgery: No - Immunization History Immunization Up to Date: Yes - Psycho Social/Smoking Cessation Hx Smoking Status: No Smoking History: Never smoked Have you smoked in the past 12 months: No Number of Cigarettes Smoked Daily: 0 Hx Alcohol Use: No Drug/Substance Use Hx: No Substance Use Type: None Hx Substance Use Treatment: No Review of Systems - Review of Systems Constitutional: No: Symptoms Reported HEENTM: No: Symptoms Reported Respiratory: No: Symptoms reported Cardiac (ROS): No: Symptoms Reported ABD/GI: Yes: See HPI : No: Symptoms Reported Musculoskeletal: No: Symptoms Reported Integumentary: No: Symptoms Reported Neurological: No: Symptoms reported *Physical Exam - Vital Signs Last Vital Signs Temp Pulse Resp BP Pulse Ox 98.1 F 101 H 19 115/66 100 01/06/19 22:14 01/06/19 22:14 01/06/19 22:14 01/06/19 22:14 01/06/19 22:14 - Physical Exam General Appearance: Yes: Nourished, Appropriately Dressed. No: Apparent Distress HEENT: positive: EOMI, NEERAJ Neck: positive: Trachea midline, Supple. negative: Lymphadenopathy (R), Lymphadenopathy (L) Respiratory/Chest: positive: Lungs Clear, Normal Breath Sounds. negative: Crackles, Rales, Rhonchi, Stridor, Wheezing Cardiovascular: positive: Regular Rhythm, Regular Rate, S1, S2. negative: Edema , JVD, Murmur Vascular Pulses: Dorsalis-Pedis (R): 2+, Doralis-Pedis (L): 2+ Gastrointestinal/Abdominal: positive: Normal Bowel Sounds, Soft, Distended, Tenderness (RLQ, LLQ, suprapubic). negative: Guarding, Rebound Musculoskeletal: negative: CVA Tenderness Extremity: positive: Normal Capillary Refill. negative: Swelling, Calf Tenderness, Erythema Integumentary: positive: Normal Color, Dry, Warm Neurologic: positive: psych social worker II-XII NML intact, Fully Oriented, Alert, Normal Mood/ Affect, Normal Response, Motor Strength 07/10 ED Treatment Course - LABORATORY CBC & Chemistry Diagram: 01/06/19 23:25 01/06/19 23:25 - Medications Given in the ED: ED Medications Discontinued Medications Generic Name Dose Route Start Last Admin Trade Name Freq PRN Reason Stop Dose Admin Acetaminophen 1,000 mg 01/06/19 22:47 01/06/19 23:25 Ofirmev Injection - IVPB 01/06/19 22:48 1,000 mg ONCE ONE Administration Ondansetron HCl 4 mg 01/06/19 23:01 01/06/19 23:25 Zofran Injection IVPB 01/06/19 23:02 4 mg ONCE ONE Administration Medical Decision Making - Medical Decision Making 01/07/19 06:52 48y F with pmh of cholecystectomy, appendectomy, ltubal ligation, renal papillary infarct presenting with abdominal pain. vitals wnl ddx includes but not limited to sbo, renal infarct, colitis, constipation, ureteral stone. labs including lact, cbc, cmp iv fluids, zofran, ofirmev. pain not improved given 2mg morphine. pain slightly improved, 2mg morphine given. ct shows surgical clips. otherwise no acute pathology. appears as if patient is constipated; large stool burden in colon. pt feeling better. given miralax, simethicone, colace and fleet enema. given gi referral and return precautions. dispo: home Discharge - Discharge Information Problems reviewed: Yes Clinical Impression/Diagnosis: Abdominal pain Qualifiers: Abdominal location: lower abdomen, unspecified Qualified Code(s): R10.30 - Lower abdominal pain, unspecified Constipation Qualifiers: Constipation type: unspecified constipation type Qualified Code(s): K59.00 - Constipation, unspecified Disposition: HOME - Admission No - Follow up/Referral Referrals: Rina Baumann MD [Primary Care Provider] - Nan Bower DO [Staff Physician] - Vivek Fuentes MD [Staff Physician] - - Patient Discharge Instructions Patient Printed Discharge Instructions: DI for Abdominal Pain-Adult, DI for Constipation Additional Instructions: You were seen in the emergency room today for abdominal pain. The CT scan shows stool in the bowel and gas. No signs of infection or obstruction. Your blood work is also normal. I recommend taking laxatives (MiraLax), stool softeners and Gas-X. These can be found over the counter. I also recommend making an appointment with a GI doctor. Information is provided below. Come back to the emergency room for worsening pain, fevers, chills, vomiting, bloody stools or if any new or concerning symptom develops. Thank you - Post Discharge Activity
[2019-01-06 23:38] LABS: BASO % 0.7 % (0-2.0); EOS % 0.9 % (0-4.5); HEMATOCRIT 37.9 % (32.4-45.2); HEMOGLOBIN 12.8 GM/dL (10.7-15.3); LYMPH % 27.4 % (8-40); MCH 30.2 pg (25.7-33.7); MCHC 33.7 g/dl (32.0-36.0); MEAN CELL VOLUME 89.8 fl (80-96); MEAN PLT VOLUME 7.4 fl (7.5-11.1); MONO % 4.6 % (3.8-10.2); NEUT % 66.4 % (42.8-82.8); PLATELET COUNT 374 K/MM3 (134-434); RBC 4.23 M/mm3 (3.60-5.2); RDW 15.9 % (11.6-15.6); WHITE BLOOD COUNT 9.2 K/mm3 (4.0-10.0)
[2019-01-06] MEDS ORDERED: morphine CARPU-JECT 4 MG/1 ML DISP.SYRIN IVPUSH ONE (23:44)
[2019-01-06] MEDS ORDERED: MORPHINE SULFATE 2 MG/ML VIAL ONE (23:47)
[2019-01-07 00:38] LABS: ALK PHOS 86 U/L (45-117); ANION GAP 5 MMOL/L (8-16); BILIRUBIN,TOTAL 0.2 mg/dL (0.2-1); BLOOD UREA NITROGEN 12.9 mg/dL (7-18); CALCIUM 9.4 mg/dL (8.5-10.1); CHLORIDE 107 mmol/L (98-107); CO2 28 mmol/L (21-32); GLUCOSE,RANDOM 76 mg/dL (74-106); LIPASE 136 U/L (73-393); POTASSIUM 5.4 mmol/L (3.5-5.1); SGOT/AST 22 U/L (15-37); SGPT/ALT 26 U/L (13-61); SODIUM 140 mmol/L (136-145); TOT PROT 7.6 g/dl (6.4-8.2)
[2019-01-07] MEDS ORDERED: morphine CARPU-JECT 4 MG/1 ML DISP.SYRIN IVPUSH ONE (00:58)
[2019-01-07] MEDS ORDERED: MORPHINE SULFATE 2 MG/ML VIAL ONE (01:27)
[2019-01-07] MEDS ORDERED: SODIUM PHOSPHATE/NA BIPHOS 133 ML ENEMA PR ONE (02:04)
[2019-01-07] MEDS ORDERED: DOCUSATE SODIUM 100 MG CAPSULE (FP) PO ONE ×2 (02:04→02:07)
[2019-01-07] MEDS ORDERED: POLYETHYLENE GLYCOL 3350 119 GM BTL PO ONE (02:04)
[2019-01-07] MEDS ORDERED: SIMETHICONE 80 MG TAB.CHEW (FP) PO ONE (02:08)
--- NOTE | 2019-01-07 02:13 | PDOC ---
Attending Attestation - Resident Resident Name: DayanaraJulia - ED Attending Attestation I have performed the following: I have examined & evaluated the patient, The case was reviewed & discussed with the resident, I agree w/resident's findings & plan, Exceptions are as noted - HPI HPI: 01/07/19 02:10 48yoF w/ hx of mulitple abd surgeries presents w/ abd distension, pain across upper abdomen, nausea x today. No fevers, + normal BM this morning no vomiting, Never had pain like this before. - Physicial Exam PE: 01/07/19 02:11 Vital Signs - 24 hr 01/06/19 22:14 Temperature 98.1 F Pulse Rate 101 H Respiratory 19 Rate Blood Pressure 115/66 O2 Sat by Pulse 100 Oximetry (%) NAD RRR CTABL soft, + distended, nontender no guarding, no rebound. A&O x 3 CTAP w/ constipation, no e/o SBO, no renal stones. - Medical Decision Making 01/07/19 02:12 48yoF w/ "gassy" abd pain, CTAP w/ constipation, otherwise generally unremarkable. - labs - CT reviewed - sxs control - dispo.
[2019-01-07 02:27] VITALS: BP 120/74; PULSE 86
--- NOTE | 2019-01-09 10:56 | EKG ---
Test Reason : Blood Pressure : / mmHG Vent. Rate : 085 BPM Atrial Rate : 085 BPM P-R Int : 140 ms QRS Dur : 068 ms QT Int : 390 ms P-R-T Axes : 066 055 053 degrees QTc Int : 464 ms NORMAL SINUS RHYTHM NORMAL ECG WHEN COMPARED WITH ECG OF 31-DEC-2017 00:10, NO SIGNIFICANT CHANGE WAS FOUND Confirmed by JOSE MYERS MD ([id number]) on 01/09/2019 10:55:49 AM Referred By: Confirmed By:JOSE MYERS MD
== END 2019-01-07 02:27 | disposition home or self-care (01) ==
LOC: JER 22:08
PROC: 3E033NZ Introduction of Analgesics, Hypnotics, Sedatives into Peripheral Vein, Percutaneous Approach (ICD-10-PCS; principal; 2019-01-06)
PROC: 3E033NZ Introduction of Analgesics, Hypnotics, Sedatives into Peripheral Vein, Percutaneous Approach (ICD-10-PCS; 2019-01-06)
PROC: 3E033GC Introduction of Other Therapeutic Substance into Peripheral Vein, Percutaneous Approach (ICD-10-PCS; 2019-01-06)
DX: K59.00 Constipation, unspecified (principal); Z87.19 Personal history of other diseases of the digestive system; Z87.448 Personal history of other diseases of urinary system; Z98.51 Tubal ligation status; Z96.0 Presence of urogenital implants; Z90.49 Acquired absence of other specified parts of digestive tract; Z87.442 Personal history of urinary calculi; Z88.8 Allergy status to other drugs, medicaments and biological substances; Z88.1 Allergy status to other antibiotic agents; Z88.6 Allergy status to analgesic agent
CPT/HCPCS: 36415; 74177-TC; 80053; 83605; 83690; 84484; 85025; 93005; 93010; 99283-25; J0131; J7030

== ENCOUNTER 2020-10-25 01:51 | Inpatient (IN) | payer OTHER ==
[2020-10-25] MEDS ORDERED: FAMOTIDINE 20 MG/50 ML IVPB 20 MG/50 ML MG IVPB ONE ×2 (03:55→04:00)
[2020-10-25] MEDS ORDERED: ONDANSETRON 4 MG/2 ML VIAL IVPUSH ONE (03:55)
[2020-10-25] MEDS ORDERED: morphine CARPU-JECT 2 MG/1 ML DISP.SYRIN IVPUSH ONE ×3 (03:55→08:52)
[2020-10-25] MEDS ORDERED: SODIUM CHLORIDE 0.9% 500 ML INFUS.BAG IV ONE (03:55)
[2020-10-25] MEDS ORDERED: MORPHINE SULFATE 2 MG/ML VIAL ONE ×3 (03:59→09:08)
[2020-10-25] MEDS ORDERED: ONDANSETRON 4 MG/2 ML VIAL ONE (03:59)
[2020-10-25 04:48] LABS: EOS % 1.4 % (0-4.5); HEMATOCRIT 36.7 % (32.4-45.2); HEMOGLOBIN 12.1 GM/dL (10.7-15.3); LYMPH % 41.4 % (8-40); MCH 29.1 pg (25.7-33.7); MCHC 32.9 g/dl (32.0-36.0); MEAN CELL VOLUME 88.2 fl (80-96); MONO % 6.4 % (3.8-10.2); NEUT % 49.8 % (42.8-82.8); PLATELET COUNT 329 10^3/uL (134-434); RBC 4.16 M/mm3 (3.60-5.2); RDW 14.7 % (11.6-15.6); WHITE BLOOD COUNT 9.6 K/mm3 (4.0-10.0)
[2020-10-25 05:10] LABS: ALBUMIN 3.9 g/dl (3.4-5.0); BLOOD UREA NITROGEN 7.7 mg/dL (7-18)
[2020-10-25 05:12] LABS: CREATININE 0.8 mg/dL (0.55-1.3)
[2020-10-25 05:14] LABS: BILIRUBIN,TOTAL 0.1 mg/dL (0.2-1); TOT PROT 7.3 g/dl (6.4-8.2)
[2020-10-25] MEDS ORDERED: METOCLOPRAMIDE HCL INJECTION 10 MG/2 ML VIAL IVPUSH ONE (05:30)
[2020-10-25] MEDS ORDERED: METOCLOPRAMIDE HCL INJECTION 10 MG/2 ML VIAL ONE (05:45)
[2020-10-25 06:35] LABS: EPI CELLS 6 /uL (0-25.1); HYALINE CASTS 0 /uL (0-3.1); PH,URINE 5.5 (5.0-8.0); URINE APPEARANCE CLEAR; URINE BACTERIA 309 /uL (0-1359); URINE BILIRUBIN NEGATIVE (NEGATIVE); URINE COLOR YELLOW; URINE GLUCOSE (UA) NEGATIVE (NEGATIVE); URINE KETONE NEGATIVE (NEGATIVE); URINE LEUK ESTERASE 2+ (NEGATIVE); URINE NITRITE NEGATIVE (NEGATIVE); URINE PROTEIN NEGATIVE (NEGATIVE); URINE RBC 1617 /uL (0-23.9); URINE UROBILINOGEN 0.2 mg/dL (0.2-1.0); URINE WBC 133 /uL (0-25.8)
[2020-10-25 07:36] LABS: INR 0.89 (0.83-1.09)
[2020-10-25 07:38] LABS: ACTIVATED PTT 23.5 SECONDS (25.2-36.5)
[2020-10-25] MEDS ORDERED: ACETAMINOPHEN 325 MG TABLET (FP) PO PRN (12:53)
[2020-10-25] MEDS ORDERED: CYCLOBENZAPRINE HCL 10 MG TABLET (FP) PO PRN (12:53)
[2020-10-25 14:39] VITALS: BMI 33.7
[2020-10-25] MEDS: oxyCODONE HCL 5 MG TABLET PO PRN ×2 (14:49→23:30)
[2020-10-25] MEDS ORDERED: MORPHINE SULFATE 2 MG/ML VIAL IVPUSH PRN (20:00)
[2020-10-25] MEDS ORDERED: ONDANSETRON 4 MG/2 ML VIAL IVPUSH PRN (20:02)
[2020-10-25] MEDS: MONTELUKAST NA 10 MG TABLET PO SCH (22:31)
[2020-10-26] MEDS: morphine SULFATE 4 MG/ML VIAL IVPUSH PRN ×2 (03:44→09:09)
[2020-10-26] MEDS: ENOXAPARIN NA (PORCINE) 40 MG/0.4 ML DISP.SYRIN SQ SCH (09:11)
[2020-10-26] MEDS: LACTATED RINGERS SOLUTION 1,000 ML/1,000 ML INFUS.BAG IV SCH (10:15)
[2020-10-26 11:16] LABS: BASO % 0.6 % (0-2.0); EOS % 1.6 % (0-4.5); HEMATOCRIT 41.6 % (32.4-45.2); HEMOGLOBIN 13.9 GM/dL (10.7-15.3); LYMPH % 36.1 % (8-40); MCH 29.1 pg (25.7-33.7); MCHC 33.3 g/dl (32.0-36.0); MEAN CELL VOLUME 87.2 fl (80-96); MEAN PLT VOLUME 8.1 fl (7.5-11.1); MONO % 6.7 % (3.8-10.2); PLATELET COUNT 338 10^3/uL (134-434); RBC 4.78 M/mm3 (3.60-5.2); WHITE BLOOD COUNT 7.6 K/mm3 (4.0-10.0)
[2020-10-26 11:26] LABS: ALBUMIN 3.9 g/dl (3.4-5.0); BLOOD UREA NITROGEN 7.1 mg/dL (7-18); CALCIUM 9.1 mg/dL (8.5-10.1); MAGNESIUM 2.1 mg/dL (1.8-2.4)
[2020-10-26 11:29] LABS: CREATININE 0.8 mg/dL (0.55-1.3)
[2020-10-26 11:31] LABS: BILIRUBIN,TOTAL 0.5 mg/dL (0.2-1); TOT PROT 7.6 g/dl (6.4-8.2)
[2020-10-26] MEDS ORDERED: SODIUM PHOSPHATE/NA BIPHOS 133 ML ENEMA RC ONE (13:34)
[2020-10-26] MEDS ORDERED: ACETAMINOPHEN 1000 MG/100 ML VIAL (NON FORMULARY) IVPB PRN (13:38)
[2020-10-26] MEDS: ACETAMINOPHEN 1000 MG/100 ML VIAL (NON FORMULARY) IVPB PRN (17:09)
[2020-10-26] MEDS ORDERED: MORPHINE SULFATE 2 MG/ML VIAL IVPUSH ONE (20:47)
[2020-10-26] MEDS: MONTELUKAST NA 10 MG TABLET PO SCH (21:10)
[2020-10-27] MEDS: LACTATED RINGERS SOLUTION 1,000 ML/1,000 ML INFUS.BAG IV SCH (01:13)
[2020-10-27] MEDS: ACETAMINOPHEN 1000 MG/100 ML VIAL (NON FORMULARY) IVPB PRN (04:31)
[2020-10-27] MEDS: ENOXAPARIN NA (PORCINE) 40 MG/0.4 ML DISP.SYRIN SQ SCH (09:03)
[2020-10-27 17:46] LABS: CALCIUM 8.8 mg/dL (8.5-10.1)
[2020-10-27 17:47] LABS: ALBUMIN 3.7 g/dl (3.4-5.0); BLOOD UREA NITROGEN 7.9 mg/dL (7-18)
[2020-10-27 17:49] LABS: BILIRUBIN,DIRECT 0.2 mg/dL (0.0-0.2)
[2020-10-27 17:50] LABS: CREATININE 0.5 mg/dL (0.55-1.3)
[2020-10-27 17:51] LABS: BILIRUBIN,TOTAL 0.5 mg/dL (0.2-1); TOT PROT 6.9 g/dl (6.4-8.2)
[2020-10-27] MEDS ORDERED: MORPHINE SULFATE 2 MG/ML VIAL IVPUSH ONE (20:54)
[2020-10-27] MEDS: MONTELUKAST NA 10 MG TABLET PO SCH (21:49)
[2020-10-27] MEDS ORDERED: oxyCODONE HCL 5 MG TABLET PO ONE (22:18)
[2020-10-27] MEDS: ACETAMINOPHEN 500 MG TABLET (FP) PO PRN (22:20)
[2020-10-28] MEDS: ACETAMINOPHEN 500 MG TABLET (FP) PO PRN ×2 (10:32→21:46)
[2020-10-28] MEDS: ENOXAPARIN NA (PORCINE) 40 MG/0.4 ML DISP.SYRIN SQ SCH (10:33)
[2020-10-28] MEDS: LACTATED RINGERS SOLUTION 1,000 ML/1,000 ML INFUS.BAG IV SCH (21:43)
[2020-10-28] MEDS: MONTELUKAST NA 10 MG TABLET PO SCH (21:43)
[2020-10-29] MEDS: ENOXAPARIN NA (PORCINE) 40 MG/0.4 ML DISP.SYRIN SQ SCH (09:44)
[2020-10-29] MEDS: ACETAMINOPHEN 500 MG TABLET (FP) PO PRN ×3 (09:44→21:42)
[2020-10-29] MEDS: LACTATED RINGERS SOLUTION 1,000 ML/1,000 ML INFUS.BAG IV SCH (09:44)
[2020-10-29 15:11] LABS: CALCIUM 9.5 mg/dL (8.5-10.1)
[2020-10-29 15:12] LABS: ALBUMIN 3.9 g/dl (3.4-5.0); BLOOD UREA NITROGEN 8.6 mg/dL (7-18)
[2020-10-29 15:15] LABS: CREATININE 0.7 mg/dL (0.55-1.3)
[2020-10-29 15:17] LABS: BILIRUBIN,TOTAL 0.5 mg/dL (0.2-1); TOT PROT 8.3 g/dl (6.4-8.2)
[2020-10-29] MEDS ORDERED: amLODIPine BESYLATE 5 MG TABLET (FP) PO ONE (21:22)
[2020-10-29] MEDS: MONTELUKAST NA 10 MG TABLET PO SCH (21:42)
[2020-10-30] MEDS: ACETAMINOPHEN 500 MG TABLET (FP) PO PRN (03:39)
[2020-10-30 04:52] LABS: EPI CELLS 31 /uL (0-25.1); HYALINE CASTS 10 /uL (0-3.1); URINE APPEARANCE CLOUDY; URINE BACTERIA 159 /uL (0-1359); URINE BILIRUBIN NEGATIVE (NEGATIVE); URINE COLOR YELLOW; URINE GLUCOSE (UA) NEGATIVE (NEGATIVE); URINE KETONE TRACE (NEGATIVE); URINE LEUK ESTERASE 1+ (NEGATIVE); URINE NITRITE NEGATIVE (NEGATIVE); URINE PROTEIN NEGATIVE (NEGATIVE); URINE WBC 65 /uL (0-25.8)
[2020-10-30 06:31] LABS: URINE RBC 0 /uL (0-23.9)
[2020-10-30 06:32] LABS: URINE CRYSTALS PRESENT /hpf
[2020-10-30] MEDS: ENOXAPARIN NA (PORCINE) 40 MG/0.4 ML DISP.SYRIN SQ SCH (09:56)
[2020-10-30] MEDS: LACTATED RINGERS SOLUTION 1,000 ML/1,000 ML INFUS.BAG IV SCH (09:59)
[2020-10-30 10:11] LABS: HEMATOCRIT 43.9 % (32.4-45.2); HEMOGLOBIN 14.6 GM/dL (10.7-15.3); MCH 29.2 pg (25.7-33.7); MCHC 33.2 g/dl (32.0-36.0); MEAN CELL VOLUME 87.8 fl (80-96); MEAN PLT VOLUME 8.5 fl (7.5-11.1); PLATELET COUNT 369 10^3/uL (134-434); RDW 14.8 % (11.6-15.6); WHITE BLOOD COUNT 6.3 K/mm3 (4.0-10.0)
[2020-10-30 10:29] LABS: CALCIUM 9.8 mg/dL (8.5-10.1)
[2020-10-30 10:30] LABS: ALBUMIN 4.4 g/dl (3.4-5.0); BLOOD UREA NITROGEN 11.9 mg/dL (7-18)
[2020-10-30 10:34] LABS: CREATININE 0.9 mg/dL (0.55-1.3)
[2020-10-30 10:35] LABS: TOT PROT 8.2 g/dl (6.4-8.2)
[2020-10-30 10:43] LABS: BILIRUBIN,TOTAL 0.4 mg/dL (0.2-1)
[2020-10-30] MEDS ORDERED: POTASSIUM CHLORIDE TABS 20 MEQ TABLET.ER (FP) PO ONE (12:28)
[2020-10-30 13:01] VITALS: BP 132/94; PULSE 102; TEMP 99.3
== END 2020-10-30 18:00 | disposition home or self-care (01) | DRG 247 ==
LOC: JER 01:51 → JERBED 08:53 → J6S 14:17
PROVIDERS: ADMIT Internal Medicine; ATTEND Internal Medicine
DX: K56.50 Intestinal adhesions [bands], unspecified as to partial versus complete obstruction (principal); M62.838 Other muscle spasm; R11.2 Nausea with vomiting, unspecified; R74.01 Elevation of levels of liver transaminase levels; K71.9 Toxic liver disease, unspecified; T36.95XA Adverse effect of unspecified systemic antibiotic, initial encounter; E66.9 Obesity, unspecified; Z68.32 Body mass index [BMI] 32.0-32.9, adult; K57.90 Diverticulosis of intestine, part unspecified, without perforation or abscess without bleeding; R94.5 Abnormal results of liver function studies; K52.9 Noninfective gastroenteritis and colitis, unspecified
CPT/HCPCS: 36415; 74019-TC-FY; 74176-TC; 74177-TC; 74181-TC; 76700-TC; 80048; 80053; 80076; 81003; 82550; 82553; 83605; 83615; 83690; 83735; 84100; 85025; 85027; 85610; 85730; 86706; 86707; 86708; 87040; 87086; 87340; 87350; 87517; 87522; 93005; 93010; 99285-25; C9803; J0131; Q9967; U0003; U0005

== ENCOUNTER 2021-01-28 04:29 | Day surgery (SDC) | payer OTHER ==
[2021-01-24 16:24] VITALS: BMI 34.2
[2021-01-28] MEDS ORDERED: SIMETHICONE 40 MG/0.6 ML BOTTLE ONE (11:22)
[2021-01-28 11:57] VITALS: BP 146/90; PULSE 76; TEMP 98
== END 2021-01-28 12:08 | disposition home or self-care (01) ==
LOC: JASU-ENDO 04:29
PROVIDERS: ATTEND Internal Medicine Gastroenterology
PROC: 0DJD8ZZ Inspection of Lower Intestinal Tract, Via Natural or Artificial Opening Endoscopic (ICD-10-PCS; principal; 2021-01-28 10:15)
DX: Z12.11 Encounter for screening for malignant neoplasm of colon (principal); Z80.0 Family history of malignant neoplasm of digestive organs

== ENCOUNTER 2021-02-27 04:26 | Day surgery (SDC) | payer OTHER ==
[2021-02-25 08:43] VITALS: BMI 29.2
[2021-02-27 11:49] VITALS: BP 135/80; PULSE 82; TEMP 97.1
== END 2021-02-27 12:00 | disposition home or self-care (01) ==
LOC: JASU-ENDO 04:26
PROVIDERS: ATTEND Internal Medicine Gastroenterology
PROC: 0DJD8ZZ Inspection of Lower Intestinal Tract, Via Natural or Artificial Opening Endoscopic (ICD-10-PCS; principal; 2021-02-27 09:30)
DX: Z12.11 Encounter for screening for malignant neoplasm of colon (principal); K64.8 Other hemorrhoids

== ENCOUNTER 2021-09-27 14:21 | Inpatient (IN) | payer OTHER ==
[2021-09-27] MEDS ORDERED: ACETAMINOPHEN 325 MG TABLET (FP) PO ONE (14:52)
[2021-09-27] MEDS ORDERED: SODIUM CHLORIDE 1,000 ML IV STA (14:52)
[2021-09-27] MEDS ORDERED: KETOROLAC TROMETHAMINE 30 MG/1 ML VIAL IVPUSH ONE (14:52)
[2021-09-27] MEDS ORDERED: ONDANSETRON 4 MG/2 ML VIAL IVPUSH ONE (14:53)
[2021-09-27] MEDS ORDERED: ACETAMINOPHEN 325 MG TABLET (FP) ONE (15:22)
[2021-09-27] MEDS ORDERED: KETOROLAC TROMETHAMINE 15 MG/ML VIAL ONE (15:23)
[2021-09-27] MEDS ORDERED: ONDANSETRON 4 MG/2 ML VIAL ONE (15:23)
[2021-09-27 15:41] LABS: BASO % 0.9 % (0-2.0); EOS % 0.7 % (0-4.5); HEMATOCRIT 41.6 % (32.4-45.2); HEMOGLOBIN 13.6 GM/dL (10.7-15.3); LYMPH % 28.9 % (8-40); MCHC 32.6 g/dl (32.0-36.0); MEAN CELL VOLUME 88.8 fl (80-96); MONO % 5.8 % (3.8-10.2); NEUT % 63.7 % (42.8-82.8); PLATELET COUNT 453 10^3/uL (134-434); RBC 4.69 M/mm3 (3.60-5.2); RDW 14.1 % (11.6-15.6); WHITE BLOOD COUNT 10.6 K/mm3 (4.0-10.0)
[2021-09-27 15:44] LABS: ALBUMIN 4.1 g/dl (3.4-5.0); BLOOD UREA NITROGEN 10.2 mg/dL (7-18)
[2021-09-27] MEDS ORDERED: morphine CARPU-JECT 4 MG/1 ML DISP.SYRIN IVPUSH ONE ×2 (15:44→21:03)
[2021-09-27 15:47] LABS: CREATININE 0.8 mg/dL (0.55-1.3)
[2021-09-27 15:48] LABS: BILIRUBIN,TOTAL 0.6 mg/dL (0.2-1); TOT PROT 7.9 g/dl (6.4-8.2)
[2021-09-27] MEDS ORDERED: SODIUM CHLORIDE 0.9% 500 ML INFUS.BAG IV ONE (18:13)
[2021-09-27] MEDS ORDERED: morphine CARPU-JECT 2 MG/1 ML DISP.SYRIN IVPUSH ONE (18:14)
[2021-09-27 20:21] LABS: EPI CELLS >36 /uL (0-25.1); HYALINE CASTS 6 /uL (0-3.1); URINE APPEARANCE CLOUDY; URINE BACTERIA 65 /uL (0-1359); URINE BILIRUBIN NEGATIVE (NEGATIVE); URINE COLOR DK YELLOW; URINE GLUCOSE (UA) NEGATIVE (NEGATIVE); URINE KETONE NEGATIVE (NEGATIVE); URINE LEUK ESTERASE 1+ (NEGATIVE); URINE NITRITE NEGATIVE (NEGATIVE); URINE PROTEIN TRACE (NEGATIVE); URINE RBC 7885 /uL (0-23.9); URINE WBC 73 /uL (0-25.8)
[2021-09-27] MEDS ORDERED: HYDROmorphone HCl 2 MG/ML VIAL IVPUSH ONE (23:57)
[2021-09-28] MEDS ORDERED: morphine SULFATE 4 MG/ML VIAL ONE (00:19)
[2021-09-28] MEDS ORDERED: TAMSULOSIN HCL 0.4 MG CAP ONE ×2 (00:19→09:18)
[2021-09-28] MEDS: TAMSULOSIN HCL 0.4 MG CAP PO SCH ×2 (00:30→09:25)
[2021-09-28] MEDS: SODIUM CHLORIDE 1,000 ML IV SCH (00:30)
[2021-09-28 08:32] LABS: BASO % 0.6 % (0-2.0); EOS % 1.5 % (0-4.5); HEMATOCRIT 38.5 % (32.4-45.2); HEMOGLOBIN 12.9 GM/dL (10.7-15.3); LYMPH % 35.1 % (8-40); MCH 29.2 pg (25.7-33.7); MCHC 33.4 g/dl (32.0-36.0); MEAN CELL VOLUME 87.4 fl (80-96); MEAN PLT VOLUME 9.1 fl (7.5-11.1); MONO % 6.4 % (3.8-10.2); NEUT % 56.4 % (42.8-82.8); PLATELET COUNT 276 10^3/uL (134-434); RBC 4.41 M/mm3 (3.60-5.2); RDW 14.5 % (11.6-15.6); WHITE BLOOD COUNT 5.8 K/mm3 (4.0-10.0)
[2021-09-28 08:43] LABS: CALCIUM 8.6 mg/dL (8.5-10.1); MAGNESIUM 1.8 mg/dL (1.8-2.4)
[2021-09-28 08:44] LABS: ALBUMIN 3.6 g/dl (3.4-5.0); BLOOD UREA NITROGEN 5.8 mg/dL (7-18)
[2021-09-28 08:46] LABS: CREATININE 0.6 mg/dL (0.55-1.3)
[2021-09-28 08:48] LABS: TOT PROT 6.8 g/dl (6.4-8.2)
[2021-09-28 08:49] LABS: BILIRUBIN,TOTAL 0.9 mg/dL (0.2-1)
[2021-09-28] MEDS ORDERED: ENOXAPARIN NA (PORCINE) 40 MG/0.4 ML DISP.SYRIN SQ ONE (09:18)
[2021-09-28] MEDS: ENOXAPARIN NA (PORCINE) 40 MG/0.4 ML DISP.SYRIN SQ SCH (09:25)
[2021-09-28] MEDS: morphine SULFATE 4 MG/ML VIAL IVPUSH PRN ×2 (13:29→18:33)
[2021-09-28] MEDS ORDERED: POTASSIUM CHLORIDE TABS 20 MEQ TABLET.ER (FP) PO ONE ×2 (15:29→15:34)
[2021-09-28 18:44] VITALS: BMI 32.9
[2021-09-29] MEDS: SODIUM CHLORIDE 1,000 ML IV SCH ×2 (00:10→14:56)
[2021-09-29 08:07] VITALS: RESP 18
[2021-09-29] MEDS: morphine SULFATE 4 MG/ML VIAL IVPUSH PRN ×3 (10:03→18:30)
[2021-09-29] MEDS: TAMSULOSIN HCL 0.4 MG CAP PO SCH (10:04)
[2021-09-29] MEDS: ENOXAPARIN NA (PORCINE) 40 MG/0.4 ML DISP.SYRIN SQ SCH (10:04)
[2021-09-29 12:46] LABS: BASO % 0.8 % (0-2.0); EOS % 0.9 % (0-4.5); HEMATOCRIT 37.3 % (32.4-45.2); HEMOGLOBIN 12.3 GM/dL (10.7-15.3); MCHC 32.9 g/dl (32.0-36.0); MEAN CELL VOLUME 88.1 fl (80-96); MEAN PLT VOLUME 8.5 fl (7.5-11.1); MONO % 5.7 % (3.8-10.2); NEUT % 66.6 % (42.8-82.8); PLATELET COUNT 319 10^3/uL (134-434); RBC 4.23 M/mm3 (3.60-5.2); RDW 14.2 % (11.6-15.6); WHITE BLOOD COUNT 7.1 K/mm3 (4.0-10.0)
[2021-09-29 12:53] LABS: INR 1.09 (0.83-1.09); PROTHROMBIN TIME (PATIENT) 12.6 SEC (9.7-13.0)
[2021-09-29 12:55] LABS: ACTIVATED PTT 28.8 SECONDS (25.2-36.5)
[2021-09-29 13:06] LABS: CALCIUM 8.7 mg/dL (8.5-10.1)
[2021-09-29 13:07] LABS: ALBUMIN 3.5 g/dl (3.4-5.0)
[2021-09-29 13:08] LABS: BLOOD UREA NITROGEN 5.7 mg/dL (7-18)
[2021-09-29 13:10] LABS: CREATININE 0.5 mg/dL (0.55-1.3)
[2021-09-29 13:12] LABS: BILIRUBIN,TOTAL 0.6 mg/dL (0.2-1); TOT PROT 6.6 g/dl (6.4-8.2)
[2021-09-29 14:06] LABS: CMV IgM < 30.0 AU/mL (0.0-29.9)
[2021-09-29] MEDS ORDERED: POTASSIUM CHLORIDE ORAL LIQUID 20 MEQ/15 ML PO ONE ×2 (14:30→17:30)
[2021-09-29 18:37] LABS: BLOOD UREA NITROGEN 5.6 mg/dL (7-18)
[2021-09-29 18:40] LABS: CREATININE 0.5 mg/dL (0.55-1.3)
[2021-09-30] MEDS: SODIUM CHLORIDE 1,000 ML IV SCH (02:08)
[2021-09-30] MEDS: TAMSULOSIN HCL 0.4 MG CAP PO SCH (08:31)
[2021-09-30 08:41] VITALS: BP 156/94; PULSE 81; TEMP 97.8
[2021-09-30] MEDS: ENOXAPARIN NA (PORCINE) 40 MG/0.4 ML DISP.SYRIN SQ SCH (09:22)
== END 2021-09-30 11:07 | disposition short-term general hospital (02) | DRG 282 ==
LOC: JER 14:21 → JERBED 21:01 → J7W 09-28 18:29
PROVIDERS: ADMIT Hospitalist; ATTEND Internal Medicine
DX: K85.90 Acute pancreatitis without necrosis or infection, unspecified (principal); N20.0 Calculus of kidney; K57.90 Diverticulosis of intestine, part unspecified, without perforation or abscess without bleeding; L29.8 Other pruritus; M54.50 Low back pain, unspecified; T40.2X5A Adverse effect of other opioids, initial encounter; R31.29 Other microscopic hematuria; R79.89 Other specified abnormal findings of blood chemistry; M51.36 Other intervertebral disc degeneration, lumbar region; M51.37 Other intervertebral disc degeneration, lumbosacral region; B17.9 Acute viral hepatitis, unspecified; K83.1 Obstruction of bile duct; Z86.718 Personal history of other venous thrombosis and embolism
CPT/HCPCS: 36415; 71045-TC-FY; 74176-TC; 74181-TC; 76705-TC; 80048; 80053; 80061; 81003; 82150; 82728; 83036; 83516; 83540; 83550; 83605; 83690; 83735; 84100; 84436; 85025; 85610; 85730; 86038; 86644; 86645; 86708; 86709; 86803; 87340; 87517; 93005; 93010; 99285-25; C9803-CS; U0003; U0005

== ENCOUNTER 2021-12-27 20:21 | Emergency (ER) | payer OTHER ==
[2021-12-27 20:25] VITALS: BP 153/84; PULSE 110; RESP 18; TEMP 98.4; BMI 31.2
[2021-12-27] MEDS ORDERED: ONDANSETRON 4 MG/2 ML VIAL IVPUSH ONE (21:12)
[2021-12-27] MEDS ORDERED: MAG HYDROX/AL HYDROX/SIMETH -MYLANTA- ORAL SUSPENSION PO ONE (21:12)
[2021-12-27] MEDS ORDERED: FAMOTIDINE 20 MG/50 ML IVPB 20 MG/50 ML MG IVPB ONE ×2 (21:12→21:16)
[2021-12-27] MEDS ORDERED: ACETAMINOPHEN 1000 MG/100 ML BAG IVPB ONE (21:12)
[2021-12-27] MEDS ORDERED: ACETAMINOPHEN INJECTION 100 ML IVPB ONE (21:16)
[2021-12-27] MEDS ORDERED: SUCRALFATE 1 GM TABLET (FP) ONE (21:16)
[2021-12-27] MEDS ORDERED: ONDANSETRON 4 MG/2 ML VIAL ONE (21:16)
[2021-12-27] MEDS ORDERED: MAG HYDROX/AL HYDROX/SIMETH 30 ML UNIT-DOSE CUP ONE (21:16)
[2021-12-27] MEDS ORDERED: SUCRALFATE 1 GM TABLET (FP) PO SCH (22:00)
[2021-12-27 22:18] LABS: BASO % 0.3 % (0-2.0); HEMATOCRIT 40.1 % (32.4-45.2); HEMOGLOBIN 13.5 GM/dL (10.7-15.3); LYMPH % 18.8 % (8-40); MCH 29.2 pg (25.7-33.7); MCHC 33.6 g/dl (32.0-36.0); MEAN CELL VOLUME 87.1 fl (80-96); MEAN PLT VOLUME 7.6 fl (7.5-11.1); MONO % 4.7 % (3.8-10.2); NEUT % 76.2 % (42.8-82.8); PLATELET COUNT 375 10^3/uL (134-434); RDW 14.7 % (11.6-15.6)
[2021-12-27 22:27] LABS: INR 1.03 (0.83-1.09); PROTHROMBIN TIME (PATIENT) 11.8 SEC (9.7-13.0)
[2021-12-27 22:30] LABS: ACTIVATED PTT 25.1 SECONDS (25.2-36.5); CALCIUM 9.9 mg/dL (8.5-10.1)
[2021-12-27 22:31] LABS: ALBUMIN 4.2 g/dl (3.4-5.0); BLOOD UREA NITROGEN 17.5 mg/dL (7-18)
[2021-12-27 22:34] LABS: CREATININE 0.9 mg/dL (0.55-1.3)
[2021-12-27 22:35] LABS: BILIRUBIN,TOTAL 0.3 mg/dL (0.2-1)
[2021-12-27] MEDS ORDERED: morphine SULFATE 4 MG/ML VIAL IVPUSH ONE (22:48)
[2021-12-27] MEDS ORDERED: morphine SULFATE 4 MG/ML VIAL ONE (22:50)
[2021-12-28 03:24] LABS: URINE APPEARANCE CLEAR; URINE BILIRUBIN NEGATIVE (NEGATIVE); URINE COLOR YELLOW; URINE GLUCOSE (UA) NEGATIVE (NEGATIVE); URINE KETONE NEGATIVE (NEGATIVE); URINE LEUK ESTERASE NEGATIVE (NEGATIVE); URINE NITRITE NEGATIVE (NEGATIVE); URINE PROTEIN TRACE (NEGATIVE); URINE UROBILINOGEN 0.2 mg/dL (0.2-1.0)
[2021-12-28] MEDS ORDERED: ACETAMINOPHEN 500 MG TABLET (FP) PO ONE (04:29)
[2021-12-28] MEDS ORDERED: ACETAMINOPHEN 325 MG TABLET (FP) ONE (04:32)
== END 2021-12-28 05:08 | disposition home or self-care (01) ==
LOC: JER 20:21
PROC: 3E033GC Introduction of Other Therapeutic Substance into Peripheral Vein, Percutaneous Approach (ICD-10-PCS; principal; 2021-12-27)
DX: N20.0 Calculus of kidney (principal); R11.0 Nausea
CPT/HCPCS: 0241U-QW; 36415; 71046-TC-FY; 74177-TC; 80053; 81003; 83690; 84484; 84703; 85025; 85610; 85730; 86850; 86900; 86901; 87086; 93005; 93010; 99285-25; Q9967

== ENCOUNTER 2022-05-18 10:31 | Emergency (ER) | payer OTHER ==
[2022-05-18 10:36] VITALS: BMI 29.2
[2022-05-18] MEDS ORDERED: ACETAMINOPHEN 1000 MG/100 ML BAG IVPB ONE (12:12)
[2022-05-18] MEDS ORDERED: ONDANSETRON 4 MG/2 ML VIAL IVPUSH ONE (12:12)
[2022-05-18] MEDS ORDERED: ONDANSETRON 4 MG/2 ML VIAL ONE (13:00)
[2022-05-18] MEDS ORDERED: ACETAMINOPHEN INJECTION 100 ML IVPB ONE (13:00)
[2022-05-18 13:47] LABS: BASO % 0.8 % (0-2.0); EOS % 0.4 % (0-4.5); HEMATOCRIT 36.4 % (32.4-45.2); LYMPH % 30.6 % (8-40); MCH 27.7 pg (25.7-33.7); MCHC 32.9 g/dl (32.0-36.0); MEAN CELL VOLUME 84.1 fl (80-96); MEAN PLT VOLUME 8.7 fl (7.5-11.1); MONO % 8.1 % (3.8-10.2); NEUT % 60.1 % (42.8-82.8); PLATELET COUNT 377 10^3/uL (134-434); RBC 4.33 M/mm3 (3.60-5.2); RDW 15.5 % (11.6-15.6); WHITE BLOOD COUNT 12.5 K/mm3 (4.0-10.0)
[2022-05-18 14:10] LABS: CHLORIDE 106 mmol/L (98-107); SODIUM 141 mmol/L (136-145)
[2022-05-18 14:12] LABS: CALCIUM 8.6 mg/dL (8.5-10.1); GLUCOSE,RANDOM 73 mg/dL (74-106); LIPASE 50 U/L (73-393)
[2022-05-18 14:13] LABS: BLOOD UREA NITROGEN 9.3 mg/dL (7-18); CO2 22 mmol/L (21-32)
[2022-05-18 14:15] LABS: SGOT/AST 68 U/L (15-37)
[2022-05-18 14:16] LABS: CREATININE 0.7 mg/dL (0.55-1.3); SGPT/ALT 48 U/L (13-61)
[2022-05-18 14:17] LABS: BILIRUBIN,TOTAL 0.6 mg/dL (0.2-1); TOT PROT 7.3 g/dl (6.4-8.2)
[2022-05-18 14:18] LABS: ALK PHOS 110 U/L (45-117)
[2022-05-18 14:21] LABS: ANION GAP 13 MMOL/L (8-16)
[2022-05-18] MEDS ORDERED: MAGNESIUM SULF 50% (8.12 MEQ/2 ML-1 GM VIAL) IVPB ONE (14:25)
[2022-05-18] MEDS ORDERED: POTASSIUM CHLORIDE ORAL LIQUID 20 MEQ/15 ML PO ONE ×2 (14:27→15:21)
[2022-05-18 14:36] LABS: ERYTHROCYTE SEDIMENTATION RATE 14 mm/hr (0-30)
[2022-05-18] MEDS ORDERED: LACTATED RINGERS SOLUTION 1,000 ML/1,000 ML INFUS.BAG IV STA (14:38)
[2022-05-18] MEDS: KCL 10 MEQ IVPB 10 MEQ/100 ML INFUS.BAG IVPB SCH ×2 (14:55→15:38)
[2022-05-18] MEDS ORDERED: MAGNESIUM SULFATE IN WATER 2 GM/50 ML IVPB IVPB ONE (14:58)
[2022-05-18] MEDS ORDERED: POTASSIUM CHLORIDE ORAL LIQUID 20 MEQ/15 ML ONE ×2 (14:58→15:23)
[2022-05-18 15:02] LABS: MAGNESIUM 1.2 mg/dL (1.8-2.4)
[2022-05-18 15:04] LABS: PHOSPHOROUS 1.4 mg/dL (2.5-4.9)
[2022-05-18 16:24] VITALS: TEMP 98.1
[2022-05-18 19:35] VITALS: BP 129/80; PULSE 76; RESP 18
== END 2022-05-18 19:13 | disposition short-term general hospital (02) ==
LOC: JER 10:31 → UNDOADMIN 15:31 → JERBED 15:31
PROC: 3E033NZ Introduction of Analgesics, Hypnotics, Sedatives into Peripheral Vein, Percutaneous Approach (ICD-10-PCS; principal; 2022-05-18)
PROC: 3E033NZ Introduction of Analgesics, Hypnotics, Sedatives into Peripheral Vein, Percutaneous Approach (ICD-10-PCS; 2022-05-18)
PROC: 3E033NZ Introduction of Analgesics, Hypnotics, Sedatives into Peripheral Vein, Percutaneous Approach (ICD-10-PCS; 2022-05-18)
PROC: 3E033GC Introduction of Other Therapeutic Substance into Peripheral Vein, Percutaneous Approach (ICD-10-PCS; 2022-05-18)
DX: E87.6 Hypokalemia (principal); E83.42 Hypomagnesemia; Z11.52 Encounter for screening for COVID-19
CPT/HCPCS: 0241U-QW; 36415; 70450-TC; 70496-TC; 70498-TC; 71045-TC-FY; 72125-TC; 80053; 82550; 82553; 83690; 83735; 84100; 84484; 85025; 85651; 86140; 93005; 93010; 99285-25

== ENCOUNTER 2022-08-02 13:16 | Inpatient (IN) | payer OTHER ==
[2022-08-02] MEDS ORDERED: ONDANSETRON 4 MG/2 ML VIAL IVPUSH PRN (13:51)
[2022-08-02] MEDS ORDERED: morphine CARPU-JECT 4 MG/1 ML DISP.SYRIN IVPUSH ONE ×2 (13:51→17:24)
[2022-08-02] MEDS ORDERED: morphine SULFATE 4 MG/ML VIAL ONE ×2 (14:15→17:41)
[2022-08-02 16:19] LABS: POTASSIUM 3.7 mmol/L (3.5-5.1)
[2022-08-02 16:24] LABS: ALBUMIN 4.6 g/dl (3.4-5.0); BLOOD UREA NITROGEN 11.7 mg/dL (7-18); MAGNESIUM 2.1 mg/dL (1.8-2.4)
[2022-08-02 16:26] LABS: BILIRUBIN,DIRECT 0.1 mg/dL (0.0-0.2); CREATININE 0.6 mg/dL (0.55-1.3)
[2022-08-02 16:27] LABS: PHOSPHOROUS 3.2 mg/dL (2.5-4.9)
[2022-08-02 16:28] LABS: BILIRUBIN,TOTAL 0.6 mg/dL (0.2-1); TOT PROT 8.4 g/dl (6.4-8.2)
[2022-08-02 17:39] LABS: BASO % 0.9 % (0-2.0); EOS % 1.3 % (0-4.5); HEMATOCRIT 37.6 % (32.4-45.2); HEMOGLOBIN 12.3 GM/dL (10.7-15.3); LYMPH % 39.3 % (8-40); MCH 28.9 pg (25.7-33.7); MCHC 32.7 g/dl (32.0-36.0); MEAN CELL VOLUME 88.3 fl (80-96); MEAN PLT VOLUME 7.9 fl (7.5-11.1); MONO % 6.1 % (3.8-10.2); NEUT % 52.4 % (42.8-82.8); PLATELET COUNT 371 10^3/uL (134-434); RBC 4.26 M/mm3 (3.60-5.2); WHITE BLOOD COUNT 7.5 K/mm3 (4.0-10.0)
[2022-08-02 20:47] VITALS: BMI 28.9
[2022-08-02] MEDS ORDERED: HEPARIN NA (PORCINE) 5,000 UNITS/ML 1ML VIAL SQ SCH (22:00)
[2022-08-03] MEDS: traMADol HCL 50 MG TABLET PO PRN ×2 (00:12→12:53)
[2022-08-03] MEDS ORDERED: ACETAMINOPHEN 1000 MG/100 ML BAG IVPB ONE (02:59)
[2022-08-03 07:42] LABS: EOS % 2.2 % (0-4.5); HEMATOCRIT 36.9 % (32.4-45.2); HEMOGLOBIN 12.6 GM/dL (10.7-15.3); LYMPH % 37.8 % (8-40); MCH 30.2 pg (25.7-33.7); MCHC 34.1 g/dl (32.0-36.0); MEAN CELL VOLUME 88.5 fl (80-96); MEAN PLT VOLUME 8.8 fl (7.5-11.1); MONO % 0.8 % (3.8-10.2); NEUT % 58.2 % (42.8-82.8); PLATELET COUNT 289 10^3/uL (134-434); RBC 4.17 M/mm3 (3.60-5.2)
[2022-08-03 07:51] LABS: POTASSIUM 3.8 mmol/L (3.5-5.1)
[2022-08-03 07:55] LABS: WHITE BLOOD COUNT 7.5 K/mm3 (4.0-10.0)
[2022-08-03 07:58] LABS: ALBUMIN 3.7 g/dl (3.4-5.0); BLOOD UREA NITROGEN 10.7 mg/dL (7-18); CALCIUM 9.7 mg/dL (8.5-10.1)
[2022-08-03 08:00] LABS: MAGNESIUM 1.8 mg/dL (1.8-2.4)
[2022-08-03 08:01] LABS: CREATININE 0.6 mg/dL (0.55-1.3); PHOSPHOROUS 3.9 mg/dL (2.5-4.9)
[2022-08-03 08:03] LABS: TOT PROT 7.1 g/dl (6.4-8.2)
[2022-08-03 08:34] LABS: BILIRUBIN,TOTAL 0.6 mg/dL (0.2-1)
[2022-08-03 09:02] LABS: ERYTHROCYTE SEDIMENTATION RATE 3 mm/hr (0-30)
[2022-08-03 09:02] LABS: PH,URINE 5.5 (5.0-8.0); URINE APPEARANCE CLEAR; URINE BILIRUBIN NEGATIVE (NEGATIVE); URINE COLOR YELLOW; URINE GLUCOSE (UA) NEGATIVE (NEGATIVE); URINE KETONE 1+ (NEGATIVE); URINE LEUK ESTERASE NEGATIVE (NEGATIVE); URINE NITRITE NEGATIVE (NEGATIVE); URINE PROTEIN NEGATIVE (NEGATIVE); URINE UROBILINOGEN 0.2 mg/dL (0.2-1.0)
[2022-08-03] MEDS: PREGABALIN 50 MG CAPSULE PO SCH ×2 (09:09→23:19)
[2022-08-03] MEDS: ENOXAPARIN NA (PORCINE) 40 MG/0.4 ML DISP.SYRIN SQ SCH (09:09)
[2022-08-03 09:13] LABS: COCAINE, UR NEGATIVE (NEGATIVE); URINE AMPHETAMINES NEGATIVE (NEGATIVE)
[2022-08-03 09:14] LABS: METHADONE, UR NEGATIVE (NEGATIVE); OPIATES, URI POSITIVE (NEGATIVE); PHENCYCLIDINE,URINE NEGATIVE (NEGATIVE); URINE BARBITURATES NEGATIVE (NEGATIVE); URINE BENZODIAZEPINES NEGATIVE (NEGATIVE)
[2022-08-03] MEDS ORDERED: PREGABALIN 50 MG CAPSULE PO SCH (10:00)
[2022-08-03 12:01] LABS: HIV INTERPRETATION NEGATIVE (NEGATIVE)
[2022-08-03] MEDS: BACLOFEN 10 MG TABLET (FP) PO PRN ×2 (13:01→21:06)
[2022-08-03] MEDS: AMITRIPTYLINE HCL 10 MG TABLET PO SCH ×2 (21:06→23:19)
[2022-08-04] MEDS: traMADol HCL 50 MG TABLET PO PRN ×3 (03:10→21:39)
[2022-08-04 09:19] LABS: BLOOD UREA NITROGEN 11.5 mg/dL (7-18)
[2022-08-04 09:22] LABS: CREATININE 0.6 mg/dL (0.55-1.3)
[2022-08-04] MEDS: ENOXAPARIN NA (PORCINE) 40 MG/0.4 ML DISP.SYRIN SQ SCH (11:02)
[2022-08-04] MEDS: PREGABALIN 100 MG CAPSULE PO SCH ×2 (11:04→21:39)
[2022-08-04] MEDS: BACLOFEN 10 MG TABLET (FP) PO PRN ×2 (11:04→21:38)
[2022-08-04 12:06] LABS: HEMATOCRIT 37.4 % (32.4-45.2); HEMOGLOBIN 12.4 GM/dL (10.7-15.3); MCH 29.1 pg (25.7-33.7); MCHC 33.2 g/dl (32.0-36.0); MEAN CELL VOLUME 87.7 fl (80-96); MEAN PLT VOLUME 7.9 fl (7.5-11.1); PLATELET COUNT 352 10^3/uL (134-434); RBC 4.27 M/mm3 (3.60-5.2); RDW 16.5 % (11.6-15.6); WHITE BLOOD COUNT 6.3 K/mm3 (4.0-10.0)
[2022-08-04 20:10] LABS: CYCLIC CITRULLINE PEPTIDE AB 7 units (0-19)
[2022-08-04] MEDS: AMITRIPTYLINE HCL 10 MG TABLET PO SCH (21:39)
[2022-08-05] MEDS: BACLOFEN 10 MG TABLET (FP) PO SCH ×2 (10:24→21:07)
[2022-08-05] MEDS: ENOXAPARIN NA (PORCINE) 40 MG/0.4 ML DISP.SYRIN SQ SCH (10:24)
[2022-08-05] MEDS: PREGABALIN 100 MG CAPSULE PO SCH ×2 (10:25→21:07)
[2022-08-05 10:26] LABS: HEMATOCRIT 38.7 % (32.4-45.2); HEMOGLOBIN 12.9 GM/dL (10.7-15.3); MCH 29.8 pg (25.7-33.7); MCHC 33.4 g/dl (32.0-36.0); MEAN CELL VOLUME 89.1 fl (80-96); MEAN PLT VOLUME 8.6 fl (7.5-11.1); PLATELET COUNT 346 10^3/uL (134-434); RBC 4.35 M/mm3 (3.60-5.2); RDW 16.6 % (11.6-15.6); WHITE BLOOD COUNT 6.1 K/mm3 (4.0-10.0)
[2022-08-05 11:06] LABS: CALCIUM 9.8 mg/dL (8.5-10.1)
[2022-08-05 11:07] LABS: BLOOD UREA NITROGEN 11.2 mg/dL (7-18); MAGNESIUM 1.9 mg/dL (1.8-2.4)
[2022-08-05 11:10] LABS: CREATININE 0.6 mg/dL (0.55-1.3); PHOSPHOROUS 4.1 mg/dL (2.5-4.9)
[2022-08-05] MEDS ORDERED: SENNOSIDES 8.6MG TABLET (FP) PO SCH (22:00)
[2022-08-05] MEDS: AMITRIPTYLINE HCL 10 MG TABLET PO SCH (22:16)
[2022-08-06] MEDS: BACLOFEN 10 MG TABLET (FP) PO SCH (09:32)
[2022-08-06] MEDS: PREGABALIN 100 MG CAPSULE PO SCH (09:32)
[2022-08-06] MEDS: ENOXAPARIN NA (PORCINE) 40 MG/0.4 ML DISP.SYRIN SQ SCH (09:32)
[2022-08-06] MEDS: traMADol HCL 50 MG TABLET PO PRN (13:18)
[2022-08-06 14:54] VITALS: BP 124/72; PULSE 89; RESP 18; TEMP 99.1
[2022-08-06 18:07] LABS: ATYPICAL pANCA <1:20 titer (Neg:<1:20); C-ANCA <1:20 titer (Neg:<1:20)
== END 2022-08-06 18:19 | disposition home or self-care (01) | DRG 48 ==
LOC: JER 13:16 → UNDOADMOB 19:14 → INTOOBSV 19:14 → JERBED 19:14 → J6S 20:13 → JERBED 20:15 → OBSVTOIN 08-05 10:39
PROVIDERS: ADMIT Internal Medicine; ATTEND Internal Medicine
DX: M79.2 Neuralgia and neuritis, unspecified (principal); M79.7 Fibromyalgia; R20.2 Paresthesia of skin; M48.00 Spinal stenosis, site unspecified; M54.50 Low back pain, unspecified; G25.81 Restless legs syndrome; I12.9 Hypertensive chronic kidney disease with stage 1 through stage 4 chronic kidney disease, or unspecified chronic kidney disease; N18.9 Chronic kidney disease, unspecified; K57.90 Diverticulosis of intestine, part unspecified, without perforation or abscess without bleeding; M62.838 Other muscle spasm; M25.442 Effusion, left hand; M25.441 Effusion, right hand; Z85.3 Personal history of malignant neoplasm of breast
CPT/HCPCS: 0241U-QW; 36415; 72141-TC; 72148-TC; 73110-TC-LT-FY; 73110-TC-RT-FY; 73130-TC-LT-FY; 73130-TC-RT-FY; 73562-TC-LT-FY; 73562-TC-RT-FY; 80048; 80053; 80076; 80307; 81003; 82550; 82607; 82746; 83036; 83520; 83735; 84100; 84155; 84165; 84443; 85025; 85027; 85651; 86038; 86140; 86200; 86256; 86431; 87389; 97116-GP; 97162-GP; 99285-25; G0378; J0475; J1644